=== PATIENT | male | born 1985 | race Caucasian/White ===

== ENCOUNTER 2016-03-24 13:31 | Emergency (ER) | payer OTHER ==
[2016-03-24] MEDS ORDERED: Albuterol/Ipratropium NEB.SOL* Albuterol 2.5 MG/Ipratropium 0.5 MG 3 ML ONE (13:36)
[2016-03-24] MEDS ORDERED: Albuterol/Ipratropium NEB.SOL* Albuterol 2.5 MG/Ipratropium 0.5 MG 3 ML INH ONE (13:44)
[2016-03-24] MEDS ORDERED: methylPREDNISolone 125 MG* 2 ML VIAL IV ONE (13:45)
[2016-03-24] MEDS ORDERED: NS 0.9% 1000 ML* 1,000 ML IV ONE (13:45)
[2016-03-24] MEDS ORDERED: LORazepam INJ* 2 MG/ML 1 ML VIAL IV PUSH ONE (13:46)
[2016-03-24 14:20] VITALS: BP 151/96
[2016-03-24 14:21] LABS: Hematocrit 45 % (42-52); Hemoglobin 15.2 g/dl (14.0-18.0); Mean Corpuscular HGB Conc 34 g/dl (31-36); Mean Corpuscular Hemoglobin 29 pg (27-31); Mean Corpuscular Volume 87 fL (80-94); Mean Platelet Volume 8 um3 (7.4-10.4); Red Cell Distribution Width 13 % (10.5-15)
[2016-03-24 14:47] LABS: Albumin 4.3 g/dL (3.2-5.2); BUN/Creatinine Ratio 14.6 (8-20); C Reactive Protein 8.03 mg/L (< 5.00); EGFR African American 141.9 (>60); EGFR Non-African American 110.3 (>60); Globulin 3.2 g/dL (2-4); Potassium 3.4 mmol/L (3.5-5.0); Total Bilirubin 0.4 mg/dL (0.2-1.0); Total Protein 7.5 g/dL (6.4-8.9)
--- NOTE | 2016-03-24 15:19 | RAD ---
Indication: Shortness of breath, chest pain. Asthma. Panic attack. Comparison: None. Technique: Upright AP 1355 hours Report: Clear lungs and pleural spaces. Negative for pneumothorax. The heart, pulmonary vasculature, and mediastinal contours are unremarkable. Unremarkable osseous structures and soft tissue contours. IMPRESSION: No evidence for acute intrathoracic disease.
[2016-03-24] MEDS ORDERED: Potassium Chlor TAB* 20 MEQ TAB.ER PO ONE (15:24)
--- NOTE | 2016-03-24 15:30 | ED ---
Elbert Cruz Billy, scribed for Baron Reyes MD on 03/24/16 at 1404 . Asthma - HPI Summary HPI Summary: Patient is a 31 year-old male coming to [facility] presenting with an "asthma attack " following medication administered for eye dilation. He also reports productive cough and wheezing, "feeling like I have pneumonia even though I know I don't." He has no other complaints at this time. - History of Current Complaint Chief Complaint: EDAsthma Stated Complaint: DIFF BREATHING Time Seen by Provider: 03/24/16 13:33 Hx Obtained From: Patient Onset/Duration: Sudden Onset Timing: Constant Initial Severity: Moderate Current Severity: Moderate Pain Intensity: 5 Pain Scale Used: 0-10 Numeric Location/Character: Wheezing Aggravating Symptoms: Nothing Alleviating Symptoms: Nothing Associated Signs and Symptoms: Positive: Shortness of Breath, Other - productive cough - Allergy/Home Medications Allergies/Adverse Reactions: Allergies Allergy/AdvReac Type Severity Reaction Status Date / Time Doxycycline Allergy Severe GI Upset Verified 03/24/16 14:03 Prednisone Allergy Severe Itching Verified 03/24/16 14:03 Aspirin Allergy Unknown Unknown Verified 03/24/16 14:03 Reaction Details Penicillin G Allergy Unknown Unknown Verified 03/24/16 14:03 Reaction Details PMH/Surg Hx/FS Hx/Imm Hx Endocrine/Hematology History: Denies: Hx Diabetes, Hx Sickle Cell Disease Cardiovascular History: Denies: Hx Hypertension, Hx Pacemaker/ICD, Other Cardiovascular Problems/ Disorders Respiratory History: Reports: Hx Asthma - HAS INHALER GI History: Reports: Hx Gastroesophageal Reflux Disease - PT TAKES TUMS WHEN NEEDED, Hx Irritable Bowel - MILD SINCE REMOVAL OF GALLBLADDER, Hx Ulcer - HAD REMOVED Denies: Other GI Disorders History: Reports: Hx Kidney Stones - ON AND OFF Denies: Hx Renal Disease, Other Problems/Disorders Musculoskeletal History: Denies: Other Musculoskeletal History Sensory History: Reports: Hx Contacts or Glasses - GLASSES Denies: Hx Hearing Aid Opthamlomology History: Reports: Hx Contacts or Glasses - GLASSES Neurological History: Reports: Hx Migraine Psychiatric History: Reports: Hx Anxiety, Hx Depression Denies: Hx Panic Disorder - Surgical History Surgery Procedure, Year, and Place: GALLBLADDER 2012, ORAL X 9, RIGHT KNEE - 19 YRS OLD Hx Anesthesia Reactions: No - SLEEPS ALONG TIME AFTER Infectious Disease History: No Infectious Disease History: Denies: Traveled Outside the [place] in Last 30 Days - Family History Known Family History: Positive: Diabetes, Other - cancer - Social History Alcohol Use: None Substance Use Type: Reports: None Smoking Status (MU): Never Smoked Tobacco Review of Systems Negative: Fever Positive: Shortness Of Breath, Cough, Other - wheezing All Other Systems Reviewed And Are Negative: Yes Physical Exam - Summary Physical Exam Summary: VITAL SIGNS: Reviewed. GENERAL: Patient is an obese male with some distress secondary to the shortness of breath. However, he is able to speak in full sentences. HEAD AND FACE: Normocephalic and atraumatic. EYES: PERRLA, EOMI x 2, No injected conjunctiva. EARS: Hearing grossly intact. Ear canals and tympanic membranes WNL MOUTH: Dry oral mucosa. NECK: Supple, trachea is midline, no adenopathy, no JVD, no carotid bruit. CHEST: Symmetric, No intercostal or abdominal retraction, LUNGS: Diffuse bilateral wheezing and decreased breath sounds.No crackles. CVS: RRR,, S1 and S2 present, no murmurs or gallops appreciated. ABDOMEN: Soft, non-tender. No signs of distention. Positive BS. No rebound, no guarding, and no masses palpated. EXTREMITIES: FROM in all major joints, no edema, no cyanosis or clubbing. NEURO: Alert and oriented x 3. No acute neurological deficits. Speech is normal and follows commands. SKIN: Dry and warm Triage Information Reviewed: Yes Vital Signs On Initial Exam: Initial Vitals Temp Pulse Resp BP Pulse Ox 99 F 109 22 151/96 100 03/24/16 13:36 03/24/16 13:36 03/24/16 13:36 03/24/16 13:36 03/24/16 13:36 Vital Signs Reviewed: Yes - [place] Coma Scale Coma Scale Total: 15 Diagnostics - Vital Signs Vital Signs Temp Pulse Resp BP Pulse Ox 03/24/16 13:57 19 03/24/16 13:48 101 16 99 03/24/16 13:36 99 F 109 22 151/96 100 - Laboratory Lab Results: Lab Results 03/24/16 03/24/16 03/24/16 Range/Units 14:00 14:00 14:00 WBC 11.0 H (3.5-10.8) 10^3/ul RBC 5.20 (4.0-5.4) 10^6/ul Hgb 15.2 (14.0-18.0) g/dl Hct 45 (42-52) % MCV 87 (80-94) fL MCH 29 (27-31) pg MCHC 34 (31-36) g/dl RDW 13 (10.5-15) % Plt Count 300 (150-450) 10^3/ul MPV 8 (7.4-10.4) um3 Neut % (Auto) 62.2 (38-83) % Lymph % (Auto) 25.5 (25-47) % [place] % (Auto) 7.3 (1-9) % Eos % (Auto) 4.1 (0-6) % Baso % (Auto) 0.9 (0-2) % Absolute Neuts (auto) 6.9 (1.5-7.7) 10^3/ul Absolute Lymphs (auto) 2.8 (1.0-4.8) 10^3/ul Absolute Monos (auto) 0.8 (0-0.8) 10^3/ul Absolute Eos (auto) 0.4 (0-0.6) 10^3/ul Absolute Basos (auto) 0.1 (0-0.2) 10^3/ul Absolute Nucleated RBC 0.01 10^3/ul Nucleated RBC % 0.1 Sodium 137 (133-145) mmol/L Potassium 3.4 L (3.5-5.0) mmol/L Chloride 107 (101-111) mmol/L Carbon Dioxide 19 L (22-32) mmol/L Anion Gap 11 (2-11) mmol/L BUN 12 (6-24) mg/dL Creatinine 0.82 (0.67-1.17) mg/dL Est GFR ( Amer) 141.9 (>60) Est GFR (Non-Af Amer) 110.3 (>60) BUN/Creatinine Ratio 14.6 (8-20) Glucose 107 H (70-100) mg/dL Lactic Acid 4.7 H* (0.5-2.0) mmol/L Calcium 10.0 (8.6-10.3) mg/dL Total Bilirubin 0.40 (0.2-1.0) mg/dL AST 19 (13-39) U/L ALT 47 (7-52) U/L Alkaline Phosphatase 93 (34-104) U/L C-Reactive Protein 8.03 H (< 5.00) mg/L B-Natriuretic Peptide ( - 100) pg/mL Total Protein 7.5 (6.4-8.9) g/dL Albumin 4.3 (3.2-5.2) g/dL Globulin 3.2 (2-4) g/dL Albumin/Globulin Ratio 1.3 (1-3) 03/24/16 Range/Units 14:00 WBC (3.5-10.8) 10^3/ul RBC (4.0-5.4) 10^6/ul Hgb (14.0-18.0) g/dl Hct (42-52) % MCV (80-94) fL MCH (27-31) pg MCHC (31-36) g/dl RDW (10.5-15) % Plt Count (150-450) 10^3/ul MPV (7.4-10.4) um3 Neut % (Auto) (38-83) % Lymph % (Auto) (25-47) % [place] % (Auto) (1-9) % Eos % (Auto) (0-6) % Baso % (Auto) (0-2) % Absolute Neuts (auto) (1.5-7.7) 10^3/ul Absolute Lymphs (auto) (1.0-4.8) 10^3/ul Absolute Monos (auto) (0-0.8) 10^3/ul Absolute Eos (auto) (0-0.6) 10^3/ul Absolute Basos (auto) (0-0.2) 10^3/ul Absolute Nucleated RBC 10^3/ul Nucleated RBC % Sodium (133-145) mmol/L Potassium (3.5-5.0) mmol/L Chloride (101-111) mmol/L Carbon Dioxide (22-32) mmol/L Anion Gap (2-11) mmol/L BUN (6-24) mg/dL Creatinine (0.67-1.17) mg/dL Est GFR ( Amer) (>60) Est GFR (Non-Af Amer) (>60) BUN/Creatinine Ratio (8-20) Glucose (70-100) mg/dL Lactic Acid (0.5-2.0) mmol/L Calcium (8.6-10.3) mg/dL Total Bilirubin (0.2-1.0) mg/dL AST (13-39) U/L ALT (7-52) U/L Alkaline Phosphatase (34-104) U/L C-Reactive Protein (< 5.00) mg/L B-Natriuretic Peptide 9 ( - 100) pg/mL Total Protein (6.4-8.9) g/dL Albumin (3.2-5.2) g/dL Globulin (2-4) g/dL Albumin/Globulin Ratio (1-3) Result Diagrams: 03/24/16 14:00 03/24/16 14:00 Lab Statement: Any lab studies that have been ordered have been reviewed, and results considered in the medical decision making process. - Radiology CXR Xray Interpretation: No Acute Changes Radiology Interpretation Completed By: Radiologist Re-Evaluation - Re-Evaluation First Eval Re-Evaluation Time: 15:26 Change: Improved Asthma Course/Dx - Course Assessment/Plan: Patient is a 31 year-old male coming to [facility] presenting with an "asthma attack" following medication administered for eye dilation. He also reports productive cough and wheezing, "feeling like I have pneumonia even though I know I don't." He has no other complaints at this time. Bloodwork WNL except for slightly increased WBC of 11, potassium of 3.4 for which he was given potassium chloride. CXR shows no acute pathology. The patient seems to be very anxious, so he was given Ativan for anxiety, solu-medrol and albuterol for mild wheezing. After these medications, his symptoms have improved. It seems he had a mild exacerbation of asthma and anxiety. Therefore he will be discharged home to follow up with PCP. I discussed all the findings and test results with the patient. Patient was instructed to return to the emergency room immediately if any of the symptoms return or worsens. Patient understand and agree. Plan of care was discussed with the patient and understands and agrees. All questions were answered at patient satisfaction. There were no further complaints or concerns. Lung exam before discharge: CTA B/L. Good air exchange. No wheezing or crackles heard. CVS: S1 and S2 present. No murmurs appreciated. Patient is alert and oriented x 3. Patient is hemodynamically stable. Patient will be discharged home with follow up import export coordinator in the next 2-3 days - Diagnoses Differential Diagnosis/HQI/PQRI: Positive: Acute Asthma, Bronchitis, COPD Excerbation, Pneumonia, Reactive Airway Disease Provider Diagnoses: Asthma exacerbation, Anxiety Discharge - Discharge Plan Condition: Stable Disposition: HOME Patient Education Materials: Asthma (ED) Referrals: Noe Meyer MD [Primary Care Provider] - The documentation as recorded by the Elbert ashley Billy accurately reflects the service I personally performed and the decisions made by Eric lin Walter, MD.
== END 2016-03-24 15:49 | disposition home or self-care (01) ==
LOC: ED 13:31
DX: J45.901 Unspecified asthma with (acute) exacerbation (principal); F41.9 Anxiety disorder, unspecified; Z88.0 Allergy status to penicillin; Z88.6 Allergy status to analgesic agent; Z87.442 Personal history of urinary calculi
CPT/HCPCS: 36415; 71010; 80053; 83605; 83880; 85025; 86140; 94640; 96360; 96365; 96374; 96375; 99283; A9270-GY; J2060; J2930

== ENCOUNTER 2017-01-25 19:56 | Emergency (ER) | payer OTHER ==
[2017-01-25] MEDS ORDERED: NS 0.9% 1000 ML* 1,000 ML IV ONE (20:26)
[2017-01-25] MEDS ORDERED: Metoclopramide IV* 5 MG/ML 2 ML VIAL IV ONE (20:27)
[2017-01-25] MEDS ORDERED: Morphine INJ* 4 MG/ML 1 ML CARPUJECT IV ONE (20:29)
[2017-01-25] MEDS ORDERED: diPHENhydraMINE IV* 50 MG/ML 1 ml VIAL (BENADRYL) IV ONE (20:30)
[2017-01-25 21:03] LABS: Hematocrit 43 % (42-52); Hemoglobin 14.5 g/dl (14.0-18.0); Mean Corpuscular HGB Conc 34 g/dl (31-36); Mean Corpuscular Hemoglobin 30 pg (27-31); Mean Corpuscular Volume 88 fL (80-94); Mean Platelet Volume 8 um3 (7.4-10.4); Red Cell Distribution Width 13 % (10.5-15); White Blood Count 17.1 10^3/ul (3.5-10.8)
[2017-01-25] MEDS ORDERED: Magnesium Sulfate 2 GM IV* 2 GM/50 ML BAG IVPB ONE (21:03)
[2017-01-25] MEDS ORDERED: HYDROmorphone INJ* 2 MG/ML CARPUJECT SYRINGE IV SLOW PU ONE (21:03)
[2017-01-25 21:18] LABS: Albumin 4.1 g/dL (3.2-5.2); BUN/Creatinine Ratio 16.4 (8-20); Calcium 9.4 mg/dL (8.6-10.3); EGFR African American 177.9 (>60); EGFR Non-African American 138.4 (>60); Globulin 3.2 g/dL (2-4); Potassium 3.4 mmol/L (3.5-5.0); Total Bilirubin 0.4 mg/dL (0.2-1.0); Total Protein 7.3 g/dL (6.4-8.9)
[2017-01-25] MEDS ORDERED: Ketorolac INJ* 30 MG/ML 1 ML VIAL IV PUSH ONE ×2 (21:32→21:33)
[2017-01-25] MEDS ORDERED: Al Hydrox/Mg Hydrox/Simet LIQ* 30 ML UDC PO ONE ×2 (21:32→21:33)
[2017-01-25] MEDS ORDERED: Lidocaine 2% VISCOUS* 15 ML UDC PO ONE ×2 (21:32→21:34)
[2017-01-25 23:13] VITALS: BP 120/72
--- NOTE | 2017-01-25 23:18 | ED ---
Coreen Cruz Thomas, scribed for Brooke Rowland MD on 01/25/17 at 2100 . Headache - HPI Summary HPI Summary: The pt is a 32 y/o M presenting to the ED c/o a migraine headache that began today at 16:30. The pain is constant and located throughout his head. The pain is rated 6/10. The headache is aggravated by strong smells. It is alleviated by nothing. The patient has treated the headache with Sumatriptan and ibuprofen. [employer]OR EMPLOYMENT [employer]OCIATE. The patient was given NTG x1 and Zofran prior to arrival. Pt additionally c /o chest pain that began today at 18:00 radiates to his right arm and jaw. The patient vomited once earlier. The patient is prescribed [place] for chronic knee and back pain. - History Of Current Complaint Chief Complaint: EDChestPainROMI Stated Complaint: MIGRAINE Time Seen by Provider: 01/25/17 20:17 Hx Obtained From: Patient Onset/Duration: Started hours ago - onest today at 16:30, Still Present Currently Pain Is: Current Pain Scale(0-10)= - 6 Timing: Constant Character: Migraine Location of Headache: Diffuse Aggravating Factor: Nothing Allevating Factors: Nothing Associated Signs And Symptoms: Vomiting, Other (Noted In Comments) - Chest pain - Allergies/Home Medications Allergies/Adverse Reactions: Allergies Allergy/AdvReac Type Severity Reaction Status Date / Time Doxycycline Allergy Severe GI Upset Verified 10/13/16 09:42 Prednisone Allergy Severe Itching Verified 10/13/16 09:42 Penicillin G Allergy Unknown Unknown Verified 10/13/16 09:42 Reaction Details PMH/Surg Hx/FS Hx/Imm Hx Previously Healthy: No Endocrine/Hematology History: Denies: Hx Diabetes, Hx Sickle Cell Disease Cardiovascular History: Denies: Hx Hypertension, Hx Pacemaker/ICD, Other Cardiovascular Problems/ Disorders Respiratory History: Reports: Hx Asthma - HAS INHALER GI History: Reports: Hx Gastroesophageal Reflux Disease - PT TAKES TUMS WHEN NEEDED, Hx Irritable Bowel - MILD SINCE REMOVAL OF GALLBLADDER, Hx Ulcer - HAD REMOVED Denies: Other GI Disorders History: Reports: Hx Kidney Stones - ON AND OFF Denies: Hx Renal Disease, Other Problems/Disorders Musculoskeletal History: Denies: Other Musculoskeletal History Sensory History: Reports: Hx Contacts or Glasses - GLASSES Denies: Hx Hearing Aid Opthamlomology History: Reports: Hx Contacts or Glasses - GLASSES Neurological History: Reports: Hx Migraine Psychiatric History: Reports: Hx Anxiety, Hx Depression Denies: Hx Panic Disorder - Surgical History Surgery Procedure, Year, and Place: GALLBLADDER 2012, ORAL X 9, RIGHT KNEE - 19 YRS OLD Hx Anesthesia Reactions: No - SLEEPS ALONG TIME AFTER Infectious Disease History: No Infectious Disease History: Denies: Traveled Outside the [place] in Last 30 Days - Family History Known Family History: Positive: Diabetes, Other - cancer - Social History Alcohol Use: None Substance Use Type: Reports: Marijuana Smoking Status (MU): Former Smoker Type: Cigarettes Length of Time of Smoking/Using Tobacco: 6 yrs Have You Smoked in the Last Year: No Review of Systems Positive: Chest Pain Positive: Vomiting Positive: Headache All Other Systems Reviewed And Are Negative: Yes Physical Exam - Summary Physical Exam Summary: VITAL SIGNS: Reviewed. GENERAL: Patient is a well-developed and nourished male who is lying comfortable in the stretcher. Patient is not in any acute respiratory distress. HEAD AND FACE: No signs of trauma. No ecchymosis, hematomas or skull depressions. No sinus tenderness. EYES: PERRLA, EOMI x 2, No injected conjunctiva, no nystagmus. EARS: Hearing grossly intact. Ear canals and tympanic membranes are within normal limits. MOUTH: Oropharynx within normal limits. NECK: Supple, trachea is midline, no adenopathy, no JVD, no carotid bruit, no c- spine tenderness, neck with full ROM. CHEST: Symmetric, no tenderness at palpation LUNGS: Clear to auscultation bilaterally. No wheezing or crackles. CVS: Regular rate and rhythm, S1 and S2 present, no murmurs or gallops appreciated. ABDOMEN: Soft, non-tender. No signs of distention. No rebound no guarding, and no masses palpated. Bowel sounds are normal. EXTREMITIES: FROM in all major joints, no edema, no cyanosis or clubbing. NEURO: Alert and oriented x 3. No acute neurological deficits. Speech is normal and follows commands. SKIN: Dry and warm Triage Information Reviewed: Yes Vital Signs On Initial Exam: Initial Vitals BP 156/98 01/25/17 20:04 Vital Signs Reviewed: Yes - [place] Coma Scale Coma Scale Total: 15 Diagnostics - Vital Signs Vital Signs Temp Pulse Resp BP Pulse Ox 01/25/17 20:52 18 01/25/17 20:30 84 21 126/60 98 01/25/17 20:07 98.4 F 70 15 156/98 99 01/25/17 20:05 72 10 100 01/25/17 20:04 156/98 - Laboratory Result Diagrams: 01/25/17 20:59 01/25/17 20:59 Lab Statement: Any lab studies that have been ordered have been reviewed, and results considered in the medical decision making process. - EKG 20:34 Cardiac Rate: NL EKG Rhythm: Sinus Rhythm EKG Interpretation: 74 BPM. Normal axis. Normal interval. No ischemic changes. Headache Course/Dx - Course Assessment/Plan: The pt is a 32 y/o M presenting to the ED c/o a migraine headache as well as chest pain. In the ED course the patient was given Maalox, Benadryl, Dilaudid, IV fluids, Toradol, Lidocaine viscous, magnesium sulfate, Reglan, and Morphine. Bloodwork shows WBC 17.1. EKG was obtained. The patient is diagnosed with migraine headache and atypical chest pain. The patient is instructed to follow up with primary care. - Diagnoses Provider Diagnoses: Migraine headache, Atypical chest pain Discharge - Discharge Plan Condition: Stable Disposition: HOME Patient Education Materials: Chest Pain (ED), Migraine Headache (ED) Referrals: Noe Meyer MD [Primary Care Provider] - 3 Days Additional Instructions: Follow up with your primary care provider in 3 days. Return to the emergency department for any new or worsening symptoms. The documentation as recorded by the Coreen ashley Thomas accurately reflects the service I personally performed and the decisions made by , Brooke Rowland MD.
== END 2017-01-25 23:43 | disposition home or self-care (01) ==
LOC: ED 19:56
DX: G43.909 Migraine, unspecified, not intractable, without status migrainosus (principal); R07.89 Other chest pain; K21.9 Gastro-esophageal reflux disease without esophagitis; Z88.0 Allergy status to penicillin
CPT/HCPCS: 36415; 80053; 84484; 85025; 93005; 96360; 96374; 96375; 96376; 99284; A9270-GY; J1200; J1885; J2270; J2765; J3475

== ENCOUNTER 2017-07-26 21:25 | Emergency (ER) | payer OTHER ==
--- OUTSIDE RECORDS SUMMARY | 2017-07-26 21:52 | XMS REPORT ---
:1985 External Reference #:[id number] Author Organization [facility] Address [address] [place] [address] Phone [phone] Care Team Providers Name Role Phone Noe Meyer MD Primary Care Physician Unavailable Payers Type Date Identification Numbers Payment Provider Subscriber Commercial Effective: Policy Number: [id number] [employer] Frank Tillman 2010 Medicaid PayID: [id number] [address] [address] [place] [address] Problems Date Description Provider Status Onset: 08/27/2014 Chondromalacia of patella Osorio Gill M.D. Active Onset: 09/27/2015 Lumbar radiculopathy Raffy Corona M.D. Active Onset: 07/16/2016 Migraine without aura, not refractory Demi Robb M.D. Active Family History Date Family Member(s) Problem(s) Comments General Cancer General Diabetes Social History Type Date Description Comments Lives With Girlfriend Occupation Currently Working Occupation [employer] ETOH Use Denies alcohol use Recreational Drug Use Denies Drug Use Smoking Patient is a former smoker Exercise Type/Frequency Does not exercise Allergies, Adverse Reactions, Alerts Date Description Reaction Status Severity Comments 04/04/2013 Penicillins active 09/20/2013 Aspirin Contact dermatitis active 08/27/2014 Amoxicillin active 08/27/2014 Clindamycin active 06/28/2017 Isopropamide active 06/28/2017 Alcohol rubbing active Medications Medication Date Status Form Strength Qnty SIG Indications Ordering Provider Sumatriptan 07/16/ Active Tablets 100mg 12tab 1/2-1 tab G43.009 Demi Anand Succinate 2017 s by mouth Stackman, as needed M.D. Hydrocodone-Dejan / Active Tablets 10-325mg 1 by mouth Unknown taminophen 0000 every 4-6 hours prn. Valium / Active Tablets 5mg 1-1 /2 as Unknown 0000 needed anxiety Proair HFA / Active Aerosol 108(90Base 2 puffs by Unknown 0000 ) mcg/Act mouth every 4 hours as needed Gaviscon Extra / Active Suspension 254-237.5m as needed Unknown Strength 0000 g/5ML with meals ( helps with nausea , heartburn ) Zyrtec Allergy / Active Capsules 20mg one tab by Unknown 0000 mouth everyday Multi Adult / Active Chewtabs 1 by mouth Unknown Gummies 0000 every day Aleve / Active Capsules 220mg 1-2 by Unknown 0000 mouth twice a day as needed Prozac / Active Capsules 20mg one by Unknown 0000 mouth twice a day Minipress / Active Capsules 1mg at night Unknown 0000 as needed Gabapentin / Active Capsules 600mg One tab Unknown 0000 twice daily Topiramate 07/30/ Hx Tablets 25mg 120ta 2-4 tabs G43.009 Demi Anand 2017 - bs by mouth Stackman, 02/03/ every day M.D. 2016 at bedtime as directed Divalproex 07/16/ Hx Tablets DR 500mg 60tab 1 tab by G43.009 Demi Anand Sodium 2016 - s mouth Stackodette, 07/07/ twice a M.D. 2016 day as directed [place] 11/08/ Hx Tablets 5-325mg 60tab take 1-2 Osorio 2012 - tab po Jairo, 10/06/ every 4-6 M.D. 2014 hours as needed for pain Hydrocodone/Dejan 09/27/ Hx Tablets 5-325mg 30tab 1 to two Osorio taminophen 2012 - s tabs po q Jairo, 09/05/ 4-6h prn M.D. 2014 Alprazolam / Hx Tablets 0.5mg 20tab 1 tab po Unknown 0000 - s bid prn 08/26/ anxiety 2015 Proair HFA / Hx Aerosol 108(90Base 1unit 2 puffs by Unknown 0000 - ) mcg/Act s mouth every 4 2015 hours as needed Multivitamins / Hx Capsules 30cap 1 capsule Unknown 0000 - s daily 2014 Tylenol Extra / Hx Tablets 500mg 100ta 2 by mouth Unknown Strength 0000 - bs as needed 2014 Naproxen / Hx Tablets 500mg 30tab 2 by mouth Unknown 0000 - s twice a day as 2015 needed Xanax / Hx Tablets 0.25mg one by Unknown 0000 - mouth up to three 2016 times daily as needed for anxiety Prozac / Hx Capsules 20mg 1 by mouth Unknown 0000 - every day 2016 Replax / Hx Tablet 40mg 1 tab prn Unknown 0000 - and my repeat 2017 dose in 2 hrs if needed, not to exceed 2 per week (makes patient hallucinat e) Vital Signs Date Vital Result Comment 06/28/2017 Height 74 inches 6'2" Weight 270.00 lb Heart Rate 76 /min BP Systolic Sitting 126 mmHg BP Diastolic Sitting 86 mmHg Respiratory Rate 16 /min BMI (Body Mass Index) 34.7 kg/m2 02/04/2017 Height 74 inches 6'2" Weight 272.00 lb Heart Rate 84 /min BP Systolic 118 mmHg BP Diastolic 76 mmHg Respiratory Rate 14 /min BMI (Body Mass Index) 34.9 kg/m2 07/30/2016 Height 74 inches 6'2" Weight 273.00 lb Heart Rate 78 /min BP Systolic Sitting 110 mmHg BP Diastolic Sitting 70 mmHg Respiratory Rate 14 /min BMI (Body Mass Index) 35.0 kg/m2 07/16/2016 Height 74 inches 6'2" Weight 270.00 lb Heart Rate 84 /min BP Systolic Sitting 112 mmHg BP Diastolic Sitting 86 mmHg Respiratory Rate 14 /min BMI (Body Mass Index) 34.7 kg/m2 09/27/2015 Height 74 inches 6'2" Weight 267.00 lb Heart Rate 78 /min BP Systolic Sitting 132 mmHg BP Diastolic Sitting 80 mmHg Pain Level 6 BMI (Body Mass Index) 34.3 kg/m2 08/27/2014 Height 74 inches 6'2" Weight 260.00 lb Pain Level 6 BMI (Body Mass Index) 33.4 kg/m2 11/02/2013 Height 74 inches 6'2" Weight 245.00 lb Heart Rate 80 /min BP Systolic Sitting 138 mmHg BP Diastolic Sitting 86 mmHg Respiratory Rate 20 /min BMI (Body Mass Index) 31.5 kg/m2 09/20/2013 Height 74 inches 6'2" Weight 233.00 lb Heart Rate 80 /min BP Systolic Sitting 120 mmHg BP Diastolic Sitting 88 mmHg Respiratory Rate 16 /min BMI (Body Mass Index) 29.9 kg/m2 Results Description No Information Procedures Date CPT Code Description Status 05/31/2017 33906 Allergy Test, Patch Or Application Completed 11/02/2013 23412 Nerve Conduction 03-04 Studies Completed 11/02/2013 04639 Needle Electromyography Complete, Five Or More Muscles Completed Studied 11/16/2012 80741 Arthroscopy,Knee,Meniscectomy Medial Or Lateral Completed 04/25/2012 38970 Xray Knee 3 Views Completed 04/25/2012 75997 Xray Knee 3 Views Completed 04/25/2012 10050 Rad Exam; Knee, Ap&L Completed 04/25/2012 39568 Rad Exam; Knee, Ap&L Completed 12/16/2010 15240 Xray Knee 3 Views Completed 12/16/2010 33490 Xray Knee 3 Views Completed Encounters Type Date Location Provider CPT E/M Dx Office Visit 06/04/2017 11:00a [facility] [place] [address] L23.9 Office Visit 06/02/2017 2:10p [facility] [place] [address] L23.9 Office Visit 05/24/2017 3:00p [facility] [place] [address] L23.9 L30.8 Office Visit 02/04/2017 9:15a [facility] Demi Robb, 15397 G43.001 Services [facility] [employer] Estimator M.DCharis Office Visit 07/30/2016 11:45a [facility] Demi Robb 44340 G43.009 Services Of Shop Estimator M.DCharis Office Visit 07/16/2016 9:00a [facility] Demi Robb 64286 G43.009 Services Of Shop Estimator M.D. Office Visit 09/27/2015 9:30a [facility] Raffy Corona 65306 M54.16 Of Waldo Polo.DCharis Office Visit 08/27/2014 10:30a [facility] Osorio Gill M.D. 55196 717.7 C.M.A. Office Visit 09/20/2013 10:00a [facility] Linette Davis, 20540 719.46 Services Of [place]do Ro 782.0 724.5 Office Visit 09/05/2013 9:15a [facility] O[facility] Gill M.D. 26545 719.46 C.M.A. Office Visit 04/06/2013 2:00p [facility] O[facility] Gill M.D. 38454 719.46 C.M.A. Office Visit 09/27/2012 11:45a [facility] O[facility] Gill M.D. 98771 836.2 C.M.A. Office Visit 06/28/2012 2:00p [facility] O[facility] Gill M.D. 63650 844.8 C.M.A. 719.46 Office Visit 06/10/2012 3:15p [facility] Gill M.D. 84367 719.46 C.M.A. 844.8 Office Visit 04/25/2012 8:30a [facility] Brandon Donn, 07429 719.46 C.M.A. MTonny. Office Visit 12/16/2010 11:00a [facility] Mohsen Roberts, 44892 719.46 C.M.A. M.DCharis Plan of Care Future Appointment(s):10/07/2017 2:30 pm - Cory Zuniga M.D. at [facility]06/28/2017 - Cory Zuniga M.D.G43.001 Migraine w/ o aura, not intractable, with status migrainosusRecommendations:1. Recommend Riboflavin 400mg / day 2. Call with any new symptoms 3. Follow up with mental healthfor your depression 4. Continue trigger reduction
--- OUTSIDE RECORDS SUMMARY | 2017-07-26 21:52 | XMS REPORT ---
:1985 External Reference #:[id number] Author Organization [facility] Address [address] [place] [address] Phone [phone] Care Team Providers Name Role Phone Noe Meyer MD Care Team Information Sap Specialist Unavailable Noe Meyer MD Primary Care Physician Unavailable Payers Type Date Identification Numbers Payment Provider Subscriber Medicaid Effective: Policy Number: [id number] [facility] Romain Jarvis 2016 PayID: [id number] [address] [address] [place] [address] Health Maintenance Effective: Policy Number: [facility] Romain Fortune [facility] (O) 03/08/2016 [id number] [place] [employer] Expires: 06/05/2016 PayID: [id number] [employer] Claims [employer] [address] [place] [id number] Problems Date Description Provider Status Onset: 07/22/2016 Knee pain Noe Meyer M.D. Active Onset: 02/10/2016 Low back pain Noe Meyer M.D. Active Onset: 09/24/2014 Malaise and fatigue Noe Meyer M.D. Active Onset: 08/07/2014 General symptom Noe Meyer M.D. Active Onset: 05/22/2013 Pain in limb Noe Meyer M.D. Active Onset: 05/22/2013 Backache Noe Meyer M.D. Active Onset: 11/30/2012 Acute maxillary sinusitis Noe Meyer M.D. Active Onset: 08/25/2011 Sprain pelvic ligament Johnnie Perry M.D. Active Onset: 05/08/2011 Anxiety state Chica Louis M.D. Active Onset: 05/08/2011 Posttraumatic stress disorder Chica Louis M.D. Active Onset: 05/08/2011 Contusion of toe Chica Louis M.D. Active Onset: 05/08/2011 Psychogenic vomiting Chica Louis M.D. Active Onset: 05/08/2011 Headache Chica Louis M.D. Active Onset: 04/15/2011 Disorder of teeth AND/OR Noe Meyer M.D. Active supporting structures Onset: 11/28/2010 Tobacco user Ivis Pacheco M.D. Active Onset: 11/28/2010 Acute upper respiratory infection Ivis Pacheco M.D. Active Social History Type Date Description Comments Smoking Patient is a former smoker Allergies, Adverse Reactions, Alerts Date Description Reaction Status Severity Comments 08/08/2001 Penicillin active 08/08/2001 Asa active 11/28/2010 Wellbutrin active suicidal thoughts 05/08/2011 NSAIDs active 12/20/2014 Doxycycline active projectile vomiting 07/14/2017 Isopropyl Alcohol active Medications Medication Date Status Form Strength Qnty SIG Indications Ordering Provider Azithromycin 07/14/ Active Tablets 250mg 6tabs 2 tabs J45.21 Noe T. 2018 today, then Gill 1 tab daily MD ricki for next 4 days Qvar Redihaler 07/14/ Active Aerosol 80mcg/Act 10.600 one puff J45.21 Noe T. 2018 gm bid. 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 needed pain Nebulizer 12/20/ Active Kit 1units dx: asthma J20.9 Clementina Ruiz Kit/Tubing/Yarelis 2014 vivian Camacho DIRECTOR [employer] Albuterol 12/20/ Active Nebulizer (2.5mg/3ML 75ml 1 vial via J20.9 Latonia Sulfate 2014 ) 0.083% nebulizer Darnell, every 4 [employer] ENGINEERING TECHNOLOGIST hours as needed J06.9 Valium Active Tablets 5mg 1 bid Unknown Gabapentin Active Capsules 300mg take 1 cap Unknown tid Prednisone 05/19/2017 - Hx Tablets 5mg 14ta 4 tabs R21 Dahiana Kemp 07/14/2017 bs today, 4 Meyers, DIRECTOR [employer] tabs tomorrow, 3 tabs day 3, 2 tabs day 4, 1 tab day 5. Nystatin-Triamcin 05/19/2017 - Hx Cream [id number] 60gm aply to R21 Daihana Viridiana olone 07/14/2017 0.1Unit affected Meyers, DIRECTOR [employer]WRITER [employer] /GM-% area 2-3 times a day until clear Prednisone 03/25/2017 - Hx Tablets 20mg 8tab take 2 by R06. Clementina Ruiz 04/14/2017 s mouth as one 2 Doug, dose daily DIRECTOR [employer] until gone Zithromax 03/25/2017 - Hx Tablets 250mg 6tab take two by J06Charis Ruiz 04/14/2017 s mouth as 9 Doug, first dose, [employer] then take one by mouth daily until gone Medrol 09/30/2016 - Hx TBPK 4mg 1uni use as Noe Love 03/24/2017 ts sunil Meyer M.D. Azithromycin 08/10/2016 - Hx Tablets 250mg 6tab take 2 H61. 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 unable to do any work for at least 3more months Azithromycin 05/01/2016 - Hx Tablets 250mg 12tabs take 2 J06. Latonia 05/13/2016 tablets by 9 Darnell, mouth x 3d [employer]INEERING TECHNOLOGIST then take 1 tablet daily for next 6 days Mask For Use With 05/01/2016 - Hx 2units use up to J06. Latonia Nebulizer 08/09/2016 three times a 9 Darnell, day for [employer]CH[employer]OLOGIST cough/wheeze, dx: asthma lifelong Nystatin-Triamcin 04/03/2016 - Hx Cream 250138 60gm aply to R21 Latonia olone 09/30/2016 -0.1Un affected area Darnell, it/GM- 2-3 times a [employer]INEERING TECHNOLOGIST % day until clear Relpax 04/03/2016 - Hx Tablets 40mg samples 1 at the R51 Latonia 04/24/2016 onset of Darnell, migraine [employer]IST Work Excuse 02/24/2016 - Hx for medical Noe Love 04/03/2016 reasons romain Meyer is M.DCharis unable to do any work for at least one mth Sumatriptan 02/23/2016 - Hx Tablets 50mg 9tabs take 1 tablet Anahi L. Succinate 04/13/2016 by mouth at Fidelia White headache - repeat in 2 hours Lotrisone 02/10/2016 - Hx Cream 1-0.05 30gm use on skin Noe Love 04/03/2016 % twice a day Jia Meyer Work Excuse 02/10/2016 - Hx unable to do Noe Love 04/03/2016 snap job [employer] due to M.D. his physical and mental limitations Proair HFA 01/07/2016 - Hx Aerosol 108(90 8.5units Inhale 2 Noe Love 05/02/2016 Base) Puffs By kiana Meyer/Ac Mouth Every 4 M.D. t Hours as Needed For Asthma/Shortn ess Of Breath Physical Therapy 12/30/2015 - Hx treatment and Noe Love 04/13/2016 evaluation Mitch low back pain M.DCharis Zithromax Z-Darell 12/06/2015 - Hx Tablets 250mg 1Pack as directed Noe Love 12/30/2015 Jia Meyer Proair HFA 04/04/2015 - Hx Aerosol 108(90 8.500gm 2 puffs every R05 Noe Love 12/30/2015 Base) 4 hours as Breiman, mcg/Ac needed for M.D. t asthma/sob Cheratussin ac 04/04/2015 - Hx Solution 100-10 100ml 5 milliliters R05 Cheri 08/30/2015 mg/5ML by mouth Darline, every 12 [employer]INEERING [employer]CH[employer]OLOGIST hours as needed cough Clobetasol 03/18/2015 - Hx Ointment 0.05% 30gm apply to Noe Mcintyre. Propionate 08/30/2015 affected Gilmern, area(s) two M.D. times daily as needed Saline 12/21/2014 - Hx Solution 180units use in [facility]. 08/30/2015 nebulizer as sunil Meyer. M.D. Azithromycin 12/20/2014 - Hx Tablets 250mg 6tabs 2 tabs today; J20. Janet 12/25/2014 then one tab 9 Demetria, every day x 4 Afnp-C more days Physical Therapy 08/07/2014 [facility] Mitch low back pain M.D. with water therapy Doxycycline 06/21/2014 - Hx Capsules 100mg 2caps 2 by mouth x E906 Janet Hyclate 06/22/2014 one dose .4 Demetria, Afnp-C Hydrocodone-Aceta 12/04/2013 - Hx Tablets 5-325m 60tabs 1 pill twice Latonia minophen 04/03/2016 g a day dt call Darnell, [employer] ENGINEERING TECHNOLOGIST Proventil HFA 04/26/2013 - Hx Aerosol 108(90 8.5units Inhale Two [facility]. 08/30/2015 Base) Puffs By Mitch mcg/Ac Mouth Every 4 M.D. t To 6 Hours as Needed For Shortness Of Breath Ventolin HFA 11/30/2012 - Hx Aerosol 108(90 1units 2 puffs Noe Love 04/26/2013 Base) qd-qid Breiman, mcg/Ac M.D. t Azithromycin 11/30/2012 - Hx Tablets 250mg 6tabs 2 po today 465. Noe Love 05/22/2013 and 1 po x 4 9 Breiman, days M.D. Xanax 10/02/2012 - Hx Tablets 0.5mg 60tabs use bid prn Noe Love 04/18/2014 anxiety dt Jia Meyer Nystatin/Triamcin 08/15/2012 - Hx Cream [id number] 60mg apply thin 112. Latonia olone 11/30/2012 -0.1Un layer tid 89 Darnell, it/GM- [employer] ENGINEERING TECHNOLOGIST % Proventil HFA 05/17/2012 - Hx Aerosol 108(90 1units two puffs 493. Johnnie TCharis 11/30/2012 Base) once every 90 Midura, mcg/Ac 4-6 hours prn Jia t SOB Zofran Odt 09/21/2011 - Hx Tablets 4mg 10tabs 1 po q 4-6 Noe Love 03/21/2012 Dispers hours prn Mitch nausea Christ.DCharis Vicodin 09/21/2011 - Hx Tablets 10/325 30tabs 1 po q4hrs Noe Love 03/21/2012 prja Meyer M.D. Physical Therapy 07/06/2011 - Hx treatment and Johnnie T. 08/25/2011 evaluation Midura, bilateral M.D. knee pain Zofran 05/08/2011 - Hx Tablets 8mg 12tabs 1 tablet po Chica Howe 08/25/2011 q8h as needed Missy, nausea/vomiti M.DCharis ng Diazepam 05/08/2011 - Hx Tablets 5mg 4tabs 1 tab po x 1 Chica Howe 08/25/2011 before dental Missyalice jaquez M.D. may repeat in 1/2 hour as needed anxiety Lexapro 12/04/2009 - Hx Tablets 10mg 28tabs 1 po qd 311 Janet 03/04/2010 Mariel Augustin Neurontin 12/04/2009 - Hx Capsules 100mg 1 po bid x 2 311 Family 03/04/2010 days, then Medicine tid [facility] Lomotil 11/21/2008 - Hx Tablets 2.5mg 25tabs 1 po after Cheri 12/04/2009 loose bm, rip Nair, repeat if M.D. needed after 2 hours Azithromycin 09/21/2007 - Hx Tablets 250mg 6tabs 2 po today 465. Noe Love 04/15/2011 and 1 po x 4 9 marlon Meyer MCharisDCharis Albuterol HFA 09/21/2007 - Hx Aerosol 90mcg/ One two puffs 493. Kahn A. 09/21/2007 Act every 4-6 90 Jia Savage hours as needed Proventil 09/21/2007 - Hx Aerosol 90mcg/ 1units two puffs 493. Noe Love 05/17/2012 Act once every 90 Breiman, 4-6 hours prn Christ.DCharis SOB Adderall XR 05/20/2005 - Hx Capsules 20mg 30caps 1 PO qd Johnnie TCharis 05/10/2007 Jia Perry Ketek 11/29/2004 - Hx Tablets 2Dose 20tabs 10 days Myron Kate 12/09/2004 Paks Jia Johnson Prednisone 11/29/2004 - Hx Solution 20mg 5units 20MG PO qd Myron JCharis 12/04/2004 X'S 5 Days Jia Johnson Cefzil 04/10/2004 - Hx 500mg 20units 1 PO bid Johnnie TCharis 11/29/2004 Jia Perry Zyprexa 04/10/2004 - Hx 5 20units 1 q hs prn Johnnie Gutierrez 05/20/2005 for sleep Jia Perry Naproxen 03/10/2004 - Hx 500mg 60units 1 bid with Johnnie TCharis 05/20/2005 food prn pain Jia Perry Levaquin 02/29/2004 - Hx 500mg 10units 1 qd Noe Love 03/10/2004 Jia Meyer Lexapro 02/29/2004 - Hx 10mg 30units 1 po qd Johnnie TCharis 05/20/2005 Jia Perry School Excuse 01/07/2004 - Hx unable to Johnnie T. 03/10/2004 attend school [place] 12/23-12/31 Jia due to illness. Levaquin 12/24/2003 - Hx 500mg 10units 1 qd Johnnie TCharis 03/10/2004 Jia Perry Nebulizer 12/24/2003 - Hx 1units Compressor, Johnnie Gutierrez 05/10/2007 Hand Held Jennifer Perry M.D. With Tubing For Aerosol Treatments Albuterol 12/24/2003 - Hx 0.083% [id number] one unit dose Johnnie T. Solution 05/10/2007 q4h prn Edu Perry. Advair Discus 12/17/2003 - Hx 100/50 I one Johnnie T. 05/10/2007 inhalation Midura, twice daily M.D. Zithromax 12/17/2003 - Hx 250mg 6units 2 tabs day 1 Johnnie T. 12/24/2003 Midura, 1 M.D. tab qd days 2 thru 5 Nettie-D 12/17/2003 - Hx 60mg 60units 1 po bid prn Johnnie T. 05/10/2007 for allergy Midura, symptoms M.D. Wellbutrin SR 07/24/2003 - Hx 150mg 0units 1 po qam Family 12/17/2003 [facility] 07/24/2003 - Hx 10mg 12units qd Latonia 12/24/2003 LONG Patrick Zithromax 06/19/2003 - Hx 250mg 6units 2 tabs day 1 Janet 06/24/2003 Marian Augustin Afnp-C tab qd days 2 thru 5 Scopolamine 05/23/2003 - Hx 4units 0NE q3RD day Sergei SCharis 07/24/2003 Jia Adame Biaxin XL 05/21/2003 - Hx 500mg 20units 2 po qd Rick A. 05/31/2003 Jia Stewrat Entex-LA (Without 03/06/2003 - Hx 30units 1 po bid prn Sergei Kilpatrick Ppa) 05/21/2003 Jia Adame Congestion Physical Therapy 09/05/2002 - Hx Treatment And Sergei Kilpatrick 11/30/2002 Evaluation Jia Adame For Knee Pain Entex-LA (Without 08/03/2002 - Hx 60units 1 PO bid prn Sergei S. Ppa) 11/30/2002 Jia Adame Zithromax 07/04/2002 - Hx 250mg 6units 2 Tabs Day 1 Janet 07/09/2002 Demetria 1 Afnp-C Tab qd Days 2 Thru 5 Flovent 07/04/2002 - Hx 44mcg 1units 2 Puffs bid Janet 11/30/2002 Navin Augustin-C Ultracet 06/01/2002 - Hx 37.5/3 50units 1 PO qid prn Sergei SCharis 05/21/2003 25 Pain Jia Adame Wellbutrin-SR 04/19/2002 - Hx 100mg 30units 1 po q hs Sergei S. 07/25/2003 Jia Adame Clarinex 04/19/2002 - Hx 5mg 30units 1 po qd Sergei SCharis 12/17/2003 Jia Adame Adderall-XR 04/19/2002 - Hx 20mg 30units 1 po qd Sergei SCharis 11/30/2002 Jia Adame Wellbutrin 03/15/2002 - Hx 150mg 30units 1 PO qam Sergei SCharis 05/21/2003 Jia Adame Zithromax 02/17/2002 - Hx 250mg 6units 2 Tabs Day 1 Sergei Shonna 02/23/2002 Jia Adame 1 Tab qd Days 2 Thru 5 Claritin 02/06/2002 - Hx 10mg 100units 1 qd Rick A. 04/19/2002 Jia Stewart School Excuse 12/29/2001 - Hx Take Rick A. 12/30/2001 Wellbutrin On Field Vinicius Stewart M.D. In The Morning Wellbutrin-SR 12/15/2001 - Hx 100mg 60units 1QDx3D,Then Rick A. 03/21/2002 bid Jia Stewart Proventil HFA 12/02/2001 - Hx 2units 2 puffs q6h Myron J. 05/10/2007 Jia Johnson Clarinex 11/10/2001 - Hx 5mg 30units 1 qd Rick A. 12/15/2001 Jia Stewart Adderall 08/08/2001 - Hx 20mg 30units 1 po qd Rick Oliveros 04/19/2002 Jia Stewart Albuterol Inhaler 08/08/2001 - Hx 2units Q 4HR prn Rick A. 07/04/2002 Jia Stewart Vicodin - Hx Tablets Unknown 08/25/2011 Diazepam - Hx Tablets 5mg 5tabs /2 - 1 po Unknown 08/15/2012 bid or tid prn Vicodin - Hx Tablets 5-300m 60tabs 1 po q4hrs Unknown 12/04/2013 g prn Xanax - Hx Tablets 1mg 1 by mouth Unknown 03/18/2015 twice a day as needed Fluoxetine HCL - Hx Capsules 20mg 20caps 1 by mouth Unknown 05/22/2016 every day Ambien - Hx Tablets 5mg 1 by mouth Unknown 06/21/2014 every night at bedtime as needed sleep Ambien - Hx Tablets 5mg 1 tab by Unknown 12/30/2015 mouth at bedtime as needed Temazepam - Hx Capsules 7.5mg 1 by mouth Unknown 03/18/2015 every night prn Cyclobenzaprine - Hx Unknown HCL 03/24/2017 Immunizations CPT Code Status Date Vaccine Reaction Lot # 51669 Given 04/13/2016 Influenza Vac, Quadrivalent, [id number] [place] [address] Given 11/23/2011 Tdap Tetanus, W Pertussis no reaction noted [id number] 59019 Given 01/07/2005 DO Not Use Split Influenza Virus Vaccine 18458 Given 01/07/2005 DO Not Use Split Influenza Virus Vaccine 00793 Given 02/11/2004 Influenza Virus Vaccine, Live For Intranasla Use 68272 Given 11/30/2002 DO Not Use Split Influenza Virus Vaccine 08488 Given 12/15/2001 Influenza Immunization 79362 Given 12/15/2001 DO Not Use Split Influenza Virus Vaccine 62238 Given 11/15/2001 DTaP Immunization Vital Signs Date Vital Result Comment 07/14/2017 BP Systolic 118 mmHg BP Diastolic 66 mmHg Heart Rate 90 /min Body Temperature 99.1 F Respiratory Rate 16 /min Height 74 inches 6'2" Weight 267.25 lb BMI (Body Mass Index) 34.3 kg/m2 05/19/2017 Body Temperature 98.4 F Height 74 inches 6'2" Weight 271.00 lb BMI (Body Mass Index) 34.8 kg/m2 04/15/2017 BP Systolic 120 mmHg BP Diastolic 84 mmHg Heart Rate 72 /min Body Temperature 97.0 F Height 74 inches 6'2" Weight 267.25 lb BMI (Body Mass Index) 34.3 kg/m2 03/25/2017 BP Systolic 114 mmHg BP Diastolic 70 mmHg Heart Rate 84 /min Body Temperature 98.8 F Respiratory Rate 16 /min Height 74 inches 6'2" Weight 270.00 lb BMI (Body Mass Index) 34.7 kg/m2 02/03/2017 BP Systolic 122 mmHg BP Diastolic 88 mmHg Heart Rate 92 /min Body Temperature 99.5 F Height 74 inches 6'2" Weight 272.00 lb BMI (Body Mass Index) 34.9 kg/m2 09/30/2016 BP Systolic 124 mmHg BP Diastolic 88 mmHg Heart Rate 84 /min Body Temperature 97.0 F Height 74 inches 6'2" Weight 269.25 lb BMI (Body Mass Index) 34.6 kg/m2 08/12/2016 BP Systolic 112 mmHg BP Diastolic 68 mmHg Heart Rate 80 /min Respiratory Rate 16 /min Height 74 inches 6'2" 08/10/2016 BP Systolic 120 mmHg BP Diastolic 80 mmHg Heart Rate 84 /min Body Temperature 98.1 F Respiratory Rate 18 /min Height 74 inches 6'2" Weight 271.00 lb BMI (Body Mass Index) 34.8 kg/m2 07/22/2016 BP Systolic 116 mmHg BP Diastolic 76 mmHg Heart Rate 78 /min Body Temperature 9.9 F Respiratory Rate 16 /min Height 74 inches 6'2" Weight 268.00 lb BMI (Body Mass Index) 34.4 kg/m2 05/01/2016 BP Systolic 120 mmHg BP Diastolic 70 mmHg Heart Rate 60 /min Body Temperature 98.2 F Respiratory Rate 18 /min Height 74 inches 6'2" Weight 265.00 lb BMI (Body Mass Index) 34.0 kg/m2 04/13/2016 BP Systolic 130 mmHg BP Diastolic 90 mmHg Heart Rate 88 /min Body Temperature 98.2 F Respiratory Rate 18 /min Height 74 inches 6'2" Weight 268.00 lb BMI (Body Mass Index) 34.4 kg/m2 04/03/2016 BP Systolic 128 mmHg BP Diastolic 84 mmHg Heart Rate 80 /min Body Temperature 99.2 F Respiratory Rate 18 /min Height 74 inches 6'2" Weight 282.00 lb BMI (Body Mass Index) 36.2 kg/m2 03/18/2016 BP Systolic 128 mmHg BP Diastolic 80 mmHg Heart Rate 84 /min Body Temperature 98.6 F Respiratory Rate 18 /min Height 74 inches 6'2" Weight 282.00 lb BMI (Body Mass Index) 36.2 kg/m2 02/24/2016 BP Systolic 124 mmHg BP Diastolic 80 mmHg Heart Rate 72 /min Body Temperature 99.2 F Respiratory Rate 16 /min Height 74 inches 6'2" Weight 276.00 lb BMI (Body Mass Index) 35.4 kg/m2 02/18/2016 BP Systolic 128 mmHg BP Diastolic 80 mmHg Heart Rate 68 /min Body Temperature 98.0 F Respiratory Rate 18 /min Height 74 inches 6'2" Weight 282.00 lb BMI (Body Mass Index) 36.2 kg/m2 02/10/2016 BP Systolic 118 mmHg BP Diastolic 80 mmHg Heart Rate 68 /min Body Temperature 97.6 F Respiratory Rate 18 /min Height 74 inches 6'2" Weight 281.38 lb BMI (Body Mass Index) 36.1 kg/m2 12/30/2015 BP Systolic 130 mmHg BP Diastolic 84 mmHg Heart Rate 74 /min Body Temperature 97.6 F Respiratory Rate 18 /min Height 74 inches 6'2" Weight 270.38 lb BMI (Body Mass Index) 34.7 kg/m2 08/30/2015 BP Systolic 124 mmHg BP Diastolic 70 mmHg Heart Rate 68 /min Body Temperature 97.2 F Respiratory Rate 16 /min Height 74 inches 6'2" Weight 260.00 lb BMI (Body Mass Index) 33.4 kg/m2 04/04/2015 BP Systolic 128 mmHg BP Diastolic 80 mmHg Heart Rate 80 /min Body Temperature 98.1 F Respiratory Rate 18 /min Height 74 inches 6'2" Weight 262.00 lb BMI (Body Mass Index) 33.6 kg/m2 03/18/2015 BP Systolic 126 mmHg BP Diastolic 80 mmHg Heart Rate 76 /min Body Temperature 97.9 F Respiratory Rate 18 /min Height 74 inches 6'2" Weight 261.00 lb BMI (Body Mass Index) 33.5 kg/m2 12/20/2014 BP Systolic 118 mmHg BP Diastolic 72 mmHg Heart Rate 76 /min Body Temperature 97.8 F Respiratory Rate 16 /min Height 74 inches 6'2" Weight 258.00 lb BMI (Body Mass Index) 33.1 kg/m2 09/24/2014 BP Systolic 128 mmHg BP Diastolic 90 mmHg Heart Rate 110 /min Body Temperature 98.8 F Height 74 inches 6'2" Weight 257.00 lb BMI (Body Mass Index) 33.0 kg/m2 08/07/2014 BP Systolic 124 mmHg BP Diastolic 80 mmHg Heart Rate 62 /min Body Temperature 97.3 F Respiratory Rate 20 /min Height 74 inches 6'2" Weight 257.00 lb BMI (Body Mass Index) 33.0 kg/m2 06/21/2014 BP Systolic 130 mmHg BP Diastolic 90 mmHg Heart Rate 80 /min Body Temperature 98.1 F Respiratory Rate 16 /min Height 74 inches 6'2" Weight 262.00 lb BMI (Body Mass Index) 33.6 kg/m2 04/18/2014 BP Systolic 124 mmHg BP Diastolic 80 mmHg Heart Rate 68 /min Body Temperature 97.8 F Respiratory Rate 18 /min Height 74 inches 6'2" Weight 260.00 lb BMI (Body Mass Index) 33.4 kg/m2 12/04/2013 BP Systolic 122 mmHg BP Diastolic 80 mmHg Heart Rate 70 /min Body Temperature 97.0 F Respiratory Rate 18 /min Height 74 inches 6'2" Weight 253.00 lb BMI (Body Mass Index) 32.5 kg/m2 05/22/2013 BP Systolic 126 mmHg BP Diastolic 80 mmHg Heart Rate 72 /min Body Temperature 97.1 F Respiratory Rate 20 /min Height 74 inches 6'2" Weight 252.00 lb BMI (Body Mass Index) 32.4 kg/m2 11/30/2012 BP Systolic 124 mmHg BP Diastolic 80 mmHg Heart Rate 72 /min Body Temperature 99.5 F Respiratory Rate 18 /min Height 74 inches 6'2" Weight 264.00 lb BMI (Body Mass Index) 33.9 kg/m2 09/23/2012 BP Systolic 118 mmHg BP Diastolic 78 mmHg Heart Rate 72 /min Body Temperature 97.6 F Height 74 inches 6'2" Weight 259.00 lb BMI (Body Mass Index) 33.2 kg/m2 08/15/2012 BP Systolic 122 mmHg BP Diastolic 84 mmHg Heart Rate 88 /min Body Temperature 98.6 F Height 74 inches 6'2" Weight 259.00 lb BMI (Body Mass Index) 33.2 kg/m2 03/21/2012 BP Systolic 122 mmHg BP Diastolic 88 mmHg Heart Rate 78 /min Body Temperature 98.0 F Height 74 inches 6'2" Weight 234.00 lb BMI (Body Mass Index) 30.0 kg/m2 09/21/2011 BP Systolic 120 mmHg BP Diastolic 72 mmHg Heart Rate 80 /min Body Temperature 97.0 F Height 74 inches 6'2" Weight 215.00 lb BMI (Body Mass Index) 27.6 kg/m2 08/25/2011 BP Systolic 120 mmHg BP Diastolic 80 mmHg Heart Rate 86 /min Body Temperature 100.0 F Respiratory Rate 20 /min Height 74 inches 6'2" Weight 206.00 lb BMI (Body Mass Index) 26.4 kg/m2 05/08/2011 BP Systolic 110 mmHg BP Diastolic 80 mmHg Heart Rate 72 /min Body Temperature 95.5 F Height 74 inches 6'2" 04/15/2011 BP Systolic 118 mmHg BP Diastolic 88 mmHg Heart Rate 72 /min Body Temperature 97.6 F Height 74 inches 6'2" Weight 196.00 lb BMI (Body Mass Index) 25.2 kg/m2 12/03/2010 BP Systolic 110 mmHg BP Diastolic 78 mmHg Heart Rate 72 /min Body Temperature 96.8 F Height 74 inches 6'2" Weight 199.00 lb BMI (Body Mass Index) 25.5 kg/m2 11/28/2010 BP Systolic 118 mmHg BP Diastolic 70 mmHg Heart Rate 84 /min Body Temperature 98.9 F Height 74 inches 6'2" Weight 196.00 lb BMI (Body Mass Index) 25.2 kg/m2 03/04/2010 BP Systolic 110 mmHg BP Diastolic 70 mmHg Heart Rate 72 /min Body Temperature 97.0 F Respiratory Rate 15 /min Height 74 inches 6'2" Weight 185.00 lb BMI (Body Mass Index) 23.8 kg/m2 12/04/2009 BP Systolic 110 mmHg BP Diastolic 64 mmHg Heart Rate 72 /min Height 74 inches 6'2" Weight 182.00 lb BMI (Body Mass Index) 23.4 kg/m2 07/03/2009 BP Systolic 108 mmHg BP Diastolic 64 mmHg Heart Rate 82 /min Body Temperature 97.8 F O2 % BldC Oximetry 99 % Weight 192.00 lb 11/21/2008 BP Systolic 110 mmHg BP Diastolic 70 mmHg Heart Rate 80 /min Body Temperature 98.2 F Height 74 inches 6'2" Weight 199.00 lb BMI (Body Mass Index) 25.5 kg/m2 09/21/2007 BP Systolic 110 mmHg BP Diastolic 72 mmHg Heart Rate 72 /min Body Temperature 98.3 F Weight 202.00 lb 05/18/2007 BP Systolic 110 mmHg BP Diastolic 70 mmHg Heart Rate 60 /min Body Temperature 97.9 F Weight 201.00 lb 05/10/2007 BP Systolic 142 mmHg BP Diastolic 90 mmHg Body Temperature 98.0 F Weight 198.00 lb 05/20/2005 BP Systolic 140 mmHg BP Diastolic 90 mmHg Heart Rate 78 /min 11/29/2004 Body Temperature 98.8 F 04/10/2004 BP Systolic 112 mmHg BP Diastolic 76 mmHg Heart Rate 72 /min Body Temperature 96.3 F Weight 229.00 lb Weight Percentile >95th 03/26/2004 BP Systolic 128 mmHg BP Diastolic 70 mmHg Heart Rate 72 /min Weight 235.00 lb Weight Percentile >95th 03/10/2004 BP Systolic 116 mmHg BP Diastolic 64 mmHg Heart Rate 108 /min Weight 233.00 lb Weight Percentile >95th 02/29/2004 BP Systolic 112 mmHg BP Diastolic 70 mmHg Heart Rate 60 /min Body Temperature 98.4 F 01/07/2004 BP Systolic 114 mmHg BP Diastolic 68 mmHg Heart Rate 66 /min Body Temperature 98.3 F Weight 234.00 lb Weight Percentile >95th 12/24/2003 BP Systolic 126 mmHg BP Diastolic 70 mmHg Heart Rate 102 /min Body Temperature 98.8 F Weight 228.00 lb Weight Percentile >95th 12/17/2003 BP Systolic 130 mmHg BP Diastolic 76 mmHg Heart Rate 96 /min Body Temperature 98.3 F Weight 225.00 lb Weight Percentile >95th 07/24/2003 BP Systolic 136 mmHg LG Cuff BP Diastolic 78 mmHg LG Cuff Body Temperature 98.8 F With Tylenol Weight 231.00 lb Weight Percentile >95th 06/19/2003 BP Systolic 132 mmHg BP Diastolic 84 mmHg Heart Rate 80 /min Body Temperature 98.2 F Weight 225.00 lb Weight Percentile >95th 05/21/2003 BP Systolic 110 mmHg BP Diastolic 80 mmHg Heart Rate 92 /min Body Temperature 96.3 F Respiratory Rate 18 /min Weight 230.00 lb Weight Percentile >95th 03/06/2003 BP Systolic 140 mmHg BP Diastolic 90 mmHg Heart Rate 76 /min Body Temperature 98.3 F Weight 222.00 lb Weight Percentile >95th 12/07/2002 BP Systolic 142 mmHg BP Diastolic 60 mmHg Heart Rate 80 /min Body Temperature 97.7 F 11/30/2002 BP Systolic 150 mmHg BP Diastolic 88 mmHg Heart Rate 88 /min Height 71 inches 5'11" Measured Weight 227.00 lb BMI (Body Mass Index) 31.7 kg/m2 Weight Percentile >95th Height Percentile 76 % 08/03/2002 BP Systolic 130 mmHg BP Diastolic 80 mmHg Heart Rate 72 /min 07/04/2002 BP Systolic 130 mmHg BP Diastolic 72 mmHg Heart Rate 72 /min Body Temperature 97.0 F Weight 219.00 lb Weight Percentile >95th 06/01/2002 BP Systolic 128 mmHg BP Diastolic 80 mmHg Heart Rate 88 /min Weight 220.50 lb Weight Percentile >95th 04/19/2002 BP Systolic 126 mmHg BP Diastolic 68 mmHg Heart Rate 88 /min Weight 224.00 lb Weight Percentile >95th 03/15/2002 Heart Rate 80 /min Weight 226.00 lb Weight Percentile >95th 02/17/2002 BP Systolic 122 mmHg BP Diastolic 54 mmHg Heart Rate 72 /min Body Temperature 97.2 F Weight 226.00 lb Weight Percentile >95th 02/13/2002 BP Systolic 102 mmHg BP Diastolic 60 mmHg Heart Rate 96 /min Weight 226.00 lb Weight Percentile >95th 12/15/2001 BP Systolic 134 mmHg BP Diastolic 74 mmHg Height 70 inches 5'10" Weight 218.00 lb BMI (Body Mass Index) 31.3 kg/m2 Weight Percentile >95th Height Percentile 84 % 11/10/2001 BP Systolic 130 mmHg BP Diastolic 70 mmHg Heart Rate 80 /min Body Temperature 98.2 F Height 70 inches 5'10" Weight 218.00 lb BMI (Body Mass Index) 31.3 kg/m2 Weight Percentile >95th Height Percentile 84 % Right Visual Acuity Distance 20/20 08/08/2001 BP Systolic 120 mmHg BP Diastolic 80 mmHg Heart Rate 70 /min Respiratory Rate 18 /min Height 70 inches 5'10" Weight 207.00 lb BMI (Body Mass Index) 29.7 kg/m2 Weight Percentile >95th Height Percentile 84 % Results Test Date Test Result H/L Range Note Influenza A&B-fma 03/25/2017 Influenza A neg Influenza B neg CBC Auto Diff 01/25/2017 White Blood Count 17.1 10^3/uL High 3.5-10.8 Red Blood Count 4.90 10^6/uL 4.0-5.4 Hemoglobin 14.5 g/dL 14.0-18.0 Hematocrit 43 % 42-52 Mean Corpuscular Volume 88 fL 80-94 Mean Corpuscular Hemoglobin 30 pg 27-31 Mean Corpuscular HGB Conc 34 g/dL 31-36 Red Cell Distribution Width 13 % 10.5-15 Platelet Count 307 10^3/uL 150-450 Mean Platelet Volume 8 um3 7.4-10.4 Abs Neutrophils 13.6 10^3/uL High 1.5-7.7 Abs Lymphocytes 2.3 10^3/uL 1.0-4.8 Abs Monocytes 0.9 10^3/uL High 0-0.8 Abs Eosinophils 0.2 10^3/uL 0-0.6 Abs Basophils 0.1 10^3/uL 0-0.2 Abs Nucleated RBC 0 10^3/uL Granulocyte % 79.5 % 38-83 Lymphocyte % 13.7 % Low 25-47 Monocyte % 5.2 % 1-9 Eosinophil % 1.2 % 0-6 Basophil % 0.4 % 0-2 Nucleated Red Blood Cells % 0 Comp Metabolic Panel 01/25/2017 Sodium 136 mmol/L 133-145 Potassium 3.4 mmol/L Low 3.5-5.0 Chloride 104 mmol/L 101-111 Co2 Carbon Dioxide 26 mmol/L 22-32 Anion Gap 6 mmol/L 2-11 Glucose 90 mg/dL 70-100 Blood Urea Nitrogen 11 mg/dL 6-24 Creatinine 0.67 mg/dL 0.67-1.17 BUN/Creatinine Ratio 16.4 8-20 Calcium 9.4 mg/dL 8.6-10.3 Total Protein 7.3 g/dL 6.4-8.9 Albumin 4.1 g/dL 3.2-5.2 Globulin 3.2 g/dL 2-4 Albumin/Globulin Ratio 1.3 1-3 Total Bilirubin 0.40 mg/dL 0.2-1.0 Alkaline Phosphatase 96 U/L 34-104 Alt 31 U/L 7-52 Ast 16 U/L 13-39 Egfr Non- 138.4 >60 Egfr 177.9 >60 1 Laboratory test finding 01/25/2017 Troponin I 0.00 ng/mL <0.04 Influenza A&B-fma 04/04/2015 Influenza A neg Influenza B neg Comprehensive Metabolic Prof 09/24/2014 Sodium 142 mEq/L 134-149 Potassium 4.7 mEq/L 3.6-5.5 Chloride 103 mEq/L 94-112 Carbon Dioxide 23 mEq/L 21-32 Glucose 91 mg/dL 70-105 BUN 13 mg/dL 6-26 Creatinine 0.8 mg/dL 0.6-1.4 BUN/Creat Ratio 16.3 CALC 8.0-36.0 Calcium 9.9 mg/dL 8.6-10.2 Total Protein 7.7 g/dL 6.4-8.3 Albumin 4.5 g/dL 3.8-5.5 Globulin 3.2 g/dL 2.0-4.8 A/G Ratio 1.4 CALC 0.6-2.3 Alk. Phosphatase 112 U/L High 22-95 Alt (SGPT) 45 U/L High 7-35 Ast (Sgot) 20 U/L 5-34 Total Bilirubin 0.3 mg/dL 0.2-1.3 Laboratory test finding 09/24/2014 TSH 2.16 mIU/L 0.50-6.00 CBC Electronic (a) 09/24/2014 WBC 13.1 High 3.6-9.6 RBC 4.89 3.90-5.70 Hemoglobin (Fma/CMC/CTX) 14.9 g/dL 12.1 - 17.2 Hematocrit (Fma/CMC/CTX) 44.8 % 36.1 - 50.3 Platelets 437 10^3/ul High 150-400 Lymph% 24.3 % 17.0-48.0 Mixed% 3.0 Neutrophils % 72.7 Mean Corpuscular Vol 92 82.2-97.4 Mean Corpuscular Hemoglobin 30.6 27.6-33.3 Mean Corpuscular Hemo Concen 33.4 32.0-36.0 RDW 13.8 High 11.6-13.7 Mean Platelet Volume 7.0 5.5-11.0 Lyme Igg/M W/Reflx West 08/07/2014 Lyme IgG/IgM Ab <0.91 ISR 0.00- 0.90 2 Lyme Disease Ab, Quant, IgM <0.80 index 0.00-0.79 3 Surgical Pathology 05/01/2013 S RUN DATE: 05/02/ <SEE 4 NOTE> Clotest 05/01/2013 Clotest (SEE NOTE) 5 Laboratory test finding 11/28/2010 Quickstrep negative Negative Throat - Beta Strep Fma NEG@48HRS Comp Metabolic Panel 11/26/2010 Sodium 139 mmol/L 135-145 6 Potassium 4.4 mmol/L 3.5-5.0 6 Chloride 104 mmol/L 101-111 6 Co2 (Carbon Dioxide) 27.0 mmol/L 22-32 6 Anion Gap 8.0 mmol/L 2-11 6, 7 Glucose 88 mg/dL 70-100 6 BUN 11 mg/dL 6-24 6 Creatinine 0.6 mg/dL 0.50-1.40 6 One Over Creatinine 1.66 6 BUN/Creatinine Ratio 18.3 8-20 6 Calcium 9.7 mg/dL 8.1-9.9 6 Total Protein 7.0 GM/DL 6.2-8.1 6 Albumin 4.5 GM/DL 3.6-5.4 6 Globulin 2.5 GM/DL 2-4 6 Albumin/Globulin Ratio 1.8 1-3 6 Bilirubin Total 1.0 mg/dL 0.4-1.5 6, 8 Alkaline Phosphatase 77 U/L 39-117 6 Alt (SGPT) 22 U/L 17-63 6 Ast (Sgot) 18 U/L 12-42 6 eGFR Non- 165.5 > 60 6 eGFR 212.9 > 60 6, 9 Liver Function Panel 11/26/2010 Bilirubin Direct 0.2 mg/dL 0.1-0.5 6 Indirect Bilirubin 0.8 mg/dL 0.3-1.0 6, 10 CBC Auto Diff 07/22/2010 White Blood Count 12.1 CUMM High 4.8-10.8 Red Cell Count 5.03 CUMM 4.6-6.2 Hemoglobin 15.8 g/dL 14.0-18.0 Hematocrit 47 % 42-52 Mean Corpuscular Volume 94 um3 80-94 Mean Corpuscular Hemoglob 32 pg High 27-31 Mean Corpuscular HGB Cone 34 g/dL 32-36 Redcell Distribution WDTH 13 % 10.5-15 Platelet Count 300 CUMM 150-450 Mean Platelet Volume 8.4 um3 7.4-10.4 Gran % 57.2 % 38-83 Lymph % 34.0 % 25-47 Mononuclear % 6.0 % 1-9 Eosinophil % 2.3 % 0-6 Basophil % 0.5 % 0-2 Abs Lymphs 4.1 1.0-4.8 Abs Mononuclear 0.7 0-0.8 Absolute Neutrophil Count 6.9 1.5-7.7 Abs Eosinophils 0.3 0-0.6 Abs Basophils 0.1 0-0.2 Urinalysis W/Microscopic 07/22/2010 Ua Color YELLOW Yellow Appearance-Urine CLEAR Clear Specific [place]-Ur 1.005 Low 1.010-1.030 Esterase-Urine TRACE Negative Nitrite NEGATIVE Negative [id number] NEGATIVE Negative Protein-Urine NEGATIVE Negative PH-Urine 6.5 5-9 Blood-Urine NEGATIVE Negative Ketones-Urine NEGATIVE Negative Bilirubin-Ur NEGATIVE Negative Glucose-Urine NEGATIVE Negative WBC-Urine 0-2 0-5 RBC-Urine 0-2 0-2 Epith Cells-Ur RARE None Comp Metabolic Panel 07/22/2010 Sodium 140 mmol/L 135-145 Potassium 3.6 mmol/L 3.5-5.0 Chloride 104 mmol/L 101-111 Co2 (Carbon Dioxide) 28.0 mmol/L 22-32 Anion Gap 8.0 mmol/L 2-11 11 Glucose 86 mg/dL 70-100 BUN 9 mg/dL 6-24 Creatinine 0.50 mg/dL 0.50-1.40 One Over Creatinine 2.00 BUN/Creatinine Ratio 18.0 8-20 Calcium 9.5 mg/dL 8.1-9.9 Total Protein 6.9 GM/DL 6.2-8.1 Albumin 4.1 GM/DL 3.6-5.4 Globulin 2.8 GM/DL 2-4 Albumin/Globulin Ratio 1.5 1-3 Bilirubin Total 0.7 mg/dL 0.4-1.5 12 Alkaline Phosphatase 69 U/L 39-117 Alt (SGPT) 17 U/L 17-63 Ast (Sgot) 15 U/L 12-42 eGFR Non- 204.3 > 60 eGFR 262.7 > 60 13 Laboratory test finding 07/22/2010 Amylase 44 U/L 20-120 14 Lipase 30 U/L 22-51 Drug Screen, Urine, CTX 05/11/2003 Amphetamines NEGATIVE Negative Barbiturates NEGATIVE Negative Benzodiazepines * Negative 15 Cocaine NEGATIVE Negative Opiates NEGATIVE Negative Phencyclidine (PCP) NEGATIVE Negative Cannabis (THC) POSITIVE Negative 16 [facility] *[facility] Ethanol (Urine) <0.013 g/dL <.013 18 Drug Screen, Urine, CTX 02/15/2003 Amphetamines NEGATIVE Barbiturates NEGATIVE Benzodiazepines NEGATIVE Cocaine NEGATIVE Opiates NEGATIVE Phencyclidine (PCP) NEGATIVE Cannabis (THC) NEGATIVE Drugs Of Abuse *@[facility] 19 Ethanol (Urine) <0.013 g/dL <.013; 20 CBC Electronic ([facility]) 12/11/2002 WBC 8.7 3.6-9.6 Lymphocytes 33.4 % 20.5 - 51.1 Monocytes 2.8 % 1.7-9.3 Granulocytes 63.8 % 42.2 - 75.2 Lymphocytes 2.9 10^3/uL 0.7 - 4.9 Monocytes 0.2 10^3/uL 0.1 - 0.9 Granulocytes 5.6 10^3/uL 1.5 - 7.2 RBC 5.27 3.90-5.70 Hemoglobin (Fma/CMC/CTX) 15.6 g/dL 12.1 - 17.2 Hematocrit (a/CMC/CTX) 45.5 % 36.1 - 50.3 Mean Corpuscular Vol 86.3 82.2-97.4 Mean Corpuscular Hemaglobin 29.7 27.6-33.3 Mean Corpuscular Hemo Concen 34.4 33.0-34.8 RDW 12.9 11.6-13.7 Platelets 344. 10^3/ul 150-400 Mean Platelet Volume 7.8 7.4-10.4 Free T4/TSH ([facility]/CMC/[facility]) 12/11/2002 TSH 2.36 uIU/ml 0.5-6.0 Free T4 0.95 ng/dL 0.75-1.54 Laboratory test finding 12/11/2002 Hemoglobin A1c (F/C/CTX) 5.2% % 4.1- 5.7 Comp Metabolic ([facility]) 12/11/2002 Glucose, Serum (a/CMC/CTX) 110 mg/dL 70 -118 BUN (a/CMC/Centrex) 11 mg/dL 6-26 Creatinine (a/CMC/CTX) 0.8 mg/dL 0.6-1.4 BUN/Creatinin Ratio 14.4 8.0-36 Sodium 141 134-149 Potassium 4.8 3.6-5.5 Chloride 101 mEq/L 94-112 Co2 28 21-32 Calcium (a/CMC/Centrex) 9.6 mg/dL 8.6-10.0 Total Protein 7.4 g/dL 6.3-8.1 Albumin (Fma/CMCC/Centrex) 4.4 3.8-5.5 Globulin 3.0 2.0-4.8 A/G Ratio (Fma/CMC/Centrex) 1.5 0.6-2.2 Alkaline Phosphatase (F/C/CTX) 194 U/L High 30-110 Alt (SGPT) 29 10-40 Ast (Sgot) (Fma/CMC/Centrex) 15 U/mL 5-34 Bilirubin, Total 0.5 mg/dL 0.2-1.3 Drug Screen, Urine, CTX 11/30/2002 Amphetamines NEGATIVE Negative Barbiturates NEGATIVE Negative Benzodiazepines NEGATIVE Negative Cocaine NEGATIVE Negative Opiates NEGATIVE Negative Phencyclidine (PCP) NEGATIVE Negative Cannabis (THC) NEGATIVE Negative Ethanol (Urine) <0.013 g/dL <.013 21 Drug Screen, Urine, CTX 11/21/2002 Amphetamines NEGATIVE Barbiturates NEGATIVE Benzodiazepines NEGATIVE Cocaine NEGATIVE Opiates NEGATIVE Phencyclidine (PCP) NEGATIVE Cannabis (THC) NEGATIVE Drugs Of Abuse *@[facility] 22 Ethanol (Urine) <0.013 g/dL <.013; 23 Drug Screen, Urine, CTX 10/02/2002 Amphetamines NEGATIVE Negative Barbiturates NEGATIVE Negative Benzodiazepines NEGATIVE Negative Cocaine NEGATIVE Negative Opiates NEGATIVE Negative Phencyclidine (PCP) NEGATIVE Negative Cannabis (THC) POSITIVE Negative 24 Ethanol (Urine) <0.013 g/dL <.013 25 Laboratory test finding 10/02/2002 Comments see detail 26 Drug Screen, Urine, CTX 08/03/2002 Amphetamines POSITIVE 27 Barbiturates NEGATIVE Benzodiazepines NEGATIVE Cocaine NEGATIVE Opiates NEGATIVE Phencyclidine (PCP) NEGATIVE Cannabis (THC) POSITIVE 28 Ethanol (Urine) <0.013 g/dL <.013; 29 Laboratory test finding 04/20/2002 Throat Culture NEGATIVE Comp Metabolic (Fma) 02/13/2002 Albumin (Fma/CMCC/Centrex) 5.0 3.8-5.5 Alkaline Phosphatase 280 U/L High 36-117 Bilirubin, Total 0.6 mg/dL 0.2-1.3 BUN 12 7-26 Calcium 9.9 mg/dL 8.6-10.0 Creatinine 0.6 mg/dL 0.6-1.4 Glucose 93 mg/dL 70 - 118 Ast Sgot 27 U/L 5-40 Alt (SGPT) 37 10-40 Total Protein 8.3 g/dL 6.4-8.3 Sodium 141 134-149 Potassium 4.7 3.6-5.5 Chloride 101 mEq/L 94-112 Co2 30 21-32 Globulin 3.3 2.0-4.8 A/G Ratio (Fma/CMC/Centrex) 1.5 0.6-2.2 BUN/Creatinin Ratio 20.0 8.0-36 Drug Screen, Urine, CTX 12/12/2001 Amphetamine Screen SEE BELOW See Also Image Barbituate Screen " For Others Benzodiazepine " Recently Cannabinoid " Rreceived 12/29 Cocaine Screen " Opiate Screen " PCP Urine Screen " Amphetamines POSITIVE 30 Barbiturates NEGATIVE Benzodiazepines NEGATIVE Cocaine NEGATIVE Opiates NEGATIVE Phencyclidine (PCP) NEGATIVE Cannabis (THC) POSITIVE Ethanol (Urine) <0.013 g/dL <.013 31 Laboratory test finding 12/12/2001 Comments SEE IMAGE FOR Others Rec'd 1 Because ethnic data is not always readily available, this report includes an eGFR for both -Americans and non- Americans. The National Kidney Disease Education Program (NKDEP) does not endorse the use of the MDRD equation for patients that are not between the ages of 18 and 70, are , have extremes of body size, muscle mass, or nutritional status, or are non- or non-. According to the National Kidney Foundation, irrespective of diagnosis, the stage of the disease is based on the level of kidney function: Stage Description GFR(mL/min/1.73 m(2)) 1 Kidney damage with normal or decreased GFR 90 2 Kidney damage with mild decrease in GFR 60-89 3 Moderate decrease in GFR 30-59 4 Severe decrease in GFR 15-29 5 Kidney failure <15 (or dialysis) 2 Negative <0.91 Equivocal 0.91 - 1.09 Positive >1.09 3 Negative <0.80 Equivocal 0.80 - 1.19 Positive >1.19 IgM levels may peak at 3-6 weeks post infection, then gradually decline. 4 RUN DATE: 05/02/13 [facility] LAB LIVE PAGE 1 RUN TIME: [address] [place] [id number] Specimen Inquiry Name: ROMAIN JARVIS : [address]: Boyd Quan MD Acct: [id number] Unit: [id number] AGE: 28 Location: ENDO Re05/01/13 SEX: M Status: REG REF SPEC: [id number] [place]: 05/01/13- SUBM DR: Boyd Quan MD REQ: [id number] RECD: 05/01/13 STATUS: SHIVA APPLE DR: Noe Meyer MD _ ORDERED: LEVEL IV FINAL DIAGNOSIS Small bowel, duodenal biopsies: A. Small bowel mucosa with normal villous architecture and no significant pathologic abnormalities. B. No active inflammation, evidence of infectious agents, or viropathic changes are identified. CLINICAL HISTORY Emesis for EGD, vomiting. POST-OPERATIVE DIAGNOSIS EGD normal, biopsied stomach and duodenum GROSS DESCRIPTION The specimen is received in formalin labeled Romain Jarvis Duodenal Biopsies and consists of two, fry-pink, irregular, soft tissue fragments ranging from 0.3 x 0.2 x 0.1 cm. to 0.7 x 0.2 x 0.1 cm. Submitted entirely, one cassette. Signed (signature on file) Nikhil Mccoy MD [id number] END OF REPORT * ML=Testing performed at Main Lab DEPARTMENT OF PATHOLOGY, [facility] [address] [place], [place] [address] Nikhil Mccoy M.D. Director [facility] Permit #[id number] RUN DATE: 05/02/13 [facility] LAB LIVE PAGE 1 RUN TIME: 719 [facility] [employer] [place], [place] [address] Specimen Inquiry Name: ROMAIN JARVIS : [address]: Boyd Quan MD Acct: [id number] Unit: [id number] AGE: 28 Location: ENDO Re05/01/13 SEX: M Status: REG REF SPEC: [id number] [place]: 05/01/13-[address]: Boyd Quan MD REQ: [id number] RECD: 05/01/13 STATUS: COMP OTHR DR: Noe Meyer MD _ SOURCE: GAS ANTRUM SPDESC: ORDERED: Clotest Procedure Result Verified Site Clotest Final 05/02/13- 0720 ML Clotest Negative END OF REPORT * ML=Testing performed at Main Lab DEPARTMENT OF PATHOLOGY, [address] [place] [address] Nikhil Mccoy M.D. Director [facility] Permit #[id number] [facility] 12/03/10 7 Anion gap measurement may be of limited value in the presence of any alkalosis, especially in a combined acid base disorder. . 8 A metabolite of Naproxen, O-desmethylnaproxen, has been shown to interfere with the [place] method for measuring total bilirubin. Samples from patients who have taken Naproxen have shown spurious elevation in total bilirubin levels. 9 Because ethnic data is not always readily available, this report includes an eGFR for both -Americans and non- Americans. The National Kidney Disease Education Program (NKDEP) does not endorse the use of the MDRD equation for patients that are not between the ages of 18 and 70, are , have extremes of body size, muscle mass, or nutritional status, or are non- or non-. According to the National Kidney Foundation, irrespective of diagnosis, the stage of the disease is based on the level of kidney function: Stage Description GFR(mL/min/1.73 m(2)) 1 Kidney damage with normal or decreased GFR 90 2 Kidney damage with mild decrease in GFR 60-89 3 Moderate decrease in GFR 30-59 4 Severe decrease in GFR 15-29 5 Kidney failure <15 (or dialysis) 10 Please note updated reference range, effective 09/26/09 11 Anion gap measurement may be of limited value in the presence of any alkalosis, especially in a combined acid base disorder. . 12 A metabolite of Naproxen, O-desmethylnaproxen, has been shown to interfere with the [place]-Jayne method for measuring total bilirubin. Samples from patients who have taken Naproxen have shown spurious elevation in total bilirubin levels. 13 Because ethnic data is not always readily available, this report includes an eGFR for both -Americans and non- Americans. The National Kidney Disease Education Program (NKDEP) does not endorse the use of the MDRD equation for patients that are not between the ages of 18 and 70, are , have extremes of body size, muscle mass, or nutritional status, or are non- or non-. According to the National Kidney Foundation, irrespective of diagnosis, the stage of the disease is based on the level of kidney function: Stage Description GFR(mL/min/1.73 m(2)) 1 Kidney damage with normal or decreased GFR 90 2 Kidney damage with mild decrease in GFR 60-89 3 Moderate decrease in GFR 30-59 4 Severe decrease in GFR 15-29 5 Kidney failure <15 (or dialysis) 14 PLEASE NOTE NEW REFERENCE RANGE. 15 SENT TO REFERENCE LAB BENZODIAZEPINE CONFIRMATION, 05/15/03. SCREEN CUTOFF BENZODIAZEPINE NEGATIVE. 300 NG/ML 16 sent for confirmation Cannabinoid Confirmation 05/15/03. SCREEN CUTOFF CANNABINOID POSITIVE CARBOXY THC GC/MS CONF. 132 NG/ML 15 17 METHODOLOGY FOR THE ABOVE TEST(S) IS FOR SCREENING PURPOSES ONLY. POSITIVE RESULTS SHOULD BE CONSIDERED PRESUMPTIVE AND SHOULD BE FOLLOWED UP WITH CONFIRMATORY TESTING BY AN ALTERNATE METHOD. . THE SUBMITTED URINE SPECIMEN WAS TESTED AT THE LISTED CUTOFF: ASSAY SCREENING TEST CUTOFF (ng/mL) AMPHETAMINES (CLASS) 300 BARBITURATES (CLASS) 200 BENZODIAZEPINES (CLASS) 100 CANNABINOIDS 25 COCAINE METABOLITE 300 METHADONE 250 METHAQUALONE 300 OPIATES 200 PHENCYCLIDINE 25 PROPOXYPHENE 300 URINE ALCOHOL 13 mg/dL TRICYCLIC ANTIDEPRESSANTS SERUM 50 18 Minimum Detectable Level:13 mg/dl or 0.013% . FOR MEDICAL PURPOSES ONLY. . 19 METHODOLOGY FOR THE ABOVE TEST(S) IS FOR SCREENING PURPOSES ONLY. POSITIVE RESULTS SHOULD BE CONSIDERED PRESUMPTIVE AND SHOULD BE FOLLOWED UP WITH CONFIRMATORY TESTING BY AN ALTERNATE METHOD. . THE SUBMITTED URINE SPECIMEN WAS TESTED AT THE LISTED CUTOFF: ASSAY SCREENING TEST CUTOFF (ng/mL) AMPHETAMINES (CLASS) 300 BARBITURATES (CLASS) 200 BENZODIAZEPINES (CLASS) 100 CANNABINOIDS 25 COCAINE METABOLITE 300 METHADONE 250 METHAQUALONE 300 OPIATES 200 PHENCYCLIDINE 25 PROPOXYPHENE 300 URINE ALCOHOL 13 mg/dL TRICYCLIC ANTIDEPRESSANTS SERUM 50 20 Minimum Detectable Level:13 mg/dl or 0.013% . FOR MEDICAL PURPOSES ONLY. . 21 Minimum Detectable Level:13 mg/dl or 0.013% . FOR MEDICAL PURPOSES ONLY. . 22 METHODOLOGY FOR THE ABOVE TEST(S) IS FOR SCREENING PURPOSES ONLY. POSITIVE RESULTS SHOULD BE CONSIDERED PRESUMPTIVE AND SHOULD BE FOLLOWED UP WITH CONFIRMATORY TESTING BY AN ALTERNATE METHOD. . THE SUBMITTED URINE SPECIMEN WAS TESTED AT THE LISTED CUTOFF: ASSAY SCREENING TEST CUTOFF (ng/mL) AMPHETAMINES (CLASS) 300 BARBITURATES (CLASS) 200 BENZODIAZEPINES (CLASS) 100 CANNABINOIDS 25 COCAINE METABOLITE 300 METHADONE 250 METHAQUALONE 300 OPIATES 200 PHENCYCLIDINE 25 PROPOXYPHENE 300 URINE ALCOHOL 13 mg/dL TRICYCLIC ANTIDEPRESSANTS SERUM 50 23 Minimum Detectable Level:13 mg/dl or 0.013% . FOR MEDICAL PURPOSES ONLY. . 24 *sent out for confirmation 25 Minimum Detectable Level:13 mg/dl or 0.013% . FOR MEDICAL PURPOSES ONLY. . 26 Cannabinoid confirmation, Ur. ng/ml Result Screen Cutoff Confirm Cutoff Cannabinoid Positive Carboxy THC GC/MS conf. 26 15 27 sent for confirmation 28 sent for confirmation 29 Minimum Detectable Level:13 mg/dl or 0.013% . FOR MEDICAL PURPOSES ONLY. . 30 POSITIVE TESTS SENT FOR CONFIRMATION 31 Minimum Detectable Level:13 mg/dl or 0.013% . FOR MEDICAL PURPOSES ONLY. . Procedures Date CPT Code Description Status 08/10/2016 22168 Nebulizer Treatment Completed 04/03/2016 98820 Electrocardiogram Complete Completed Encounters Type Date Location Provider CPT E/M Dx Office Visit 05/19/2017 10:00a [place] [address] R21 Office Visit 04/15/2017 8:00a [facility] Office Noe Meyer M.D. 82390 M54.5 M25.561 R51 Office Visit 03/25/2017 1:30p [place] [address] R06.2 J06.9 Office Visit 02/03/2017 2:20p Main Office Noe Meyer M.D. 24764 R51 Office Visit 10/16/2016 9:10a Main Office Noe Meyer M.D. 88866 M54.5 M25.561 Office Visit 09/30/2016 2:10p Main Office Noe Meyer M.D. 18518 M54.5 Office Visit 08/12/2016 2:40p Main Office Noe Meyer M.D. 73673 M54.5 M25.561 M25.562 Office Visit 08/10/2016 1:45p [place] [address] J06.9 R06.2 Office Visit 07/22/2016 2:10p Main Office Noe Meyer M.D. 65089 M54.5 M25.561 F43.10 Office Visit 05/01/2016 11:00a Main Office Latonia PatrickPOLOP 39296 J06.9 Office Visit 04/13/2016 7:00p Main Office Latonia PatrickPOLOP 12520 S30.810A Z23 Office Visit 04/03/2016 1:30p Main Office Latonia PatrickPOLOP 55365 R21 R51 R07.89 Office Visit 03/18/2016 2:20p Main Office Noe Meyer M.D. 29665 R51 M54.5 F43.10 Office Visit 02/24/2016 1:40p Main Office Noe Meyer M.D. 30752 R51 Office Visit 02/18/2016 1:00p [facility] Noe Meyer M.D. 25142 M54.5 F43.10 Office Visit 02/10/2016 11:00a Main Office Noe Meyer M.D. 77210 M54.5 F43.10 Office Visit 12/30/2015 1:40p Main Office Noe Meyer M.D. 02748 M54.5 F43.10 R29.898 Z02.9 Office Visit 08/30/2015 1:40p Main Office Noe Meyer M.D. 92618 M54.5 F43.10 R29.898 Office Visit 04/04/2015 9:00a Main Office Cheri Gregorio [facility] 36731 R05 H65.03 Office Visit 03/18/2015 3:40p Main Office Noe Meyer M.D. 59430 H65.03 R21 Office Visit 12/20/2014 10:30a Main Office Janet Augustin myke 40056 J20.9 J45.21 Office Visit 09/24/2014 3:20p Main Office Noe Meyer M.D. 41767 780.79 Office Visit 08/07/2014 4:10p [facility] Noe Meyer M.D. 84840 309.81 719.69 Office Visit 06/21/2014 3:15p Main Office Janet Augustin mykeC 07001 E906.4 911.4 Office Visit 04/18/2014 5:40p Main Office Noe Meyer M.D. 51577 309.81 Office Visit 12/04/2013 3:20p Main Office Noe Meyer M.D. 54224 724.5 592.0 Office Visit 05/22/2013 11:20a Main Office Noe Meyer M.D. 57265 724.5 729.5 Office Visit 11/30/2012 7:40p Main Office Noe Meyer M.D. 05889 461.0 382.00 Office Visit 09/23/2012 11:10a Main Office Johnnie Perry M.D. 35963 300.00 784.0 Office Visit 08/15/2012 7:30p Main Office Latonia Patrick [facility] 79131 112.89 Office Visit 03/21/2012 11:20a Main Office Noe Meyer M.D. 15468 300.00 Office Visit 09/21/2011 2:00p Main Office Noe Meyer M.D. 93016 784.0 Office Visit 08/25/2011 5:00p Main Office Johnnie Perry M.D. 84407 848.5 Office Visit 05/08/2011 8:20a [facility] Office Chica Louis, 44704 784.0 M.DCharis 307.54 924.3 309.81 300.00 Office Visit 04/15/2011 5:10p Main Office Noe Meyer M.D. 93391 525.9 Office Visit 12/03/2010 9:10a Main Office Noe Meyer M.D. 58336 466.0 Office Visit 11/28/2010 11:40a Main Office Ivis Pacheco M.D. 95423 465.9 305.1 Office Visit 03/04/2010 12:20p Main Office Johnnie Perry M.D. 39737 922.1 535.00 719.46 Office Visit 12/04/2009 3:00p Main Office Janet Augustin Navin-C 54773 311 Office Visit 07/03/2009 1:40p Main Office Noe Meyer M.D. 20526 493.92 Office Visit 11/21/2008 10:20a Main Office Cheri Nair M.D. 00546 558.9 Office Visit 09/21/2007 8:10a Main Office Femi Savage M.D. 20786 465.9 493.90 Office Visit 05/18/2007 2:20p Main Office Johnnie Perry M.D. 05301 520.6 525.8 Office Visit 05/10/2007 2:40p [facility] Noe Meyer M.D. 45940 520.6 Office Visit 05/20/2005 3:50p Main Office Johnnie Perry M.D. 82314 920 Office Visit 11/29/2004 10:20a Main Office Myron Johnson M.D. 64775 493.92 Office Visit 04/10/2004 1:50p [facility] Johnnie Perry M.D. 95693 461.9 300.00 Office Visit 03/26/2004 10:00a Main Office Johnnie Perry M.D. 53588 719.46 Office Visit 03/10/2004 5:20p [facility] Office Johnnie Perry M.D. 84415 719.46 477.8 493.90 Office Visit 02/29/2004 12:00p [facility] Office Noe Meyer M.D. 21264 473.9 311 Office Visit 01/07/2004 6:20p [facility] Office Johnnie Perry M.D. 67664 493.90 477.9 461.9 Office Visit 12/24/2003 6:10p [facility] Office Johnnie Perry M.D. 25299 461.1 493.90 Office Visit 12/17/2003 1:10p [facility] Office Johnnie Perry M.D. 11725 787.02 461.9 477.9 493.90 Office Visit 07/24/2003 1:00p [facility] [place] 51124 477.9 Office Visit 06/19/2003 7:45p [facility] Office Mariel Lechuga 92307 461.9 Office Visit 05/21/2003 7:10p Main Office Rick Stewart M.D. 89040 473.8 Office Visit 03/06/2003 4:00p [facility] Office Sergei Adame M.D. 89222 465.9 314.01 Office Visit 12/07/2002 7:00p [facility] Office SARA [employer] 28573 784.0 780.79 Office Visit 11/30/2002 4:00p [facility] Office Sergei Adame M.D. [id number] 314.01 493.90 V04.8 305.90 Office Visit 08/03/2002 2:00p Main Office Sergei Adame M.D. 79611 314.01 Office Visit 07/04/2002 6:15p Main Office Mariel Lechuga 34985 493.90 461.0 Office Visit 06/01/2002 6:20p Main Office Sergei Adame M.D. 60115 719.46 314.00 Office Visit 04/19/2002 6:15p Main Office Mariel Agustin [id number] 314.00 465.9 784.1 Office Visit 03/15/2002 8:00a Main Office Rick Stewart M.D. 25580 719.46 Office Visit 02/17/2002 11:00a Main Office Sergei Adame M.D. 62569 461.1 Office Visit 02/13/2002 3:00p Main Office Rick Stewart M.D. 25105 304.90 312.9 Office Visit 12/15/2001 3:10p [facility] Rick Stewart M.D. 35352 Office Visit 11/10/2001 2:40p Main Office Rick Stewart M.D. 82877 Office Visit 08/08/2001 6:40p Main Office Rick Stewart M.D. 26909 Plan of Care 07/14/2017 - Noe Oliva MDJ02.9 Acute pharyngitis, unspecifiedNew Labs:[id number] Mild intermittent asthma with (acute) exacerbationNew Medication:Azithromycin 250 mgQvar Redihaler 80 mcg/ActComments:given the vaporized hashish (medical marijuana), the poorly controlled asthma and the sore throat, Iwill be treating as a COPD exacerbation with ABX. He also needs an inhaled corticosteroid.AllComments:~B_~U_Medication Management~b_~u_ Patient Understands medications he's taking? Yes No Are there Barriers to Adherence? Yes No Has the patient been asked about herbal supplements and therapies, and OTC meds? Yes No
[2017-07-26 22:54] LABS: ABS Basophils 0.1 10^3/ul (0-0.2); ABS Eosinophils 0.3 10^3/ul (0-0.6); ABS Lymphocytes 3.5 10^3/ul (1.0-4.8); ABS Monocytes 0.8 10^3/ul (0-0.8); ABS Neutrophils 9.1 10^3/ul (1.5-7.7); ABS Nucleated RBC 0 10^3/ul; Hematocrit 43 % (42-52); Hemoglobin 14.6 g/dl (14.0-18.0); Lymphocyte % 25.3 % (25-47); Mean Corpuscular HGB Conc 34 g/dl (31-36); Mean Corpuscular Hemoglobin 30 pg (27-31); Mean Corpuscular Volume 89 fL (80-94); Mean Platelet Volume 7.7 um3 (7.4-10.4); Nucleated Red Blood Cells % 0.1; Platelet Count 300 10^3/ul (150-450); Red Blood Count 4.86 10^6/ul (4.0-5.4); Red Cell Distribution Width 14 % (10.5-15); White Blood Count 13.7 10^3/ul (3.5-10.8)
[2017-07-26 23:14] LABS: EGFR Non-African American 131.5 (>60)
[2017-07-26] MEDS ORDERED: Ondansetron ODT TAB* 4 MG PO ONE (23:54)
--- NOTE | 2017-07-27 01:29 | ED ---
Nausea/Vomiting/Diarrhea HPI - HPI Summary HPI Summary: Intense sudden onset nausea vomiting 1 hour, with associated dizziness, lightheadedness. Denies fever, cough, sore throat, CP, SOB, diarrhea, abdominal pain, change in urinary BM. Medical history is PTSD, anxiety, chronic low back pain, chronic right knee pain. Denies EtOH, admits to medical marijuana. - History of Current Complaint Chief Complaint: EDNauseaVomitDiarrh Stated Complaint: VOMITING Time Seen by Provider: 07/26/17 23:49 Hx Obtained From: Patient Severity Initially: Mild Severity Currently: Moderate Pain Intensity: 5 Pain Scale Used: 0-10 Numeric - Allergies/Home Medications Allergies/Adverse Reactions: Allergies Allergy/AdvReac Type Severity Reaction Status Date / Time prednisone Allergy Severe Itching Verified 07/26/17 21:35 penicillin G Allergy Unknown Unknown Verified 07/26/17 21:35 Reaction Details balsam vanessa Allergy Unknown Verified 07/26/17 21:35 Reaction Details formaldehyde Allergy Unknown Verified 07/26/17 21:35 Reaction Details propylene glycol Allergy Unknown Verified 07/26/17 21:35 Reaction Details doxycycline AdvReac Severe GI Upset Verified 07/26/17 21:35 cinnamic aldehyde Allergy Unknown Uncoded 07/26/17 21:35 Reaction Details Methyldibromo Glutaronitrite Allergy Unknown Uncoded 07/26/17 21:35 Reaction Details PMH/Surg Hx/FS Hx/Imm Hx Endocrine/Hematology History: Denies: Hx Diabetes, Hx Sickle Cell Disease Cardiovascular History: Denies: Hx Hypertension, Hx Pacemaker/ICD, Other Cardiovascular Problems/ Disorders Respiratory History: Reports: Hx Asthma - HAS INHALER GI History: Reports: Hx Gastroesophageal Reflux Disease - PT TAKES TUMS WHEN NEEDED, Hx Irritable Bowel - MILD SINCE REMOVAL OF GALLBLADDER, Hx Ulcer - HAD REMOVED Denies: Other GI Disorders History: Reports: Hx Kidney Stones - ON AND OFF Denies: Hx Renal Disease, Other Problems/Disorders Musculoskeletal History: Denies: Other Musculoskeletal History Sensory History: Reports: Hx Contacts or Glasses - GLASSES Denies: Hx Hearing Aid Opthamlomology History: Reports: Hx Contacts or Glasses - GLASSES Neurological History: Reports: Hx Migraine Psychiatric History: Reports: Hx Anxiety, Hx Depression Denies: Hx Panic Disorder - Surgical History Surgery Procedure, Year, and Place: GALLBLADDER 2012, ORAL X 9, RIGHT KNEE - 19 YRS OLD Hx Anesthesia Reactions: No - SLEEPS ALONG TIME AFTER Infectious Disease History: No Infectious Disease History: Denies: Traveled Outside the [place] in Last 30 Days - Family History Known Family History: Positive: Diabetes, Other - cancer - Social History Alcohol Use: None Substance Use Type: Reports: Marijuana, Prescribed Substance Use Comment - Amount & Last Used: hydrocodone, valium, gabapentin Smoking Status (MU): Former Smoker Type: Cigarettes Length of Time of Smoking/Using Tobacco: 6 yrs Have You Smoked in the Last Year: No Review of Systems Constitutional: Negative Eyes: Negative ENT: Negative Cardiovascular: Negative Respiratory: Negative Positive: Vomiting, Nausea Genitourinary: Negative Musculoskeletal: Negative Skin: Negative Neurological: Negative Psychological: Normal All Other Systems Reviewed And Are Negative: Yes Physical Exam - Summary Physical Exam Summary: Physical exam unremarkable. Abdomen soft nontender. Triage Information Reviewed: Yes Vital Signs On Initial Exam: Initial Vitals Temp Pulse Resp BP Pulse Ox 97.6 F 81 15 122/73 97 07/26/17 21:27 07/26/17 21:27 07/26/17 21:27 07/26/17 21:27 07/26/17 21:27 Vital Signs Reviewed: Yes Appearance: Positive: Well-Appearing Skin: Positive: Warm Head/Face: Positive: Normal Head/Face Inspection Eyes: Positive: Normal Neck: Positive: Supple Respiratory/Lung Sounds: Positive: Clear to Auscultation Cardiovascular: Positive: Normal Abdomen Description: Positive: Nontender Musculoskeletal: Positive: Normal Neurological: Positive: Normal Psychiatric: Positive: Normal AVPU Assessment: Alert - [place] Coma Scale Best Eye Response: 4 - Spontaneous Best Motor Response: 6 - Obeys Commands Best Verbal Response: 5 - Oriented Coma Scale Total: 15 Diagnostics - Vital Signs Vital Signs Temp Pulse Resp BP Pulse Ox 07/26/17 21:27 97.6 F 81 15 122/73 97 - Laboratory Lab Results: Lab Results 07/26/17 07/26/17 Range/Units 22:46 22:46 WBC 13.7 H (3.5-10.8) 10^3/ul RBC 4.86 (4.0-5.4) 10^6/ul Hgb 14.6 (14.0-18.0) g/dl Hct 43 (42-52) % MCV 89 (80-94) fL MCH 30 (27-31) pg MCHC 34 (31-36) g/dl RDW 14 (10.5-15) % Plt Count 300 (150-450) 10^3/ul MPV 7.7 (7.4-10.4) um3 Neut % (Auto) 66.5 (38-83) % Lymph % (Auto) 25.3 (25-47) % [place] % (Auto) 5.8 (0-7) % Eos % (Auto) 2.0 (0-6) % Baso % (Auto) 0.4 (0-2) % Absolute Neuts (auto) 9.1 H (1.5-7.7) 10^3/ul Absolute Lymphs (auto) 3.5 (1.0-4.8) 10^3/ul Absolute Monos (auto) 0.8 (0-0.8) 10^3/ul Absolute Eos (auto) 0.3 (0-0.6) 10^3/ul Absolute Basos (auto) 0.1 (0-0.2) 10^3/ul Absolute Nucleated RBC 0 10^3/ul Nucleated RBC % 0.1 Sodium 139 (139-145) mmol/L Potassium 3.7 (3.5-5.0) mmol/L Chloride 103 (101-111) mmol/L Carbon Dioxide 29 (22-32) mmol/L Anion Gap 7 (2-11) mmol/L BUN 12 (6-24) mg/dL Creatinine 0.70 (0.67-1.17) mg/dL Est GFR ( Amer) 169.2 (>60) Est GFR (Non-Af Amer) 131.5 (>60) BUN/Creatinine Ratio 17.1 (8-20) Glucose 99 (70-100) mg/dL Calcium 9.3 (8.6-10.3) mg/dL Total Bilirubin 0.30 (0.2-1.0) mg/dL AST 16 (13-39) U/L ALT 34 (7-52) U/L Alkaline Phosphatase 93 (34-104) U/L Total Protein 7.0 (6.4-8.9) g/dL Albumin 4.1 (3.2-5.2) g/dL Globulin 2.9 (2-4) g/dL Albumin/Globulin Ratio 1.4 (1-3) Lipase 13 (11.0-82.0) U/L Result Diagrams: 07/26/17 22:46 07/26/17 22:46 Lab Statement: Any lab studies that have been ordered have been reviewed, and results considered in the medical decision making process. Naus/Vom/Diarrhea Course/Dx - Course Course Of Treatment: Intense nausea vomiting 1 hour, with associated dizziness lightheadedness. Denies fever, cough, sore throat, CP, SOB, diarrhea, abdominal pain, change in urinary BM. Medical history is PTSD, anxiety, chronic low back pain, chronic right knee pain. Denies EtOH, admits to medical marijuana. Vital signs within normal limits. Labs unremarkable. Nausea controlled with Zofran. Patient passed by mouth challenge, had a jenelle wilner without regurgitation. States feeling better. We'll give prescription for Zofran, follow up with primary care - Differential Dx/Diagnosis Provider Diagnoses: Nausea vomiting Discharge - Sign-Out/Discharge Documenting (check all that apply): Discharge/Admit/Transfer - Discharge Plan Condition: Stable Disposition: HOME Patient Education Materials: Acute Nausea and Vomiting (ED) Referrals: Noe Meyer MD [Primary Care Provider] - Additional Instructions: Follow-up with primary care. Return to the ED for any new or worsening symptoms - Billing Disposition and Condition Condition: STABLE Disposition: HOME
[2017-07-27] MEDS ORDERED: Ondansetron ODT TAB* 4 MG PO ONE (01:32)
[2017-07-27 01:39] VITALS: BP 120/81
== END 2017-07-27 01:39 | disposition home or self-care (01) ==
LOC: ED 21:25
DX: R42 Dizziness and giddiness (principal); Z87.891 Personal history of nicotine dependence; R11.2 Nausea with vomiting, unspecified
CPT/HCPCS: 36415; 80053; 83690; 85025; 99283; A9270-GY

== ENCOUNTER 2017-09-28 14:30 | Emergency (ER) | payer OTHER ==
--- OUTSIDE RECORDS SUMMARY | 2017-09-28 14:37 | XMS REPORT ---
:1985 External Reference #:[id number] Author Organization [facility] Address [address] [place] [address] Phone [phone] Care Team Providers Name Role Phone Noe Meyer MD Care Team Information Incinerator Attendant Unavailable Noe Meyer MD Primary Care Physician Unavailable Payers Type Date Identification Numbers Payment Provider Subscriber Medicaid Effective: Policy Number: [id number] [facility] Romain Jarvis 2016 PayID: [id number] [place] [id number] Health Maintenance Effective: Policy Number: [facility] Romain Fortune [facility] [place] (O) 03/08/2016 [id number] [place] Primo Expires: 06/05/2016 PayID: [id number] Corporate Claims Dept [address] [place] [id number] Problems Date Description Provider Status Onset: 07/22/2016 [...] Form Strength Qnty SIG Indications Ordering Provider Zithromax 09/07/ Active Tablets 250mg 1tabs 2 by mouth J02.9 [place] 2018 every day Darline, today , [employer] TE[employer]ER then 1 by mouth every day times 4 Prednisone 09/07/ Active Tablets 5mg 78tabs 12 by mouth R06.2 Cheri 2017 today, Darline, decrease by TMH TEACHER 1 every day until gone Sumatriptan 07/17/ Active Tablets 100mg take 03/09 Unknown Succinate 2017 tablet by mouth at onset of migraine, may repeat in 2 hours Ventolin HFA 05/02/ Active Aerosol 108(90Base 18unit inhale 2 J06.9 Noe Love 2017 ) mcg/Act s puffs by Breiman, mouth every M.D. 4 to 6 hours as needed for shortness of breath Hydrocodone-A 04/03/ Active Tablets 10-325mg 90tabs 1 pill R51 Noe Love cetaminophen 2017 three times Breiman, a day as M.D. needed pain Nebulizer 12/20/ Active Kit 1units dx: asthma J20.9 Clementina Ruiz Kit/Tubing/Mo 2014 nash Camacho PACK MASTER Albuterol 12/20/ Active Nebulizer (2.5mg/3ML 75ml 1 vial via J20.9 Cheri Sulfate 2014 ) 0.083% nebulizer Darline, every 4 TMH TEACHER hours as needed J06.9 Valium Active Tablets 5mg 1 bid Unknown Gabapentin Active Capsules 300mg take 1 cap Unknown tid Azithromycin 07/14/2017 - Hx Tablets 250mg 6tab 2 tabs J45. Noe Gutierrez 09/01/2017 s today, then 21 Pj, 1 tab daily for next 4 days Qvar Redihaler 07/14/2017 - Hx Aerosol 80mcg/A 10.6 one puff J45. Noe Gutierrez 09/01/2017 [address] 00gm bid. 21 MD Pj Prednisone 05/19/2017 - Hx Tablets 5mg 14ta 4 tabs R21 Dahiana Kemp 07/14/2017 bs today, 4 Meyers, PACK MASTER tabs tomorrow, 3 tabs day 3, 2 tabs day 4, 1 tab day 5. Nystatin-Triamcin 05/19/2017 - Hx Cream [id number]- 60gm aply to R21 Dahiana Kemp olone 07/14/2017 0.1Unit affected Meyers, PACK MASTER /GM-% area 2-3 times a day until clear Prednisone 03/25/2017 - Hx Tablets 20mg 8tab take 2 by R06. Clementina Ruiz 04/14/2017 s mouth as one 2 Doug, dose daily PACK MASTER until gone Zithromax 03/25/2017 - Hx Tablets 250mg 6tab take two by J06. Clementina Ruiz 04/14/2017 s mouth as 9 Doug, first dose, PACK MASTER then take one by mouth daily until gone Medrol 09/30/2016 - Hx TBPK 4mg 1uni use as Noe Love 03/24/2017 jennifer Meyer M.D. Azithromycin 08/10/2016 - Hx Tablets 250mg 6tab take 2 H61. Latonia 09/30/2016 s tablets by 23 Darnell, mouth today [employer] TE[employer] then take 1 tablet daily for next 4 days J06.9 Note For Work 08/10/2016 - Hx romain Love 04/14/2017 cannot work Mitch, for at least M.D. three weeks Work Excuse 05/21/2016 - Hx for medical MiguelinaRhettCharis Love 08/10/2016 reasons romain Huffman is M.D. unable to do any work for at least 3more months Azithromycin 05/01/2016 - Hx Tablets 250mg 12tabs take 2 J06. Latonia 05/13/2016 tablets by 9 Darnell, mouth x 3d TMH TEACHER then take 1 tablet daily for next 6 days Mask For Use With 05/01/2016 - Hx 2units use up to J06. Latonia Nebulizer 08/09/2016 three times a 9 Darnell, day for TMH TEACHER cough/wheeze, dx: asthma lifelong Nystatin-Triamcin 04/03/2016 - Hx Cream [id number] 60gm aply to R21 Latonia olone 09/30/2016 -0.1Un affected area Darnell, it/GM- 2-3 times a TMH TEACHER % day until clear Relpax 04/03/2016 - Hx Tablets 40mg samples 1 at the R51 Latonia 04/24/2016 onset of Darnell, migraine [employer] TEACHER Work Excuse 02/24/2016 - Hx for medical Noe Love 04/03/2016 reasons romain Meyer is M.D. unable to do any work for at least one mth Sumatriptan 02/23/2016 - Hx Tablets 50mg 9tabs take 1 tablet Anahi L. Succinate 04/13/2016 by mouth at Cindy, onset of M.DCharis headache - repeat in 2 hours Lotrisone 02/10/2016 - Hx Cream 1-0.05 30gm use on skin Noe Love 04/03/2016 % twice a day Jia Meyer Work Excuse 02/10/2016 - Hx unable to do Noe Love 04/03/2016 snap job [employer] due to M.D. his physical and mental limitations Proair HFA 01/07/2016 - Hx Aerosol 108(90 8.5units Inhale 2 Noe Kate 05/02/2016 Base) Puffs By kiana Meyer/Ac Mouth Every 4 M.D. t Hours as Needed For Asthma/Shortn ess Of Breath Physical Therapy 12/30/2015 - Hx treatment and Noe Love 04/13/2016 evaluation Breiman, low back pain M.D. Zithromax Z-Darell 12/06/2015 - Hx Tablets 250mg 1Pack as directed Noe Love 12/30/2015 Jia Meyer Proair HFA 04/04/2015 - Hx Aerosol 108(90 8.500gm 2 puffs every R05 Noe Love 12/30/2015 Base) 4 hours as Breiman, mcg/Ac needed for M.D. t asthma/sob Cheratussin ac 04/04/2015 - Hx Solution 100-10 100ml 5 milliliters R05 Cheri 08/30/2015 mg/5ML by mouth Darline, every 12 TMH TEACHER hours as needed cough Clobetasol 03/18/2015 - Hx Ointment 0.05% [facility] 08/30/2015 affected Breiman, area(s) two M.D. times daily as needed Saline 12/21/2014 - Hx [facility]2015 nebulizer as sunil Meyer. M.D. Azithromycin 12/20/2014 - Hx Tablets 250mg 6tabs 2 tabs today; J20. Janet 12/25/2014 then one tab 9 Demetria, every day x 4 Afnp-C more days Physical Therapy 08/07/2014 - Hx treatment and Noe Love 09/24/2014 evaluation Breiman, low back pain M.D. with water therapy Doxycycline 06/21/2014 - Hx Capsules 100mg 2caps 2 by mouth x E906 Janet Hyclate 06/22/2014 one dose .4 Demetria, Afnp-C Hydrocodone-Aceta 12/04/2013 - Hx Tablets 5-325m 60tabs 1 pill twice Latonia minophen 04/03/2016 g a day dt call Darnell, LONG Proventil HFA 04/26/2013 - Hx Aerosol 108(90 8.5units Inhale Two Noe Love 08/30/2015 Base) Puffs By Breiman, mcg/Ac Mouth Every 4 M.D. t To 6 Hours as Needed For Shortness Of Breath Ventolin HFA 11/30/2012 - Hx Aerosol 108(90 1units 2 puffs Noe Love 04/26/2013 Base) qd-qid Breimaja, mcg/Ac Jia t Azithromycin 11/30/2012 - Hx Tablets 250mg 6tabs 2 po today 465. Noe Love 05/22/2013 and 1 po x 4 9 Breimaja, days Christ.D. Xanax 10/02/2012 - Hx Tablets 0.5mg 60tabs use bid prn Noe Love 04/18/2014 anxiety dt Jia Meyer Nystatin/Triamcin 08/15/2012 - Hx Cream 152996 60mg apply thin 112. Latonia olone 11/30/2012 -0.1Un layer tid 89 Darnell, it/GM- TMH TEACHER % Proventil HFA 05/17/2012 - Hx Aerosol 108(90 1units two puffs 493. Johnnie Gutierrez 11/30/2012 Base) once every 90 Midura, mcg/Ac 4-6 hours prn Jia t SOB Zofran Odt 09/21/2011 - Hx Tablets 4mg 10tabs 1 po q 4-6 Noe Love 03/21/2012 Dispers hours prn Mitch nausea Christ.Carley Vicodin 09/21/2011 - Hx Tablets 10/325 30tabs 1 po q4hrs Noe Love 03/21/2012 prja Meyer M.D. Physical Therapy 07/06/2011 - Hx treatment and Johnnie T. 08/25/2011 evaluation Midura, bilateral M.D. knee pain Zofran 05/08/2011 - Hx Tablets 8mg 12tabs 1 tablet po Chica Howe 08/25/2011 q8h as needed Msisy, nausea/vomiti Jia ng Diazepam 05/08/2011 - Hx Tablets 5mg 4tabs 1 tab po x 1 Chica DCharis 08/25/2011 before dental alice Louis M.D. may repeat in 1/2 hour as needed anxiety Lexapro 12/04/2009 - Hx Tablets 10mg 28tabs 1 po qd 311 Janet 03/04/2010 Mariel Augustin Neurontin 12/04/2009 - Hx Capsules 100mg 1 po bid x 2 311 Family 03/04/2010 days, then Medicine tid [facility] Lomotil 11/21/2008 - Hx Tablets 2.5mg 25tabs 1 po after Cheri 12/04/2009 loose bm, rip Nair, repeat if M.D. needed after 2 hours Azithromycin 09/21/2007 - Hx Tablets 250mg 6tabs 2 po today 465. Noe Love 04/15/2011 and 1 po x 4 9 Breiman, days M.D. Albuterol HFA 09/21/2007 - Hx Aerosol 90mcg/ One two puffs 493. Kahn A. 09/21/2007 Act every 4-6 90 Jia Savage hours as needed Proventil 09/21/2007 - Hx Aerosol 90mcg/ 1units two puffs 493. Noe Love 05/17/2012 Act once every 90 Breiman, 4-6 hours prn M.D. SOB Adderall XR 05/20/2005 - Hx Capsules 20mg 30caps 1 PO qd Johnnie T. 05/10/2007 Jia Perry Ketek 11/29/2004 - Hx Tablets 2Dose 20tabs 10 days Myron Love 12/09/2004 Gumaro Johnson M.D. Prednisone 11/29/2004 - Hx Solution 20mg 5units 20MG PO qd Myron J. 12/04/2004 X'S 5 Days Jia Johnson Cefzil 04/10/2004 - Hx 500mg 20units 1 PO bid Johnnie Gutierrez 11/29/2004 Jia Perry Zyprexa 04/10/2004 - Hx 5 20units 1 q hs prn Johnnie Gutierrez 05/20/2005 for sleep Jia Perry Naproxen 03/10/2004 - Hx 500mg 60units 1 bid with Johnnie Brenda 05/20/2005 food prn pain Jia Perry Levaquin 02/29/2004 - Hx 500mg 10units 1 qd Noe Love 03/10/2004 Jia Meyer Lexapro 02/29/2004 - Hx 10mg 30units 1 po qd Johnnie Gutierrez 05/20/2005 Jia Perry School Excuse 01/07/2004 - Hx unable to Johnnie TCharis 03/10/2004 attend school [place], 12/23-12/31 M.D. due to illness. Levaquin 12/24/2003 - Hx 500mg 10units 1 qd Johnnie TCharis 03/10/2004 Jia Perry Nebulizer 12/24/2003 - Hx 1units Compressor, Johnnie T. 05/10/2007 Hand Held [place], Nebulizer MYesi With Tubing For Aerosol Treatments Albuterol 12/24/2003 - Hx 0.083% [id number] one unit dose Johnnie T. Solution 05/10/2007 q4h prn Jia Perry Advair Discus 12/17/2003 - Hx 100/50 I one Johnnie T. 05/10/2007 inhalation [place], twice daily M.D. Zithromax 12/17/2003 - Hx 250mg 6units 2 tabs day 1 Johnnie T. 12/24/2003 [place] 1 M.DCharis tab qd days 2 thru 5 Nettie-D 12/17/2003 - Hx 60mg 60units 1 po bid prn Johnnie TCharis 05/10/2007 for allergy [place], symptoms M.D. Wellbutrin SR 07/24/2003 - Hx 150mg 0units 1 po qam Family 12/17/2003 [facility] 07/24/2003 - Hx 10mg 12units qd Latonia 12/24/2003 LONG Patrick Zithromax 06/19/2003 - Hx 250mg 6units 2 tabs day 1 Janet 06/24/2003 Demetria, 1 Afnp-C tab qd days 2 thru 5 Scopolamine 05/23/2003 - Hx 4units 0NE q3RD day Sergei Kilpatrick 07/24/2003 Jia Adame Biaxin XL 05/21/2003 - Hx 500mg 20units 2 po qd Rick A. 05/31/2003 Jia Stewart Entex-LA (Without 03/06/2003 - Hx 30units 1 po bid prn Sergei Melton) 05/21/2003 Jia Adame Congestion Physical Therapy 09/05/2002 - Hx Treatment And Sergei Kilpatrick 11/30/2002 Evaluation Jia Adame For Knee Pain Entex-LA (Without 08/03/2002 - Hx 60units 1 PO bid prn Sergei S. Ppa) 11/30/2002 Jia Adame Zithromax 07/04/2002 - Hx 250mg 6units 2 Tabs Day 1 Janet 07/09/2002 Demetria, 1 Afnp-C Tab qd Days 2 Thru 5 Flovent 07/04/2002 - Hx 44mcg 1units 2 Puffs bid Janet 11/30/2002 Demetria, Alynp-C Ultracet 06/01/2002 - Hx 37.5/3 50units 1 PO qid prn Sergei S. 05/21/2003 25 Pain Jia Adame Wellbutrin-SR 04/19/2002 [...] 250mg 6units 2 Tabs Day 1 Sergei SCharis 02/23/2002 Jia Adame 1 Tab qd Days 2 Thru 5 Claritin 02/06/2002 - Hx 10mg 100units 1 qd Rick A. 04/19/2002 Jia Stewart School Excuse 12/29/2001 - Hx Take Rick ACharis 12/30/2001 Wellbutrin On Field Vinicius Stewart M.D. In The Morning Wellbutrin-SR 12/15/2001 - Hx 100mg 60units 1QDx3D,Then Rick A. 03/21/2002 bid Jia Stewart Proventil HFA 12/02/2001 - Hx 2units 2 puffs q6h Myron J. 05/10/2007 Jia Johnson Clarinex 11/10/2001 - Hx 5mg 30units 1 qd Rick A. 12/15/2001 Jia Stewart Adderall 08/08/2001 - Hx 20mg 30units 1 po qd Rick Sanchez. 04/19/2002 Jia Stewart Albuterol Inhaler 08/08/2001 - Hx 2units Q 4HR prn Rick A. 07/04/2002 Jia Stewart Vicodin - Hx Tablets Unknown 08/25/2011 Diazepam - Hx Tablets 5mg 5tabs 1/2 - 1 po Unknown 08/15/2012 bid or [...] Code Status Date Vaccine Reaction Lot # [id number] Given 04/13/2016 Influenza Vac, Quadrivalent, [id number] [place] [id number] Given 11/23/2011 Tdap Tetanus, W Pertussis no reaction noted [id number] Given 01/07/2005 DO Not Use Split Influenza Virus Vaccine 64584 Given 01/07/2005 DO Not Use Split Influenza Virus Vaccine 77226 Given 02/11/2004 Influenza Virus Vaccine, Live For Intranasla Use 51684 Given 11/30/2002 DO Not Use Split Influenza Virus Vaccine 07777 Given 12/15/2001 Influenza Immunization 07660 Given 12/15/2001 DO Not Use Split Influenza Virus Vaccine 54253 Given 11/15/2001 DTaP Immunization Vital Signs Date Vital Result Comment 09/07/2017 BP Systolic 138 mmHg BP Diastolic 110 mmHg Heart Rate 80 /min Body Temperature 98.1 F Height 74 inches 6'2" Weight 256.00 lb BMI (Body Mass Index) 32.9 kg/m2 09/01/2017 BP Systolic 116 mmHg BP Diastolic 72 mmHg Heart Rate 84 /min Body Temperature 97.9 F Respiratory Rate 16 /min Height 74 inches 6'2" Weight 256.25 lb BMI (Body Mass Index) 32.9 kg/m2 07/14/2017 BP Systolic 118 mmHg BP Diastolic [...] Test Date Test Result H/L Range Note CBC Auto Diff 07/26/2017 White Blood Count 13.7 10^3/uL High 3.5-10.8 Red Blood Count 4.86 10^6/uL 4.0-5.4 Hemoglobin 14.6 g/dL 14.0-18.0 Hematocrit 43 % 42-52 Mean Corpuscular Volume 89 fL 80-94 Mean Corpuscular Hemoglobin 30 pg 27-31 Mean Corpuscular HGB Conc 34 g/dL 31-36 Red Cell Distribution Width 14 % 10.5-15 Platelet Count 300 10^3/uL 150-450 Mean Platelet Volume 7.7 um3 7.4-10.4 Abs Neutrophils 9.1 10^3/uL High 1.5-7.7 Abs Lymphocytes 3.5 10^3/uL 1.0-4.8 Abs Monocytes 0.8 10^3/uL 0-0.8 Abs Eosinophils 0.3 10^3/uL 0-0.6 Abs Basophils 0.1 10^3/uL 0-0.2 Abs Nucleated RBC 0 10^3/uL Granulocyte % 66.5 % 38-83 Lymphocyte % 25.3 % 25-47 Monocyte % 5.8 % 0-7 Eosinophil % 2.0 % 0-6 Basophil % 0.4 % 0-2 Nucleated Red Blood Cells % 0.1 Comp Metabolic Panel 07/26/2017 Sodium 139 mmol/L 139-145 Potassium 3.7 mmol/L 3.5-5.0 Chloride 103 mmol/L 101-111 Co2 Carbon Dioxide 29 mmol/L 22-32 Anion Gap 7 mmol/L 2-11 Glucose 99 mg/dL 70-100 Blood Urea Nitrogen 12 mg/dL 6-24 Creatinine 0.70 mg/dL 0.67-1.17 BUN/Creatinine Ratio 17.1 8-20 Calcium 9.3 mg/dL 8.6-10.3 Total Protein 7.0 g/dL 6.4-8.9 Albumin 4.1 g/dL 3.2-5.2 Globulin 2.9 g/dL 2-4 Albumin/Globulin Ratio 1.4 1-3 Total Bilirubin 0.30 mg/dL 0.2-1.0 Alkaline Phosphatase 93 U/L 34-104 Alt 34 U/L 7-52 Ast 16 U/L 13-39 Egfr Non- 131.5 >60 Egfr 169.2 >60 1 Laboratory test finding 07/26/2017 Lipase 13 U/L 11.0-82.0 Laboratory test finding 07/14/2017 Quickstrep NEG Negative Influenza A&B-fma 03/25/2017 Influenza A neg Influenza [...] Egfr Non- 138.4 >60 Egfr 177.9 >60 2 Laboratory test finding 01/25/2017 Troponin I 0.00 [...] West 08/07/2014 Lyme IgG/IgM Ab <0.91 ISR 0.00-0.90 3 Lyme Disease Ab, Quant, IgM <0.80 index 0.00-0.79 4 Surgical Pathology 05/01/2013 S RUN DATE: 05/02/ <SEE 5 NOTE> Clotest 05/01/2013 Clotest (SEE NOTE) 6 Laboratory test finding 11/28/2010 Quickstrep negative Negative Throat - Beta Strep Fma NEG@48HRS Comp Metabolic Panel 11/26/2010 Sodium 139 mmol/L 135-145 7 Potassium 4.4 mmol/L 3.5-5.0 7 Chloride 104 mmol/L 101-111 7 Co2 (Carbon Dioxide) 27.0 mmol/L 22-32 7 Anion Gap 8.0 mmol/L 2-11 7, 8 Glucose 88 mg/dL 70-100 7 BUN 11 mg/dL 6-24 7 Creatinine 0.6 mg/dL 0.50-1.40 7 One Over Creatinine 1.66 7 BUN/Creatinine Ratio 18.3 8-20 7 Calcium 9.7 mg/dL 8.1-9.9 7 Total Protein 7.0 GM/DL 6.2-8.1 7 Albumin 4.5 GM/DL 3.6-5.4 7 Globulin 2.5 GM/DL 2-4 7 Albumin/Globulin Ratio 1.8 1-3 7 Bilirubin Total 1.0 mg/dL 0.4-1.5 7, 9 Alkaline Phosphatase 77 U/L 39-117 7 Alt (SGPT) 22 U/L 17-63 7 Ast (Sgot) 18 U/L 12-42 7 eGFR Non- 165.5 > 60 7 eGFR 212.9 > 60 7, 10 Liver Function Panel 11/26/2010 Bilirubin Direct 0.2 mg/dL 0.1-0.5 7 Indirect Bilirubin 0.8 mg/dL 0.3-1.0 7, 11 CBC Auto Diff 07/22/2010 White Blood Count [...] Color YELLOW Yellow Appearance-Urine CLEAR Clear Specific [place]-Ur 1.005 Low 1.010-1.030 Esterase-Urine TRACE Negative Nitrite NEGATIVE Negative Dxqqfbdqcvpc-Xx-NIE NEGATIVE Negative Protein-Urine NEGATIVE Negative PH-Urine 6.5 5-9 Blood-Urine NEGATIVE Negative Ketones-Urine NEGATIVE Negative Bilirubin-Ur NEGATIVE Negative Glucose-Urine NEGATIVE Negative WBC-Urine 0-2 0-5 RBC-Urine 0-2 0-2 Epith Cells-Ur RARE None Comp Metabolic Panel 07/22/2010 Sodium 140 mmol/L 135-145 Potassium 3.6 mmol/L 3.5-5.0 Chloride 104 mmol/L 101-111 Co2 (Carbon Dioxide) 28.0 mmol/L 22-32 Anion Gap 8.0 mmol/L 2-11 12 Glucose 86 mg/dL 70-100 BUN 9 mg/dL 6-24 Creatinine 0.50 mg/dL 0.50-1.40 One Over Creatinine 2.00 BUN/Creatinine Ratio 18.0 8-20 Calcium 9.5 mg/dL 8.1-9.9 Total Protein 6.9 GM/DL 6.2-8.1 Albumin 4.1 GM/DL 3.6-5.4 Globulin 2.8 GM/DL 2-4 Albumin/Globulin Ratio 1.5 1-3 Bilirubin Total 0.7 mg/dL 0.4-1.5 13 Alkaline Phosphatase 69 U/L 39-117 Alt (SGPT) 17 U/L 17-63 Ast (Sgot) 15 U/L 12-42 eGFR Non- 204.3 > 60 eGFR 262.7 > 60 14 Laboratory test finding 07/22/2010 Amylase 44 U/L 20-120 15 Lipase 30 U/L 22-51 Drug Screen, Urine, CTX 05/11/2003 Amphetamines NEGATIVE Negative Barbiturates NEGATIVE Negative Benzodiazepines * Negative 16 Cocaine NEGATIVE Negative Opiates NEGATIVE Negative Phencyclidine (PCP) NEGATIVE Negative Cannabis (THC) POSITIVE Negative 17 Drugs Of Abuse *@DSCN 18 Ethanol (Urine) <0.013 g/dL <.013 19 Drug Screen, Urine, CTX 02/15/2003 Amphetamines NEGATIVE Barbiturates NEGATIVE Benzodiazepines NEGATIVE Cocaine NEGATIVE Opiates NEGATIVE Phencyclidine (PCP) NEGATIVE Cannabis (THC) NEGATIVE Drugs Of Abuse *@DSCN 20 Ethanol (Urine) <0.013 g/dL <.013; 21 CBC Electronic (a) 12/11/2002 WBC 8.7 3.6-9.6 Lymphocytes 33.4 % 20.5 - 51.1 Monocytes 2.8 % 1.7-9.3 Granulocytes 63.8 % 42.2 - 75.2 Lymphocytes 2.9 10^3/uL 0.7 - 4.9 Monocytes 0.2 10^3/uL 0.1 - 0.9 Granulocytes 5.6 10^3/uL 1.5 - 7.2 RBC 5.27 3.90-5.70 Hemoglobin (Fma/CMC/CTX) 15.6 g/dL 12.1 - 17.2 Hematocrit (Fma/CMC/CTX) 45.5 % 36.1 - 50.3 Mean Corpuscular Vol 86.3 82.2-97.4 Mean Corpuscular Hemaglobin 29.7 27.6-33.3 Mean Corpuscular Hemo Concen 34.4 33.0-34.8 RDW 12.9 11.6-13.7 Platelets 344. 10^3/ul 150-400 Mean Platelet Volume 7.8 7.4-10.4 Free T4/TSH (Fma/CMC/Centrex) 12/11/2002 TSH 2.36 uIU/ml 0.5-6.0 Free T4 0.95 ng/dL 0.75-1.54 Laboratory test finding 12/11/2002 Hemoglobin A1c (F/C/CTX) 5.2% % 4.1- 5.7 Comp Metabolic (Fma) 12/11/2002 Glucose, Serum (Fma/CMC/CTX) 110 mg/dL 70 -118 BUN (Fma/CMC/Centrex) 11 mg/dL 6-26 Creatinine (Fma/CMC/CTX) 0.8 mg/dL 0.6-1.4 BUN/Creatinin Ratio 14.4 8.0-36 Sodium 141 134-149 Potassium 4.8 3.6-5.5 Chloride 101 mEq/L 94-112 Co2 28 21-32 Calcium (Fma/CMC/Centrex) 9.6 mg/dL 8.6-10.0 Total Protein 7.4 g/dL [...] NEGATIVE Negative Ethanol (Urine) <0.013 g/dL <.013 22 Drug Screen, Urine, CTX 11/21/2002 Amphetamines NEGATIVE Barbiturates NEGATIVE Benzodiazepines NEGATIVE Cocaine NEGATIVE Opiates NEGATIVE Phencyclidine (PCP) NEGATIVE Cannabis (THC) NEGATIVE Drugs Of Abuse *@[facility] Ethanol (Urine) <0.013 g/dL <.013; 24 Drug Screen, Urine, CTX 10/02/2002 Amphetamines NEGATIVE Negative Barbiturates NEGATIVE Negative Benzodiazepines NEGATIVE Negative Cocaine NEGATIVE Negative Opiates NEGATIVE Negative Phencyclidine (PCP) NEGATIVE Negative Cannabis (THC) POSITIVE Negative 25 Ethanol (Urine) <0.013 g/dL <.013 26 Laboratory test finding 10/02/2002 Comments see detail 27 Drug Screen, Urine, CTX 08/03/2002 Amphetamines POSITIVE 28 Barbiturates NEGATIVE Benzodiazepines NEGATIVE Cocaine NEGATIVE Opiates NEGATIVE Phencyclidine (PCP) NEGATIVE Cannabis (THC) POSITIVE 29 Ethanol (Urine) <0.013 g/dL <.013; 30 Laboratory test finding 04/20/2002 Throat Culture NEGATIVE [...] " PCP Urine Screen " Amphetamines POSITIVE 31 Barbiturates NEGATIVE Benzodiazepines NEGATIVE Cocaine NEGATIVE Opiates NEGATIVE Phencyclidine (PCP) NEGATIVE Cannabis (THC) POSITIVE Ethanol (Urine) <0.013 g/dL <.013 32 Laboratory test finding 12/12/2001 Comments SEE IMAGE [...] 5 Kidney failure <15 (or dialysis) 2 Because ethnic data is not always readily [...] 15-29 5 Kidney failure <15 (or dialysis) 3 Negative <0.91 Equivocal 0.91 - 1.09 Positive >1.09 4 Negative <0.80 Equivocal 0.80 - 1.19 Positive >1.19 IgM levels may peak at 3-6 weeks post infection, then gradually decline. 5 RUN DATE: 05/02/13 [facility] LAB LIVE PAGE 1 RUN TIME: [address] [place] [id number] Specimen Inquiry Name: JARVISROMAIN : [address]: Boyd Quan MD Acct: [id number] Unit: [id number] AGE: 28 Location: ENDO Re05/01/13 SEX: M Status: REG REF SPEC: [id number] [place]: 05/01/13- SUBM DR: Boyd Quan MD REQ: [id number] RECD: 05/01/13 STATUS: SHIVA APPLE DR: Noe [...] Signed (signature on file) Nikhil Mccoy MD 141 END OF REPORT * ML=Testing performed at Main Lab DEPARTMENT OF PATHOLOGY, [address] [place] [address] Nikhil Mccoy M.D. Director [facility] Permit #[id number] RUN DATE: 05/02/13 [facility] LAB LIVE PAGE 1 RUN TIME: [address] [place] [id number] Specimen Inquiry Name: ROMAIN JARVIS : [address]: Boyd Quan MD Acct: [id number] Unit: [id number] AGE: 28 Location: ENDO Re05/01/13 SEX: M Status: REG REF SPEC: [id number] [place]: 05/01/13-[address] [facility] [address]: Boyd Quan MD REQ: [id number] RECD: 05/01/13-1412 STATUS: YOMI APPLE DR: Noe Meyer MD _ SOURCE: GAS ANTRUM SPDESC: ORDERED: Clotest Procedure Result Verified Site Clotest Final 05/02/13- 0720 ML Clotest Negative END OF REPORT * ML=Testing performed at Main Lab DEPARTMENT OF PATHOLOGY, [address] [place] [place] [address] Nikhil Mccoy M.D. Director [facility] Permit #[id number] [facility] 12/03/10 8 Anion gap measurement may be of limited value in the presence of any alkalosis, especially in a combined acid base disorder. . 9 A metabolite of Naproxen, O-desmethylnaproxen, has been shown to interfere with the Jendrassik-Jayne method for measuring total bilirubin. Samples from patients who have taken Naproxen have shown spurious elevation in total bilirubin levels. 10 Because ethnic data is not always readily [...] 15-29 5 Kidney failure <15 (or dialysis) 11 Please note updated reference range, effective 09/26/09 12 Anion gap measurement may be of limited value in the presence of any alkalosis, especially in a combined acid base disorder. . 13 A metabolite of Naproxen, O-desmethylnaproxen, has been shown to interfere with the Jendrassik-Jayne method for measuring total bilirubin. Samples from patients who have taken Naproxen have shown spurious elevation in total bilirubin levels. 14 Because ethnic data is not always readily [...] 15-29 5 Kidney failure <15 (or dialysis) 15 PLEASE NOTE NEW REFERENCE RANGE. 16 SENT TO REFERENCE LAB BENZODIAZEPINE CONFIRMATION, 05/15/03. SCREEN CUTOFF BENZODIAZEPINE NEGATIVE. 300 NG/ML 17 sent for confirmation Cannabinoid Confirmation 05/15/03. SCREEN CUTOFF CANNABINOID POSITIVE CARBOXY THC GC/MS CONF. 132 NG/ML 15 18 METHODOLOGY FOR THE ABOVE TEST(S) IS FOR [...] ALCOHOL 13 mg/dL TRICYCLIC ANTIDEPRESSANTS SERUM 50 19 Minimum Detectable Level:13 mg/dl or 0.013% . FOR MEDICAL PURPOSES ONLY. . 20 METHODOLOGY FOR THE ABOVE TEST(S) IS FOR [...] ALCOHOL 13 mg/dL TRICYCLIC ANTIDEPRESSANTS SERUM 50 21 Minimum Detectable Level:13 mg/dl or 0.013% . FOR MEDICAL PURPOSES ONLY. . 22 Minimum Detectable Level:13 mg/dl or 0.013% . FOR MEDICAL PURPOSES ONLY. . 23 METHODOLOGY FOR THE ABOVE TEST(S) IS FOR [...] ALCOHOL 13 mg/dL TRICYCLIC ANTIDEPRESSANTS SERUM 50 24 Minimum Detectable Level:13 mg/dl or 0.013% . FOR MEDICAL PURPOSES ONLY. . 25 *sent out for confirmation 26 Minimum Detectable Level:13 mg/dl or 0.013% . FOR MEDICAL PURPOSES ONLY. . 27 Cannabinoid confirmation, Ur. ng/ml Result Screen Cutoff Confirm Cutoff Cannabinoid Positive Carboxy THC GC/MS conf. 26 15 28 sent for confirmation 29 sent for confirmation 30 Minimum Detectable Level:13 mg/dl or 0.013% . FOR MEDICAL PURPOSES ONLY. . 31 POSITIVE TESTS SENT FOR CONFIRMATION 32 Minimum Detectable Level:13 mg/dl or 0.013% . FOR MEDICAL PURPOSES ONLY. . Procedures Date CPT Code Description Status 08/10/2016 12246 Nebulizer Treatment Completed 04/03/2016 22689 Electrocardiogram Complete Completed Encounters Type Date Location Provider CPT E/M Dx Office Visit 09/01/2017 1:40p Main Office Noe Meyer M.D. [id number] J45.21 Office Visit 07/14/2017 2:10p Main Office Noe [place] [address] J02.9 J45.21 Office Visit 05/19/2017 10:00a [place] [address] R21 Office Visit 04/15/2017 8:00a Northeast Office Noe Meyer M.D. 45327 M54.5 M25.561 R51 Office Visit 03/25/2017 1:30p [place] [address] R06.2 J06.9 Office Visit 02/03/2017 2:20p Main Office Noe Meyer M.D. 64141 R51 Office Visit 10/16/2016 9:10a Main Office Noe Meyer M.D. 83882 M54.5 M25.561 Office Visit 09/30/2016 2:10p Main Office Noe Meyer M.D. 28922 M54.5 Office Visit 08/12/2016 2:40p Main Office Noe Meyer M.D. 25688 M54.5 M25.561 M25.562 Office Visit 08/10/2016 1:45p Main Office Latonia Patrick, [facility] 12382 J06.9 R06.2 Office Visit 07/22/2016 2:10p Main Office Noe Meyer M.D. 88368 M54.5 M25.561 F43.10 Office Visit 05/01/2016 11:00a Main Office Latonia Patrick, [facility] 44959 J06.9 Office Visit 04/13/2016 7:00p Main Office Latonia Patrick, [facility] 49554 S30.810A Z23 Office Visit 04/03/2016 1:30p Main Office Latonia Patrick, [facility] 13302 R21 R51 R07.89 Office Visit 03/18/2016 2:20p Main Office Noe Meyer M.D. 07316 R51 M54.5 F43.10 Office Visit 02/24/2016 1:40p Main Office Noe Meyer M.D. 49127 R51 Office Visit 02/18/2016 1:00p Northeast Office Noe Meyer M.D. 48816 M54.5 F43.10 Office Visit 02/10/2016 11:00a Main Office Noe Meyer M.D. 44169 M54.5 F43.10 Office Visit 12/30/2015 1:40p Main Office Noe Meyer M.D. 97585 M54.5 F43.10 R29.898 Z02.9 Office Visit 08/30/2015 1:40p Main Office Noe Meyer M.D. 32836 M54.5 F43.10 R29.898 Office Visit 04/04/2015 9:00a Main Office Cheri Darline, [facility] 88850 R05 H65.03 Office Visit 03/18/2015 3:40p Main Office Noe Meyer M.D. 06281 H65.03 R21 Office Visit 12/20/2014 10:30a Main Office Janet Augustin [facility] 95544 J20.9 J45.21 Office Visit 09/24/2014 3:20p Main Office Noe Meyer M.D. 99479 780.79 Office Visit 08/07/2014 4:10p Northeast Office Noe Meyer M.D. 21518 309.81 719.69 Office Visit 06/21/2014 3:15p Main Office Navin Lechuga- 41473 E906.4 911.4 Office Visit 04/18/2014 5:40p Main Office Noe Meyer M.D. 20879 309.81 Office Visit 12/04/2013 3:20p Main Office Noe Meyer M.D. 76746 724.5 592.0 Office Visit 05/22/2013 11:20a Main Office Noe Meyer M.D. 03229 724.5 729.5 Office Visit 11/30/2012 7:40p Main Office Noe Meyer M.D. 56748 461.0 382.00 Office Visit 09/23/2012 11:10a Main Office Johnnie Perry M.D. 62996 300.00 784.0 Office Visit 08/15/2012 7:30p Main Office Latonia Patrick [facility] 84901 112.89 Office Visit 03/21/2012 11:20a Main Office Noe Meyer M.D. 87881 300.00 Office Visit 09/21/2011 2:00p Main Office Noe Meyer M.D. 84943 784.0 Office Visit 08/25/2011 5:00p Main Office Johnnie Perry M.D. 17430 848.5 Office Visit 05/08/2011 8:20a Northeast Office Chica Louis 26220 784.0 Jia 307.54 924.3 309.81 300.00 Office Visit 04/15/2011 5:10p Main Office Noe Meyer M.D. 90321 525.9 Office Visit 12/03/2010 9:10a Main Office Noe Meyer M.D. 91469 466.0 Office Visit 11/28/2010 11:40a Main Office Ivis Pacheco M.D. 46636 465.9 305.1 Office Visit 03/04/2010 12:20p Main Office Johnnie Perry M.D. 90691 922.1 535.00 719.46 Office Visit 12/04/2009 3:00p Main Office Navin Lechuga-C 27879 311 Office Visit 07/03/2009 1:40p Main Office Noe Meyer M.D. 78662 493.92 Office Visit 11/21/2008 10:20a Main Office Cheri Nair M.D. 38828 558.9 Office Visit 09/21/2007 8:10a Main Office Femi Savage M.D. 86681 465.9 493.90 Office Visit 05/18/2007 2:20p Main Office Johnnie Perry M.D. 55863 520.6 525.8 Office Visit 05/10/2007 2:40p Northeast Office Noe Meyer M.D. 59674 520.6 Office Visit 05/20/2005 3:50p Main Office Johnnie Perry M.D. 65569 920 Office Visit 11/29/2004 10:20a Main Office Myron Johnson M.D. 55549 493.92 Office Visit 04/10/2004 1:50p Northeast Office Johnnie Perry M.D. 41108 461.9 300.00 Office Visit 03/26/2004 10:00a Main Office Johnnie Perry M.D. 33145 719.46 Office Visit 03/10/2004 5:20p Main Office Johnnie Perry M.D. 38521 719.46 477.8 493.90 Office Visit 02/29/2004 12:00p Main Office Noe Meyer M.D. 19517 473.9 311 Office Visit 01/07/2004 6:20p Main Office Johnnie Perry M.D. 90052 493.90 477.9 461.9 Office Visit 12/24/2003 6:10p Main Office Johnnie Perry M.D. 86960 461.1 493.90 Office Visit 12/17/2003 1:10p Main Office Johnnie Perry M.D. 49665 787.02 461.9 477.9 493.90 Office Visit 07/24/2003 1:00p Northeast Office Latonia PatrickPOLOP 03609 477.9 Office Visit 06/19/2003 7:45p Main Office Mariel Lechuga 65038 461.9 Office Visit 05/21/2003 7:10p Main Office Rick Stewart M.D. 69882 473.8 Office Visit 03/06/2003 4:00p Main Office Sergei Adame M.D. 45492 465.9 314.01 Office Visit 12/07/2002 7:00p Main Office Janeth Murguia LONG Pop-C 73771 784.0 780.79 Office Visit 11/30/2002 4:00p Main Office Sergei Adame M.D. 06495 314.01 493.90 V04.8 305.90 Office Visit 08/03/2002 2:00p Main Office Sergei Adame M.D. 73280 314.01 Office Visit 07/04/2002 6:15p Main Office Kellee LechugaC 76567 493.90 461.0 Office Visit 06/01/2002 6:20p Main Office Sergei Adame M.D. 22825 719.46 314.00 Office Visit 04/19/2002 6:15p Main Office Karen Shigerardo Rafaela 79304 314.00 465.9 784.1 Office Visit 03/15/2002 8:00a Main Office Rick Stewart M.D. 23039 719.46 Office Visit 02/17/2002 11:00a Main Office Sergei Adame M.D. 81833 461.1 Office Visit 02/13/2002 3:00p Main Office Rick Stewart M.D. 00981 304.90 312.9 Office Visit 12/15/2001 3:10p Northeast Office Rick Stewart M.D. 11292 Office Visit 11/10/2001 2:40p Main Office Rick Stewart M.D. 15206 Office Visit 08/08/2001 6:40p Main Office Rick Stewart M.D. 96617 Plan of Care 09/07/2017 - Cheri Darline, FNPJ02.9 Acute pharyngitis, unspecifiedNew Medication:Zithromax 250 mgR06.2 WheezingNew Medication:Prednisone 5 mgComments: Our best evidence indicates that most bronchitis infections are caused by viruses, NOT bacteriaThe reason antibiotics help is because they anti- inflammatoryPICK UP both meds, I would suggest you start with Prednisone and nebulizer and hold off on antibiotics if at all possibleYou've been sick one day ,give your immune system a chance to get over thisR05 CoughAllComments:~B_~U_ Medication Management~b_~u_ Patient Understands medications he 's taking? Yes No Are there Barriers to Adherence? Yes No Has the patient been asked about herbal supplements and therapies, and OTC meds? Yes No
--- OUTSIDE RECORDS SUMMARY | 2017-09-28 14:37 | XMS REPORT ---
:1985 External Reference #:[id number] Author Organization [facility] Address [address] [place] [address] Phone [phone] Care Team Providers Name Role Phone Noe Meyer MD Primary Care Physician Unavailable Payers Type Date Identification Numbers Payment Provider Subscriber Commercial Effective: Policy Number: [id number] [employer] Frank Tillman 2010 Medicaid PayID: [id number] [address] [address] [place] [address] Problems Date Description Provider Status Onset: 08/27/2014 Chondromalacia of patella Osorio Gill M.D. Active Onset: 09/27/2015 Lumbar radiculopathy Raffy Corona M.D. Active Onset: 07/16/2016 Migraine without aura, not refractory Demi Robb M.D. Active Family History Date Family Member(s) Problem(s) Comments General Cancer General Diabetes Social History Type Date Description Comments Lives With Girlfriend Occupation Currently Working Occupation [employer] ETOH Use Denies alcohol use Recreational Drug [...] Form Strength Qnty SIG Indications Ordering Provider Medrol 08/26 Active Tablets 4mg 21tab take as melchor /2017 louie Zuniga M.D. per dosepak instructio ns Sumatriptan 07/16 Active Tablets 100mg 12tab 1/2-1 tab G43.009 Christopher s by mouth Jia Zuniga as needed Hydrocodone-Ac Active Tablets 10-325mg 1 by mouth Unknown etaminophen /0000 every 4-6 hours prn. Valium Active Tablets 5mg 1-1 /2 as Unknown /0000 needed anxiety Proair HFA Active Aerosol 108(90Bas 2 puffs by Unknown /0000 e) mouth mcg/Act every 4 hours as needed Gaviscon Extra Active Suspension 254-237.5 as needed Unknown Strength /0000 mg/5ML with meals ( helps with nausea , heartburn ) Zyrtec Allergy Active Capsules 20mg one tab by Unknown /0000 mouth everyday Multi Adult Active Chewtabs 1 by mouth Unknown Gummies /0000 every day Aleve Active Capsules 220mg 1-2 by Unknown /0000 mouth twice a day as needed Prozac Active Capsules 20mg one by Unknown /0000 mouth twice a day on 08/26/17, states he is currently taking 60 MG daily Minipress Active Capsules 1mg at night Unknown /0000 as needed Gabapentin Active Capsules 600mg One tab Unknown /0000 twice daily Riboflavin Active Tablets 400mg 1 by mouth Christopher /0000 every day Jia Zuniga Hydromorphone Active Tablets 4mg Take One Unknown HCL /0000 Tablet By Mouth Every 6 Hours as Needed For Pain -- Maximum D Methocarbamol Active Tablets 500mg Take 1 Unknown /0000 Tablet By Mouth Four Times Daily as Needed For Pain For 5 Days Topiramate 07/30 Hx Tablets 25mg 120ta 2-4 tabs G43.009 Demi Anand bs by mouth Cezar, - every day M.D. 02/03 at bedtime as directed Divalproex 07/[address] 500mg 60tab 1 tab by G43.009 Demi Anand s mouth Cezar, - twice a M.D. 07/07 day directed [employer] 11/08 Hx Tablets 5-325mg 60tab take 1-2 Osorio Gill, s tab po M.D. - every 4-6 10/06 hours needed for pain Hydrocodone/Ac 09/27 Hx Tablets 5-325mg 30tab 1 to two Osorio Gill, etaminophen s tabs po q M.D. - 4-6h prn 09/05 Alprazolam Hx Tablets 0.5mg 20tab 1 tab po Unknown /0000 s bid prn - anxiety 08/26 Proair HFA Hx Aerosol 108(90Bas 1unit 2 puffs by Unknown /0000 e) s mouth - mcg/Act every 4 08/26 hours needed Multivitamins Hx Capsules 30cap 1 capsule Unknown /0000 s daily - 08/26 Tylenol Extra Hx Tablets 500mg 100ta 2 by mouth Unknown Strength /0000 bs as needed - 08/26 Naproxen Hx Tablets 500mg 30tab 2 by mouth Unknown /0000 s twice a - day as 08/26 Xanax Hx Tablets 0.25mg one by Unknown /0000 mouth up - to three 09/26 times daily as needed for anxiety Prozac Hx Capsules 20mg 1 by mouth Unknown /0000 every day - 07/15 Replax Hx Tablet 40mg 1 tab prn Unknown /0000 and my - repeat 02/03 dose in hrs if needed, not to exceed 2 per week (makes patient hallucinat e) Vital Signs Date Vital Result Comment 09/22/2017 Height 74 inches 6'2" Weight 270.00 lb BP Systolic Sitting 128 mmHg BP Diastolic Sitting 80 mmHg Pain Level 9 BMI (Body Mass Index) 34.7 kg/m2 06/28/2017 Height 74 inches 6'2" Weight 270.00 [...] Procedures Date CPT Code Description Status 05/31/2017 60260 Allergy Test, Patch Or Application Completed 11/02/2013 51674 Nerve Conduction 03-04 Studies Completed 11/02/2013 73452 Needle Electromyography Complete, Five Or More Muscles Completed Studied 11/16/2012 29326 Arthroscopy,Knee,Meniscectomy Medial Or Lateral Completed 04/25/2012 04616 Xray Knee 3 Views Completed 04/25/2012 35409 Xray Knee 3 Views Completed 04/25/2012 13128 Rad Exam; Knee, Ap&L Completed 04/25/2012 52689 Rad Exam; Knee, Ap&L Completed 12/16/2010 40847 Xray Knee 3 Views Completed 12/16/2010 52556 Xray Knee 3 Views Completed Encounters Type Date Location Provider CPT E/M Dx Office Visit 06/28/2017 [facility] Cory Zuniga, 19902 G43.001 11:15a [facility] Office Visit 06/04/2017 [facility] [place] [place] [address] L23.9 11:00a Office Visit 06/02/2017 [facility] [place] [address] L23.9 2:10p Office Visit 05/24/2017 [facility] [place] [address] L23.9 3:00p L30.8 Office Visit 02/04/2017 9:15a [facility] Demi PoloCharis Fedeodette, 65684 G43.001 [facility] M.D. Office Visit 07/30/2016 11:45a [facility] Demi ChristCharis Robb, 28345 G43.009 [facility] M.D. Office Visit 07/16/2016 9:00a [facility] Demi PoloCharis Robb, 78356 G43.009 [facility] M.D. Office Visit 09/27/2015 9:30a [facility] Raffy Corona, 91811 M54.16 [facility] M.D. Office Visit 08/27/2014 10:30a [facility] Osorio Gill M.D. 42191 717.7 C.M.A. Office Visit 09/20/2013 10:00a [facility] Linette Ryan, 98493 719.46 [facility] M.D. 782.0 724.5 Office Visit 09/05/2013 9:15a [facility] O[facility] Gill M.D. 22569 719.46 C.M.A. Office Visit 04/06/2013 2:00p [facility] M.D. 78187 719.46 C.M.A. Office Visit 09/27/2012 11:45a [facility] M.D. 90491 836.2 C.M.A. Office Visit 06/28/2012 2:00p [facility] O[facility] M.D. 18433 844.8 C.M.A. 719.46 Office Visit 06/10/2012 3:15p [facility] O[facility] M.D. 89182 719.46 C.M.A. 844.8 Office Visit 04/25/2012 8:30a [facility] [place] Pop 06944 719.46 C.M.ACharis Ro Office Visit 12/16/2010 11:00a [facility] Mohsen Roberts, 43883 719.46 C.M.A. M.D. Plan of Care Future Appointment(s):10/04/2017 1:30 pm - Hallie Burkett PA-C at [facility]10/21/2017 11:00 am - Kaur Gregorio MD at [facility]10/07/2017 2:30 pm - Cory Zuniga M.D. at [facility]09/22/2017 - NICHOLAS Xie-CM54.16 Radiculopathy, lumbar regionFollow up:follow up after MRI
[2017-09-28 14:47] VITALS: BP 138/105
[2017-09-28] MEDS ORDERED: NS 0.9% 1000 ML* 1,000 ML IV ONE (15:02)
--- NOTE | 2017-09-28 15:30 | ED ---
GI/ HPI - HPI Summary HPI Summary: This is dion Duffy documenting for attending Grant Lees MD. This patient is a 32 year old M [place] [facility] [place] a chief complaint of rectal bleeding that started today immediately following [place] [facility] [place] The patient rates the pain 9/10 in severity. Patient reports lower pelvic pain, lower back pain and nausea. Patient denies abd pain, hematuria, or hematemesis. Pt reports that his lower back pain began 20 days ago. Pt uses a cane and a back brace to ambulate. PMHX several knee surgeries, 11 teeth extracted, cholecystectomy, and GERD. No Rx blood thinners. Pt still has his appendix. Pt did not drive to get [place] [facility] [place] - History of Current Complaint Chief Complaint: UCGI Stated Complaint: BLOODY VICTOR HUGO Hx Obtained From: Patient Onset/Duration: Started Minutes Ago - just before triage Timing: Constant Severity: Severe Current Severity: Severe Pain Intensity: 9 Pain Radiates to: Back Associated Signs and Symptoms: Positive: Back Pain, Nausea, Blood-Streaked Stool , Bright Red Blood w/Stool, Blood w/Stool. Negative: Hematemesis - Allergy/Home Medications Allergies/Adverse Reactions: Allergies Allergy/AdvReac Type Severity Reaction Status Date / Time prednisone Allergy Severe Itching Verified 09/28/17 14:47 penicillin G Allergy Unknown Unknown Verified 09/28/17 14:47 Reaction Details balsam vanessa Allergy Unknown Verified 09/28/17 14:47 Reaction Details formaldehyde Allergy Unknown Verified 09/28/17 14:47 Reaction Details propylene glycol Allergy Unknown Verified 09/28/17 14:47 Reaction Details doxycycline AdvReac Severe GI Upset Verified 09/28/17 14:47 cinnamic aldehyde Allergy Unknown Uncoded 08/26/17 10:40 Reaction Details Methyldibromo Glutaronitrite Allergy Unknown Uncoded 08/26/17 10:40 Reaction Details Home Medications: Home Medications HYDROmorphone TAB* [Dilaudid TAB*] 4 mg PO Q6HR 09/28/17 [History Confirmed ] PMH/Surg Hx/FS Hx/Imm Hx Endocrine/Hematology History: Denies: Hx Diabetes, Hx Sickle Cell Disease Cardiovascular History: Denies: Hx Hypertension, Hx Pacemaker/ICD, Other Cardiovascular Problems/ Disorders Respiratory History: Reports: Hx Asthma - HAS INHALER GI History: Reports: Hx Gastroesophageal Reflux Disease - PT TAKES TUMS WHEN NEEDED, Hx Irritable Bowel - MILD SINCE REMOVAL OF GALLBLADDER, Hx Ulcer - HAD REMOVED Denies: Other GI Disorders History: Reports: Hx Kidney Stones - ON AND OFF Denies: Hx Renal Disease, Other Problems/Disorders Musculoskeletal History: Denies: Other Musculoskeletal History Sensory History: Reports: Hx Contacts or Glasses - GLASSES Denies: Hx Hearing Aid Opthamlomology History: Reports: Hx Contacts or Glasses - GLASSES Neurological History: Reports: Hx Migraine, Other Neuro Impairments/Disorders - PAIN CLINIC PATIENT Psychiatric History: Reports: Hx Anxiety, Hx Depression, Hx Panic Disorder - Surgical History Surgery Procedure, Year, and Place: GALLBLADDER 2012, ORAL X 9, RIGHT KNEE X2, Hx Anesthesia Reactions: No - SLEEPS ALONG TIME AFTER Infectious Disease History: No Infectious Disease History: Denies: Traveled Outside the [place] in Last 30 Days - Family History Known Family History: Positive: Diabetes, Other - cancer - Social History Alcohol Use: None Substance Use Type: Reports: None Substance Use Comment - Amount & Last Used: hydrocodone, valium, gabapentin Smoking Status (MU): Former Smoker Type: Cigarettes Length of Time of Smoking/Using Tobacco: 6 yrs Have You Smoked in the Last Year: No Review of Systems Negative: Fever Negative: Cough Positive: Nausea. Negative: Abdominal Pain, Vomiting Negative: dysuria, hematuria Positive: Other - lower back pain All Other Systems Reviewed And Are Negative: Yes Physical Exam - Summary Physical Exam Summary: General: well-appearing, no pain distress Skin: warm, color reflects adequate perfusion, dry Head: normal Eyes: EOMI, ALISTAIR ENT: normal Neck: supple, nontender Respiratory: CTA, breath sounds present Cardiovascular: RRR Abdomen: Bilateral lower abd pain. Nontender epigastric. Bowel: Positive bowel sounds Musculoskeletal: Strength/ROM intact. Tenderness in the lower back. Neurological: sensory/motor intact, A&O x3 Psychological: affect/mood appropriate Triage Information Reviewed: Yes Vital Signs On Initial Exam: Initial Vitals Temp Pulse Resp BP Pulse Ox 97.8 F 87 18 138/105 97 09/28/17 14:41 09/28/17 14:41 09/28/17 14:41 09/28/17 14:41 09/28/17 14:41 Vital Signs Reviewed: Yes Diagnostics - Vital Signs Vital Signs Temp Pulse Resp BP Pulse Ox 09/28/17 14:41 97.8 F 87 18 138/105 97 - Laboratory Lab Statement: Any lab studies that have been ordered have been reviewed, and results considered in the medical decision making process. GIGU Course/Dx - Course Course Of Treatment: PATIENT SENT TO ED BY AMBULANCE. - Diagnoses Provider Diagnoses: GI bleed Discharge - Sign-Out/Discharge Documenting (check all that apply): Patient Departure - Discharge Plan Condition: Stable Disposition: TRANS HIGHER LVL OF CARE FAC Referrals: Noe Meyer MD [Primary Care Provider] - - Billing Disposition and Condition Condition: STABLE Disposition: Trans Higher Lvl of Care Fac
== END 2017-09-28 15:20 | disposition short-term general hospital (02) ==
LOC: UCEAST 14:30
DX: K62.5 Hemorrhage of anus and rectum (principal); M54.5 Low back pain; R11.0 Nausea; R10.2 Pelvic and perineal pain; Z88.0 Allergy status to penicillin; Z88.8 Allergy status to other drugs, medicaments and biological substances; Z91.09 Other allergy status, other than to drugs and biological substances; Z88.1 Allergy status to other antibiotic agents; Z91.048 Other nonmedicinal substance allergy status; Z87.891 Personal history of nicotine dependence
CPT/HCPCS: 99213; G0463

== ENCOUNTER 2017-09-28 15:44 | Emergency (ER) | payer OTHER ==
--- NOTE | 2017-09-28 16:05 | ED ---
GI/ HPI - HPI Summary HPI Summary: 32 y/o male BIBA c/o 1 episode bright red blood w/ BM around 1 hr ago. Pt currently c/o lower back pain, diffuse lower ABD pain and testicular pain. Pt states he "feels like his intestines are rubbing up against his spine". Pt tried to have a bowel movement 1 hr ago - nothing but blood came out. Pt has had back pain since 09/07/17. Pt had an MRI of his back earlier today. PMHx back problems. Pt states he takes Dilaudid. This is scribe Ed Kayla documenting for attending Baron Reyes MD - History of Current Complaint Chief Complaint: EDGIBleed Time Seen by Provider: 09/28/17 15:59 Stated Complaint: RECTAL BLEED Hx Obtained From: Patient Onset/Duration: Started Hours Ago Pain Intensity: 6 Location of Pain: Diffuse - lower back, lower ABD Additional Locations for Males: Testicles Associated Signs and Symptoms: Positive: Bright Red Blood w/Stool, Abdominal Pain, Other: - lower back pain, testicular pain - Allergy/Home Medications Allergies/Adverse Reactions: Allergies Allergy/AdvReac Type Severity Reaction Status Date / Time prednisone Allergy Severe Itching Verified 09/28/17 17:36 penicillin G Allergy Unknown Unknown Verified 09/28/17 17:36 Reaction Details balsam vanessa Allergy Unknown Verified 09/28/17 17:36 Reaction Details formaldehyde Allergy Unknown Verified 09/28/17 17:36 Reaction Details propylene glycol Allergy Unknown Verified 09/28/17 17:36 Reaction Details doxycycline AdvReac Severe GI Upset Verified 09/28/17 17:36 cinnamic aldehyde Allergy Unknown Uncoded 08/26/17 10:40 Reaction Details Methyldibromo Glutaronitrite Allergy Unknown Uncoded 08/26/17 10:40 Reaction Details Home Medications: Home Medications Riboflavin (Vitamin B2) [Riboflavin] 50 mg PO DAILY 09/28/17 [History Confirmed 09/28/17] PMH/Surg Hx/FS Hx/Imm Hx Previously Healthy: No Endocrine/Hematology History: Denies: Hx Diabetes, Hx Sickle Cell Disease Cardiovascular History: Denies: Hx Hypertension, Hx Pacemaker/ICD, Other Cardiovascular Problems/ Disorders Respiratory History: Reports: Hx Asthma - HAS INHALER GI History: Reports: Hx Gastroesophageal Reflux Disease - PT TAKES TUMS WHEN NEEDED, Hx Irritable Bowel - MILD SINCE REMOVAL OF GALLBLADDER, Hx Ulcer - HAD REMOVED Denies: Other GI Disorders History: Reports: Hx Kidney Stones - ON AND OFF Denies: Hx Renal Disease, Other Problems/Disorders Musculoskeletal History: Denies: Other Musculoskeletal History Sensory History: Reports: Hx Contacts or Glasses - GLASSES Opthamlomology History: Reports: Hx Contacts or Glasses - GLASSES Neurological History: Reports: Hx Migraine, Other Neuro Impairments/Disorders - PAIN CLINIC PATIENT Psychiatric History: Reports: Hx Anxiety, Hx Depression, Hx Panic Disorder - Surgical History Surgery Procedure, Year, and Place: GALLBLADDER 2012, ORAL X 9, RIGHT KNEE X2, Hx Anesthesia Reactions: No - SLEEPS ALONG TIME AFTER Infectious Disease History: No Infectious Disease History: Denies: Traveled Outside the [place] in Last 30 Days - Family History Known Family History: Positive: Diabetes, Other - cancer - Social History Alcohol Use: None Substance Use Type: Reports: None Substance Use Comment - Amount & Last Used: hydrocodone, valium, gabapentin Smoking Status (MU): Former Smoker Type: Cigarettes Length of Time of Smoking/Using Tobacco: 6 yrs Have You Smoked in the Last Year: No Review of Systems Constitutional: Negative Eyes: Negative ENT: Negative Cardiovascular: Negative Respiratory: Negative Positive: Abdominal Pain, Other - blood w/ BM Positive: other - testicular pain Musculoskeletal: Other - lower back pain Skin: Negative Neurological: Negative Psychological: Normal All Other Systems Reviewed And Are Negative: Yes Physical Exam - Summary Physical Exam Summary: VITAL SIGNS: Reviewed. GENERAL: Patient is a well-developed and obese male who is lying comfortable in the stretcher. Patient is not in any acute respiratory distress. HEAD AND FACE: No signs of trauma. No ecchymosis, hematomas or skull depressions. No sinus tenderness. EYES: PERRLA, EOMI x 2, No injected conjunctiva, no nystagmus. EARS: Hearing grossly intact. Ear canals and tympanic membranes are within normal limits. MOUTH: Oropharynx within normal limits. NECK: Supple, trachea is midline, no adenopathy, no JVD, no carotid bruit, no c- spine tenderness, neck with full ROM. CHEST: Symmetric, no tenderness at palpation LUNGS: Clear to auscultation bilaterally. No wheezing or crackles. CVS: Regular rate and rhythm, S1 and S2 present, no murmurs or gallops appreciated. ABDOMEN: Soft, tender @ lower ABD. No signs of distention. No rebound no guarding, and no masses palpated. Bowel sounds are normal. EXTREMITIES: FROM in all major joints, no edema, no cyanosis or clubbing. NEURO: Alert and oriented x 3. No acute neurological deficits. Speech is normal and follows commands. SKIN: Dry and warm RECTAL: Positive external hemorrhoids. Normal sphincter tone, no gross blood or melena. Triage Information Reviewed: Yes Vital Signs On Initial Exam: Initial Vitals Temp Pulse Resp BP Pulse Ox 98.9 F 75 18 143/102 98 09/28/17 15:51 09/28/17 15:51 09/28/17 15:51 09/28/17 15:51 09/28/17 15:51 Vital Signs Reviewed: Yes Diagnostics - Vital Signs Vital Signs Temp Pulse Resp BP Pulse Ox 09/28/17 15:51 98.9 F 75 18 143/102 98 - Laboratory Result Diagrams: 09/28/17 16:55 09/28/17 16:55 Lab Statement: Any lab studies that have been ordered have been reviewed, and results considered in the medical decision making process. - Radiology ABD XR Xray Interpretation: No Acute Changes - No evidence for obstruction Radiology Interpretation Completed By: Radiologist Re-Evaluation - Re-Evaluation 1 Re-Evaluation Time: 17:47 Change: Improved Comment: Discussed initial test results and findings, plan to d/c. pt states he feels better GIGU Course/Dx - Course Assessment/Plan: Patient is a 32-year-old male who presents to the emergency department with a chief complaint of having rectal bleeding. The patient reports that today he was restraining to have a bowel movement and suddenly he so blood in the toilet. He was bright red per rectum. He also developed some rectal pain. He has no other complaints. Blood test results shows a there is of 13.1 and no other abnormalities. The hemoglobin and hematocrit are stable. X-ray of the abdomen shows no evidence for obstruction. He symptoms of the patient has increased amount of stool. Therefore I discussed all the findings and test results with the patient and I think that the patient is having an ectopic from her hemorrhoids. The patient was given Anusol and MiraLAX. He was also instructed if he develops any more with Matt the [facility] and management. At this point the patient is hemodynamically stable and he is alert and oriented 3. All his questions were addressed and he has no further concerns. - Diagnoses Provider Diagnoses: Hemorrhoid, Rectal bleed, Constipation Discharge - Sign-Out/Discharge Documenting (check all that apply): Patient Departure - Discharge Plan Condition: Stable Disposition: HOME Prescriptions: Hydrocortisone SUPP* [Anusol HC Supp*] 25 mg AR TID #12 supp Polyethylene Glycol 3350* [Miralax*] 17 gm PO DAILY #12 packet Patient Education Materials: Constipation (ED), Hemorrhoids (ED), Rectal Bleeding (ED) Referrals: Noe Meyer MD [Primary Care Provider] - 4 Days (PLEASE F/U IN 3-5 DAYS) Additional Instructions: RETURN TO THE ED FOR CHANGING/WORSENING SYMPTOMS - Billing Disposition and Condition Condition: STABLE Disposition: Home
[2017-09-28] MEDS ORDERED: NS 0.9% 1000 ML* 1,000 ML IV ONE (16:07)
--- NOTE | 2017-09-28 17:03 | RAD ---
INDICATION: Abdominal pain. COMPARISON: There are no prior studies available for comparison. TECHNIQUE: Supine and decubitus views of the abdomen were obtained. FINDINGS: The small bowel and colon appear nondistended. No free intraperitoneal air is seen. Surgical clips are noted in the right upper quadrant consistent with a prior cholecystectomy. IMPRESSION: NO EVIDENCE FOR OBSTRUCTION.
[2017-09-28 17:06] LABS: ABS Basophils 0.1 10^3/ul (0-0.2); ABS Eosinophils 0.3 10^3/ul (0-0.6); ABS Monocytes 0.8 10^3/ul (0-0.8); ABS Neutrophils 8.9 10^3/ul (1.5-7.7); ABS Nucleated RBC 0 10^3/ul; Eosinophil % 2.5 % (0-6); Hematocrit 42 % (42-52); Hemoglobin 14.1 g/dl (14.0-18.0); Mean Corpuscular HGB Conc 34 g/dl (31-36); Mean Corpuscular Hemoglobin 30 pg (27-31); Mean Corpuscular Volume 89 fL (80-94); Mean Platelet Volume 7.6 um3 (7.4-10.4); Nucleated Red Blood Cells % 0; Platelet Count 311 10^3/ul (150-450); Red Blood Count 4.71 10^6/ul (4.00-5.40); Red Cell Distribution Width 14 % (10.5-15); White Blood Count 13.1 10^3/ul (3.5-10.8)
[2017-09-28 17:28] LABS: EGFR Non-African American 145.9 (>60)
[2017-09-28 18:22] VITALS: BP 129/80
== END 2017-09-28 18:21 | disposition home or self-care (01) ==
LOC: ED 15:44
DX: K64.9 Unspecified hemorrhoids (principal); K62.5 Hemorrhage of anus and rectum; K59.00 Constipation, unspecified; N50.819 Testicular pain, unspecified; R10.9 Unspecified abdominal pain
CPT/HCPCS: 36415; 74019; 80053; 82272; 83690; 85025; 86140; 96360; 99283

== ENCOUNTER 2017-10-12 07:57 | Inpatient (IN) | payer OTHER ==
[~2017-10-12 07:57] MED LIST: Acetaminophen TAB* 325 MG PO ONE; Buffered Lidocaine 0.9% SYRIN* 5 ML/SYR SYRINGE INTRADERM ONE; Famotidine IV* 10 MG/ML 2 ML (20 mg) IV ONE
[2017-10-12] MEDS ORDERED: Midazolam* 1 MG/ML 2 ML VIAL (2 MG) ONE ×2 (08:19→09:45)
[2017-10-12] MEDS ORDERED: Rocuronium* 10 MG/ML VIAL ONE (08:19)
[2017-10-12] MEDS ORDERED: fentaNYL* 50 MCG/ML 5 ML VIAL (250 MCG VIAL) ONE (08:19)
[2017-10-12] MEDS ORDERED: Famotidine IV* 10 MG/ML 2 ML (20 mg) ONE (08:20)
[2017-10-12] MEDS ORDERED: Lidocaine 2% PF * 5 ML VIAL ONE (08:20)
[2017-10-12] MEDS ORDERED: Propofol* 10 MG/ML 20 ML BTL IV PUSH ONE (08:20)
[2017-10-12] MEDS ORDERED: Acetaminophen TAB* 325 MG ONE (08:20)
[2017-10-12] MEDS ORDERED: Clindamycin 900 MG IVPREMIX(* 900 MG/50 ML SDV IV ONE (08:20)
[2017-10-12] MEDS ORDERED: Bacitracin IV* 50,000 UNITS INJ ONE (09:32)
[2017-10-12] MEDS ORDERED: Lidocain 1% EPI 1:100,000 * 30 ML MDV ONE (09:32)
[2017-10-12] MEDS ORDERED: Thrombin 5,000 UNITS* 1 APPLIC KIT - topical use - TOPICAL ONE (09:32)
[2017-10-12] MEDS ORDERED: Scopolamine 1.5 mg* PATCH ONE (09:41)
[2017-10-12] MEDS ORDERED: Scopolamine 1.5 mg* PATCH TRANSDERM SCH (10:00)
[2017-10-12] MEDS ORDERED: HYDROmorphone INJ* 0.5 MG/0.5 ML SYRINGE ONE ×2 (10:16→11:54)
[2017-10-12] MEDS ORDERED: diPHENhydraMINE IV* 50 MG/ML 1 ml VIAL (BENADRYL) ONE (10:20)
[2017-10-12] MEDS ORDERED: HYDROmorphone INJ* 0.5 MG/0.5 ML SYRINGE IV PRN (10:44)
[2017-10-12] MEDS ORDERED: PROCHLORPERAZINE INJ 5 MG/ML 2 ML VIAL IV PRN (10:44)
[2017-10-12] MEDS ORDERED: oxyCODONE/Acetamin 5/325 MG* TAB PO PRN (10:44)
[2017-10-12] MEDS ORDERED: Ondansetron INJ* 2 MG/ML VIAL IV PRN (10:44)
[2017-10-12] MEDS ORDERED: fentaNYL* 50 MCG/ML 2 ML VIAL (100 MCG VIAL) IV PRN (10:44)
[2017-10-12] MEDS ORDERED: Acetaminophen TAB* 325 MG PO PRN ×2 (10:44→11:04)
[2017-10-12] MEDS ORDERED: Naloxone* 0.4 MG/ML 1 ML VIAL IV PRN (10:44)
[2017-10-12] MEDS ORDERED: Ondansetron INJ* 2 MG/ML VIAL ONE (10:51)
[2017-10-12] MEDS ORDERED: SUMAtriptan TAB* 100 MG PO PRN (11:11)
[2017-10-12] MEDS ORDERED: Albuterol HFA INHALER* 8 gm MDI INH PRN (11:11)
[2017-10-12] MEDS ORDERED: HYDROcodone/ACETAMIN 5-325 MG* 1 TAB ONE (12:51)
[2017-10-12] MEDS: HYDROcodone/ACETAMIN 5-325 MG* 1 TAB PO PRN ×2 (12:52→18:59)
--- NOTE | 2017-10-12 12:58 | RAD ---
Indication: L3-L4 LEFT discectomy. Comparison: September 28, 2017 MRI Technique: Prone crosstable lateral lumbar sacral spine 1030 hours Report: Ventral tip of the metallic instrument is at the level of the L3-L4 facet joints. More superficial soft tissue retractor noted. Mild L3-L4 and moderate L5-S1 disc space narrowing. Facet joint osteoarthritis most prominent at L4-L5 and L5-S1. IMPRESSION: #. Intraoperative control film.
[2017-10-12] MEDS ORDERED: Morphine INJ* 2 MG/ML 1 ML SYRINGE (TWO MG - NEW SYRINGE VERSION) ONE (13:02)
[2017-10-12] MEDS: Ondansetron INJ* 2 MG/ML VIAL IV PRN ×2 (13:03→20:18)
[2017-10-12] MEDS: Morphine INJ* 2 MG/ML 1 ML SYRINGE (TWO MG - NEW SYRINGE VERSION) IV PRN ×2 (16:01→20:10)
[2017-10-12] MEDS: Diazepam TAB(*) 5 MG PO PRN (16:54)
[2017-10-12] MEDS: Gabapentin CAP(*) 300 MG PO SCH (20:11)
[2017-10-12] MEDS: Ibuprofen TAB* 800 MG PO PRN (23:00)
[2017-10-13] MEDS: Morphine INJ* 2 MG/ML 1 ML SYRINGE (TWO MG - NEW SYRINGE VERSION) IV PRN ×3 (00:33→10:27)
[2017-10-13] MEDS ORDERED: PTO: Albuterol HFA INHALER* 8 gm MDI INH PRN (07:43)
[2017-10-13] MEDS: HYDROcodone/ACETAMIN 5-325 MG* 1 TAB PO PRN ×2 (08:04→11:49)
[2017-10-13] MEDS: Gabapentin CAP(*) 300 MG PO SCH ×2 (08:04→21:22)
[2017-10-13] MEDS: Diazepam TAB(*) 5 MG PO PRN ×2 (08:05→16:49)
[2017-10-13] MEDS: Ibuprofen TAB* 800 MG PO PRN ×2 (08:05→19:51)
--- NOTE | 2017-10-13 08:19 | PN ---
Progress Note - Progress Note Date of Service: 10/13/17 SOAP: Subjective: [S/p L3-4 left lumbar discectomy, POD #1. Requests valium and ibuprofen upon entering room. Complains of low back pain constant and leg pain with standing or ambulating. Pain management with [place], Ibuprofen, Morphine IV, Valium. Patient unmotivated to get up out of bed. Ambulates to bathroom. Denies headache and nausea. ] Objective: [ Vital Signs: Temp Pulse Resp BP Pulse Ox 98.2 F 76 16 112/63 95 10/13/17 07:50 10/13/17 07:50 10/13/17 08:05 10/13/17 07:50 10/13/17 07:50 General: Alert and NAD. Neuro: Motor and sensory intact. Incision: Dressing replaced. No swelling, erythema or warmth. ] Assessment: [Stable post op. ] Plan: [1. Physical therapy evaluation today. 2. Possible rehab or discharge home. ]
[2017-10-13] MEDS: HYDROmorphone TAB* 4 MG PO PRN ×2 (13:22→19:52)
[2017-10-13] MEDS ORDERED: diPHENhydraMINE PO* 25 MG PO ONE (13:43)
[2017-10-13] MEDS ORDERED: Methocarbamol TAB* 500 MG ONE (18:38)
[2017-10-13] MEDS: Methocarbamol TAB* 500 MG PO SCH ×2 (18:40→21:25)
--- NOTE | 2017-10-13 20:01 | RAD ---
Indication: Post L3-L4 discectomy October 12, 2017. Severe low back pain extending to the RIGHT side. Comparison: Intraoperative radiograph from October 12, 2017. September 28, 2017 MRI. Technique: Noncontrast CT lumbar sacral spine. Multiplanar reformation. Report: Postsurgical change of LEFT L3 laminotomy. Overlying interstitial edema within the LEFT paraspinal musculature. No loculated soft tissue plane fluid collection evident. Expected small foci of soft tissue gas along the posterior surgical tract and at the epidural space extending as far cephalad as T12 and as far caudally as the sacrum. No appreciable epidural fluid collection evident within limits of noncontrast CT. Negative for vertebral body fracture or spondylolysis at any level. Normal vertebral alignment without spondylolisthesis at any level. T12-L1: Unremarkable disc level for age without acquired spinal stenosis. L1-L2: Unremarkable disc level for age without acquired spinal stenosis. L2-L3: Unremarkable disc level for age without acquired spinal stenosis. L3-L4: Dorsally protruding material most prominent at the LEFT paracentral region similar magnitude to the disc herniation on the recent MRI. The differential includes granulation tissue or persistent or recurrent disc material. Resulting mild to moderate impression on the LEFT anterior margin of the thecal sac. No evidence for LEFT or RIGHT foraminal stenosis. L4-L5: Unremarkable disc level for age without acquired spinal stenosis. L5-S1: Broad posterior disc protrusion as on the prior exam without significant resulting impression on the neural structures. IMPRESSION: #. Postsurgical change of LEFT L3 laminotomy. Overlying interstitial edema within the LEFT paraspinal musculature. No loculated soft tissue plane fluid collection evident. Expected small foci of soft tissue gas along the posterior surgical tract and at the epidural space extending as far cephalad as T12 and as far caudally as the sacrum. No appreciable epidural fluid collection evident within limits of noncontrast CT. #. Dorsally protruding material at the L3-L4 disc level most prominent at the LEFT paracentral region similar magnitude to the disc herniation on the recent MRI. The differential includes granulation tissue or persistent or recurrent disc material. Resulting grossly unchanged mild to moderate impression on the LEFT anterior margin of the thecal sac. No evidence for LEFT or RIGHT foraminal stenosis.
[2017-10-13] MEDS: Ondansetron INJ* 2 MG/ML VIAL IV PRN (20:15)
--- NOTE | 2017-10-14 04:09 | OP ---
DATE OF OPERATION: 10/12/17 - ROOM #333 DATE OF : 87 SURGEON: Raffy Corona MD RESIDENT ASSISTANT CNA: NICHOLAS Xie ANESTHESIA: General. PRE-OP DIAGNOSIS: Herniated nucleus pulposus, L3-4, on the left. POST-OP DIAGNOSIS: Herniated nucleus pulposus, L3-4, on the left. OPERATIVE PROCEDURE: Lumbar diskectomy, L3-4, on the left with microdissection. DESCRIPTION OF PROCEDURE: After satisfactory general anesthesia was obtained, the patient was placed on the operating table in the prone position with the chest supported on the Donn frame and the back slightly flexed. The lumbar region was then clipped, prepped and draped in a sterile manner for lumbar laminectomy and a skin incision outlined from L3 to L4. This incision was infiltrated with 1% Xylocaine with epinephrine after which it was turned down sharply to the level of the lumbar fascia. The fascia was then divided along the spinous processes of L3 and L4 and the paraspinal musculature was stripped away from these posterior elements using the periosteal elevator and monopolar cautery. An intraoperative x-ray was obtained verifying proper interspace localization, after which a partial hemilaminectomy was carried out by removing the inferior aspect of the L3 and the superior aspect of L4 with a combination of the Midax Samuel drill and Kerrison rongeurs. This was carried superiorly until the attachment of ligamentum flavum was taken down. Ligamentum flavum was then removed with the Kerrison as well. At this point of the procedure, the operating microscope was brought into the field and the remainder of the procedure was done under microscopic visualization. Projecting beneath the L4 nerve root, there was noted to be subcapsular herniation of disk material. An opening was made in the posterior longitudinal ligament and multiple fragments of disk material removed from beneath the dural sac. The disk space itself was then cleared of any loose disk material using pituitary forceps and curettes. It was felt that a satisfactory decompression had been achieved. After assuring adequate hemostasis, the wound was thoroughly irrigated after which a piece of Gelfoam was placed over the laminectomy defect. The fascia was then reapproximated with 0 Vicryl sutures, the subcutaneous tissues closed with 3-0 Vicryl suture, and the skin closed with skin clips. The estimated blood loss was less than 50 cc, and final sponge, padding, and needle counts were correct. The patient was taken to the recovery room, extubated and in stable condition. [id number]/[facility] #: [id number] [facility]
[2017-10-14] MEDS: Gabapentin CAP(*) 300 MG PO SCH (07:09)
[2017-10-14] MEDS: Methocarbamol TAB* 500 MG PO SCH ×2 (07:09→12:54)
[2017-10-14] MEDS: Ibuprofen TAB* 800 MG PO PRN (09:28)
[2017-10-14] MEDS: HYDROmorphone TAB* 4 MG PO PRN (09:46)
[2017-10-14 11:57] VITALS: BP 122/90
--- NOTE | 2017-10-14 23:57 | PN ---
Progress Note - Progress Note Date of Service: 10/14/17 SOAP: Subjective: []Patient was seen earlier this am. No events ON. Tolerates PO well, Voids, Ambulates well per nursing. Ambulates to [facility], Pain much better controlled. Wants to go home. Objective: []VSS Wound s,c,d AAOx3 CN II-XII grossly intact Motor 5/5 all extremities Sensory grossly intact to light touch Assessment: []32 yom sp Lt L3-4 LMD Plan: [] Encourage ambulation DC planning Full instructions were given. Cecile Shah MD
[2017-10-15] MEDS ORDERED: Scopolamine PATCH Remove* 1 NOTE MISC PATCH OFF ONE (09:43)
== END 2017-10-14 13:59 | disposition home health service (06) | DRG 310 ==
LOC: OR 07:57 → SSU 11:08 → OBSVTOIN 10-13 12:41
PROVIDERS: ADMIT Neurological Surgery; ATTEND Neurological Surgery
PROC: 0SB20ZZ Excision of Lumbar Vertebral Disc, Open Approach (ICD-10-PCS; principal; 2017-10-13)
DX: M51.16 Intervertebral disc disorders with radiculopathy, lumbar region (principal); E66.9 Obesity, unspecified; J45.909 Unspecified asthma, uncomplicated; K21.9 Gastro-esophageal reflux disease without esophagitis; F43.10 Post-traumatic stress disorder, unspecified; G89.29 Other chronic pain; F98.8 Other specified behavioral and emotional disorders with onset usually occurring in childhood and adolescence; Z88.0 Allergy status to penicillin; Z88.2 Allergy status to sulfonamides; Z88.8 Allergy status to other drugs, medicaments and biological substances; Z87.891 Personal history of nicotine dependence; Z68.33 Body mass index [BMI] 33.0-33.9, adult
CPT/HCPCS: 72100; 72131; A9270-GY; G0378; G8978-GP-CJ; G8979-GP-CI; J1170; J1200; J2250; J2270; J2405; J2704; J3010

== ENCOUNTER 2018-06-20 09:42 | Emergency (ER) | payer OTHER ==
[2018-06-20 10:03] VITALS: BP 126/90
--- NOTE | 2018-06-20 11:13 | UC ---
Hand/Wrist HPI - HPI Summary HPI Summary: Erythema, edema, tenderness, and increased warmth to the dorsal left hand that does not involve the fingers. ROM to fingers mildly reduced d/t edema. No obvious lesions or gross deformity. Sensation and circulation intact. - History Of Current Complaint Chief Complaint: UCUpperExtremity Stated Complaint: L HAND INJURY Time Seen by Provider: 06/20/18 11:07 Hx Obtained From: Patient Pain Intensity: 7 - Allergies/Home Medications Allergies/Adverse Reactions: Allergies Allergy/AdvReac Type Severity Reaction Status Date / Time balsam vanessa Allergy Severe Hives Verified 03/17/18 12:45 formaldehyde Allergy Severe Hives Verified 06/20/18 10:03 penicillin G Allergy Severe Hives/Diff. Verified 06/20/18 10:03 Breathing/I tching prednisone Allergy Severe Itching Verified 06/20/18 10:03 propylene glycol Allergy Severe Hives Verified 06/20/18 10:03 adhesive Allergy See Comment Verified 06/20/18 10:03 aspirin Allergy Unknown Verified 06/20/18 10:03 Reaction Details doxycycline AdvReac Severe GI Upset Verified 06/20/18 10:03 clindamycin AdvReac Nausea Verified 06/20/18 10:03 isopropamide AdvReac Nausea Verified 06/20/18 10:03 cinnamic aldehyde Allergy Severe Hives Uncoded 06/20/18 10:03 Methyldibromo Glutaronitrite Allergy Severe Hives Uncoded 06/20/18 10:03 Seafood Allergy Intermediate GI Upset Uncoded 06/20/18 10:03 Tomatoes Allergy Intermediate Rash And Uncoded 06/20/18 10:03 Itching rubbing alcohol Allergy Hives Uncoded 06/20/18 10:03 PMH/Surg Hx/FS Hx/Imm Hx Respiratory History: Asthma Neurological History: Migraine, Other - Herniated lumbar disc Psychological History: Anxiety - Surgical History Surgical History: Yes Surgery Procedure, Year, and Place: GALLBLADDER 2012, ORAL X 9, RIGHT KNEE X2,. LSP 10/2017. INJECTIONS IN SPINE - Family History Known Family History: Positive: Diabetes, Other - cancer - Social History Occupation: Unemployed Lives: Alone Alcohol Use: Rare Alcohol Amount: drink on New Years Substance Use Type: Marijuana Substance Use Comment - Amount & Last Used: denies Smoking Status (MU): Never Smoked Tobacco Type: Cigarettes Amount Used/How Often: 1 ppd for 6 years Length of Time of Smoking/Using Tobacco: 6 yrs Have You Smoked in the Last Year: No When Did the Patient Quit Smoking/Using Tobacco: 2013 - Immunization History Most Recent Influenza Vaccination: 2016/2017 season Most Recent Pneumonia Vaccination: none Review of Systems All Other Systems Reviewed And Are Negative: Yes Constitutional: Negative: Fever, Chills Skin: Positive: Other - See HPI Respiratory: Negative: Shortness Of Breath, Cough Cardiovascular: Negative: Palpitations, Chest Pain Gastrointestinal: Negative: Abdominal Pain, Vomiting, Diarrhea, Nausea Genitourinary: Positive: Negative Motor: Negative: Weakness Neurovascular: Negative: Decreased Sensation Musculoskeletal: Positive: Decreased ROM - left hand/fingers due to swelling. Negative: Arthralgia Neurological: Positive: Negative Is Patient Immunocompromised?: No Physical Exam - Summary Physical Exam Summary: GENERAL APPEARANCE: Well developed, well nourished, alert and cooperative, and appears to be in no acute distress. CARDIAC: Normal S1 and S2. No S3, S4 or murmurs. Rhythm is regular. There is no peripheral edema, cyanosis or pallor. Extremities are warm and well perfused. Capillary refill is less than 2 seconds. Peripheral pulses intact. LUNGS: Clear to auscultation without rales, rhonchi, wheezing or diminished breath sounds. ABDOMEN: Positive bowel sounds. Soft, nondistended, nontender. No guarding or rebound. No masses or hepatosplenomegally. MUSKULOSKELETAL: No joint erythema or tenderness. Normal muscular development. Normal gait. EXTREMITIES: Erythema, edema, tenderness, and increased warmth to the dorsal left hand that does not involve the fingers. ROM to fingers mildly reduced d/t edema. No obvious lesions or gross deformity. Sensation and circulation intact. SKIN: Skin normal color, texture and turgor. Triage Information Reviewed: Yes Vital Signs: Initial Vital Signs Temp 97.4 F 06/20/18 09:59 Pulse 79 06/20/18 09:59 Resp 18 06/20/18 09:59 BP 126/90 06/20/18 09:59 Pulse Ox 96 06/20/18 09:59 Vital Signs Reviewed: Yes Diagnostics - Radiology No standard instances Radiology Interpretation Completed By: ED Physician - No acute fracture. Soft tissue swelling., Radiologist Summary of Radiographic Findings: Order Information: HAND - LEFT MINIMUM 3 VIEWS. Accession Number: [id number]. CPT: 22963. INDICATION: Left hand pain and swelling and redness. TECHNIQUE: 4 views of the left hand were obtained. FINDINGS: There is diffuse soft tissue swelling. The bones are normal alignment. Joint. spaces appear maintained. No fracture is seen. No focal osseous abnormality is noted. IMPRESSION: SOFT TISSUE SWELLING. Hand/Wrist Course/Dx - Course Course Of Treatment: 33-year-old male presents with complaints of left hand redness, swelling, and pain. States he noted some pain in his left forearm last evening. This morning he woke up with the redness and swelling over the dorsal left hand. Denies injury, fever, chills, numbness, or tingling. Afebrile. Vital signs stable. Exam remarkable for erythema, edema, tenderness, and increased warmth to the dorsal left hand that does not involve the fingers. ROM to fingers mildly reduced d/t edema. No obvious lesions or gross deformity. Sensation and circulation intact. X-ray of the left hand was negative for fracture. Suspect cellulitis of the left hand. Patient reports multiple allergies to antibiotics including penicillins, doxycycline, and clindamycin therefore we will treat him with Bactrim DS one tablet twice a day for 7 days. He was given the first dose in the clinic. He is to follow-up with his primary care provider in 3-5 days if symptoms do not resolve. Anticipatory guidance and warning symptoms requiring immediate evaluation in the emergency room were reviewed with the patient. Verbalizes understanding and agrees with plan of care. - Differential Dx/Diagnosis Differential Diagnosis/HQI/PQRI: Cellulitis, Gout, Sprain, Tendonitis Provider Diagnosis: Cellulitis of left hand Discharge - Sign-Out/Discharge Documenting (check all that apply): Patient Departure All imaging exams completed and their final reports reviewed: Yes - Discharge Plan Condition: Stable Disposition: HOME Prescriptions: Sulfamethox/Trimethoprim DS* [Bactrim DS 800/160 TAB*] 1 tab PO BID #13 tab Patient Education Materials: Cellulitis (ED) Referrals: Noe Meyer MD [Primary Care Provider] - 3 Days (If no improvement.) Additional Instructions: Your symptoms appear to be an infection of the skin called cellulitis. We will treat you with an antibiotic for the infection. Take Bactrim DS 1 tab every twice a day for 7 days. We gave you the first dose in the clinic. Use your pain medication as directed as needed for pain. Follow up with your primary care provider in 3-5 days if symptoms do not resolve. Seek immediate medical attention in the emergency room if you develop fever greater than 100.5 F, have severe pain not managed with pain medication, the redness and swelling continue to worsen, you develop numbness or tingling in the hand or finger, or any worsening of symptoms. - Billing Disposition and Condition Condition: STABLE Disposition: Home - Attestation Statements Provider Attestation: Per institutional requirements, I have reviewed the chart, however, I was not consulted specifically or made aware of this patient by the midlevel provider. I did not personally evaluate, interact with , or disposition this patient.
[2018-06-20] MEDS ORDERED: Sulfamethox/Trimethoprim DS 800/160* TAB PO ONE (11:18)
== END 2018-06-20 12:02 | disposition home or self-care (01) ==
LOC: UCEAST 09:42
DX: L03.114 Cellulitis of left upper limb (principal); J45.909 Unspecified asthma, uncomplicated; G43.909 Migraine, unspecified, not intractable, without status migrainosus; F41.9 Anxiety disorder, unspecified; Z88.6 Allergy status to analgesic agent; Z88.1 Allergy status to other antibiotic agents; Z88.0 Allergy status to penicillin; Z91.013 Allergy to seafood; Z88.8 Allergy status to other drugs, medicaments and biological substances; Z91.018 Allergy to other foods; Z91.048 Other nonmedicinal substance allergy status; Z87.891 Personal history of nicotine dependence
CPT/HCPCS: 99212; A9270-GY; G0463

== ENCOUNTER 2018-06-22 16:32 | Inpatient (IN) | payer OTHER ==
--- NOTE | 2018-06-22 17:59 | ED ---
HPI Febrile Illness - HPI Summary HPI Summary: This is a 33-year-old man who presents to the emergency department on the advice of his primary care doctor for a worsening suspected cellulitis involving the left hand. He says he first noticed trouble with a small abrasion on the dorsal aspect of the left hand Wednesday evening and then by Wednesday morning he developed diffuse swelling and erythema and pain about the entire dorsum of the hand. He went to see his doctor on Wednesday, 2 days ago, and was prescribed Bactrim which she has been taking since then. Despite that he continues to have redness and swelling involving most of the hand, and today he noticed a area of swelling in the upper arm, just proximal to the elbow overlying the distal tricep. All of these areas are described as itchy and somewhat painful. He has not had any high fevers, but has had some shaking chills over the last couple days. He denies any other symptoms, such as cough, abdominal pain, urinary problems, or other focus of infection. - History of Current Complaint Chief Complaint: EDGeneral Time Seen by Provider: 06/22/18 17:48 Pain Intensity: 0 - Allergy/Home Medications Allergies/Adverse Reactions: Allergies Allergy/AdvReac Type Severity Reaction Status Date / Time balsam vanessa Allergy Severe Hives Verified 06/22/18 16:44 formaldehyde Allergy Severe Hives Verified 06/22/18 16:44 penicillin G Allergy Severe Hives/Diff. Verified 06/22/18 16:44 Breathing/I tching prednisone Allergy Severe Itching Verified 06/22/18 16:44 propylene glycol Allergy Severe Hives Verified 06/22/18 16:44 aspirin Allergy Mild Unknown Verified 06/22/18 20:04 Reaction Details adhesive Allergy See Comment Verified 06/22/18 16:44 tomato Allergy Rash Verified 06/23/18 08:05 doxycycline AdvReac Severe GI Upset Verified 06/22/18 16:44 clindamycin AdvReac Nausea Verified 06/22/18 16:44 isopropamide AdvReac Nausea Verified 06/22/18 16:44 cinnamic aldehyde Allergy Severe Hives Uncoded 06/22/18 16:44 Methyldibromo Glutaronitrite Allergy Severe Hives Uncoded 06/22/18 16:44 Seafood Allergy Intermediate GI Upset Uncoded 06/22/18 16:44 rubbing alcohol Allergy Hives Uncoded 06/22/18 16:44 Home Medications: Home Medications Prozac 20 mg PO DAILY 06/22/18 [History Confirmed 06/22/18] Valium 5 mg PO BID 06/22/18 [History Confirmed 06/22/18] PMH/Surg Hx/FS Hx/Imm Hx Endocrine/Hematology History: Denies: Hx Diabetes, Hx Sickle Cell Disease, Hx Thyroid Disease Cardiovascular History: Denies: Hx Hypertension, Hx Pacemaker/ICD, Other Cardiovascular Problems/ Disorders Respiratory History: Reports: Hx Asthma - HAS INHALER, Other Respiratory Problems/Disorders - History of pneumonia 02/21 Denies: Hx Chronic Obstructive Pulmonary Disease (COPD) GI History: Reports: Hx Gastroesophageal Reflux Disease - PT TAKES TUMS WHEN NEEDED, Hx Irritable Bowel - MILD SINCE REMOVAL OF GALLBLADDER, Hx Jaundice - jaundiced at Denies: Hx Ulcer, Other GI Disorders History: Reports: Hx Kidney Stones - ON AND OFF Denies: Hx Renal Disease, Other Problems/Disorders Musculoskeletal History: Reports: Hx Arthritis - Arthritis, knees and spine Denies: Hx Scoliosis, Other Musculoskeletal History Sensory History: Reports: Hx Contacts or Glasses - GLASSES Denies: Hx Hearing Aid Opthamlomology History: Reports: Hx Contacts or Glasses - GLASSES Neurological History: Reports: Hx Migraine Denies: Hx Headaches, Other Neuro Impairments/Disorders Psychiatric History: Reports: Hx Anxiety, Hx Depression, Hx Panic Disorder, Hx Post Traumatic Stress Disorder, Hx Inpatient Treatment, Hx Suicide Attempt - States not in last 5 years Denies: Other Psychiatric Issues/Disorders - Surgical History Surgery Procedure, Year, and Place: GALLBLADDER 2012, ORAL X 9, RIGHT KNEE X2,. LSP 10/2017. INJECTIONS IN SPINE Hx Anesthesia Reactions: No - SLEEPS ALONG TIME AFTER Infectious Disease History: No Infectious Disease History: Denies: Hx Hepatitis, Hx Human Immunodeficiency Virus (HIV), History Other Infectious Disease, Traveled Outside the [place] in Last 30 Days - Family History Known Family History: Positive: Diabetes, Other - cancer - Social History Alcohol Use: Rare Alcohol Amount: drink on New Years Substance Use Type: Reports: Marijuana Substance Use Comment - Amount & Last Used: denies Smoking Status (MU): Never Smoked Tobacco Type: Cigarettes Amount Used/How Often: 1 ppd for 6 years Length of Time of Smoking/Using Tobacco: 6 yrs Have You Smoked in the Last Year: No Review of Systems Positive: Fever - Subjective and low-grade, MAXIMUM TEMPERATURE is 99.6 which the patient says is "high for him", Chills. Negative: Fatigue Eyes: Negative ENT: Negative Cardiovascular: Negative Respiratory: Negative Positive: Vomiting - The patient has chronic nausea and vomiting related to his underlying psychiatric illness. All Other Systems Reviewed And Are Negative: Yes Physical Exam - Summary Physical Exam Summary: General: This is a well-developed, well- nourished middle-aged man lying on the stretcher in no apparent distress. The patient does not appear ill or toxic. Vital signs are noted to be normal HEENT:Extraocular movements are intact. Conjunctiva are normal without pallor. Pharynx is clear without exudate or swelling. Dentition is unremarkable. There is no sign of head trauma. Neck: Supple, no adenopathy noted. Lungs: Lungs are clear to auscultation. There are no signs of respiratory distress. Coronary: Peripheral perfusion is good. Heart sounds are regular, a normal S1 and S2 were auscultated. There is no gallop rhythm, nor any pathological sounded murmurs. Abdomen: The abdomen appears normal and is nondistended. Normoactive bowel sounds are present. On palpation, there is no significant tenderness, nor any guarding or rebound. There is no hepatosplenomegaly, nor any masses. Genitourinary: Deferred Back: Good range of motion is observed. There are no surface abnormalities nor any scoliosis. Extremities: Good range of motion was observed in all 4 extremities. There is no sign of any trauma to the extremities. Neurologic: The patient is awake and alert, speech is fluent in conversation is appropriate. There are no focal motor abnormalities. Cranial nerves are grossly intact. Deep tendon reflexes are 2+ and symmetric. There is no ataxia observed. Psychiatric. The patients affect is felt to be normal and appropriate. There is no sign of any hallucinations or delusions, or any other signs of psychosis Skin: There is an area of swelling involving mostly the dorsal aspect of the left hand with some associated mild erythema which extends just past the wrist. There is no lymphangitic streaking. Proximal to this, just proximal to the elbow overlying the distal triceps there is an oval area of erythema without induration with some central clearing. This measures approximately 8 x 6 cm. There is a small skin abrasion central to this lesion. However this does not appear to be abscessed and it is not draining. None of these skin lesions are indurated nor fluctuant. There is no adenopathy in the left axilla. Vital Signs On Initial Exam: Initial Vitals Temp Pulse Resp BP Pulse Ox 36.9 C 102 17 114/80 96 06/22/18 16:40 06/22/18 16:40 06/22/18 16:40 06/22/18 16:40 06/22/18 16:40 Diagnostics - Vital Signs Vital Signs Temp Pulse Resp BP Pulse Ox 06/22/18 16:40 36.9 C 102 17 114/80 96 - Laboratory Result Diagrams: 06/23/18 05:31 06/23/18 05:31 Lab Statement: Any lab studies that have been ordered have been reviewed, and results considered in the medical decision making process. Course/Dx - Diagnoses Provider Diagnoses: Cellulitis - Provider Notifications Discussed Care Of Patient With: Garrett Negrete - hospitalist Time Discussed With Above Provider: 18:50 Instructed by Provider To: MD Will See In ED - and admit Discharge - Sign-Out/Discharge Documenting (check all that apply): Patient Departure - ADMIT Patient Received Moderate/Deep Sedation with Procedure: No - Discharge Plan Condition: Improved Disposition: ADMITTED TO [facility] - Billing Disposition and Condition Condition: IMPROVED Disposition: Admitted to [facility] - Attestation Statements Document Initiated by Fred: Yes Documenting Scribe: Suni Lo Provider For Whom Scribe is Documenting (Include Credential): Dr. Sergei Talamantes MD Scribe Attestation: Suni Cruz scribed for Dr. Sergei Talamantes MD on 06/25/18 at 0636. Scribe Documentation Reviewed: Yes Provider Attestation: The documentation as recorded by the Suni ashley accurately reflects the service I personally performed and the decisions made by me, Dr. Sergei Talamantes MD Status of Scribe Document: Viewed
[2018-06-22 18:23] LABS: ABS Basophils 0.1 10^3/ul (0-0.2); ABS Eosinophils 0.4 10^3/ul (0-0.6); ABS Neutrophils 10.6 10^3/ul (1.5-7.7); ABS Nucleated RBC 0 10^3/ul; Eosinophil % 2.8 %; Hematocrit 44 % (36-46); Hemoglobin 14.4 g/dL (14.0-18.0); Lymphocyte % 24.9 %; Mean Corpuscular HGB Conc 33 g/dL (31-36); Mean Corpuscular Hemoglobin 30 pg (27-31); Mean Corpuscular Volume 90 fL (80-94); Mean Platelet Volume 7.5 fL (7.4-10.4); Nucleated Red Blood Cells % 0; Platelet Count 315 10^3/uL (150-450); Red Blood Count 4.83 10^6 /uL (4.18-5.48); Red Cell Distribution Width 13 % (10.5-15); White Blood Count 16.2 10^3/uL (3.5-10.8)
[2018-06-22 18:37] LABS: Albumin 4.3 g/dL (3.2-5.2); Albumin/Globulin Ratio 1.4 (1-3); BUN/Creatinine Ratio 27.1 (8-20); Calcium 9.4 mg/dL (8.6-10.3); EGFR African American 126.4 (>60); EGFR Non-African American 104.5 (>60); Potassium 3.8 mmol/L (3.5-5.0); Total Bilirubin 0.3 mg/dL (0.2-1.0); Total Protein 7.3 g/dL (6.4-8.9)
[2018-06-22] MEDS ORDERED: Magnesium Hydroxide LIQ* 30 ML UDC PO PRN (20:14)
[2018-06-22] MEDS ORDERED: Al Hydrox/Mg Hydrox/Simet LIQ* 30 ML UDC PO PRN (20:14)
[2018-06-22] MEDS ORDERED: Albuterol HFA INHALER* 8 gm MDI INH PRN (20:19)
[2018-06-22] MEDS ORDERED: Vancomycin(*) 1,000 MG in NS 0.9% 250 ML* 250 ML IVPB ONE (20:20)
[2018-06-22] MEDS ORDERED: NS 0.9% IV ONE (20:20)
[2018-06-22] MEDS ORDERED: NS 0.9% 250 ML* 250 ML ONE (20:43)
[2018-06-22] MEDS ORDERED: Vancomycin(*) 1,000 MG BAG/ADDV IVPB ONE (20:44)
[2018-06-22 20:58] LABS: Urine Appearance Cloudy; Urine Bilirubin Negative (Negative); Urine Blood Negative (Negative); Urine Color Yellow; Urine Glucose Negative (Negative); Urine Ketones Negative (Negative); Urine Nitrite Negative (Negative); Urine Protein Negative (Negative); Urine Specific Gravity 1.026 (1.010-1.030); Urine Urobilinogen Negative (Negative)
[2018-06-22 21:07] LABS: C Reactive Protein 7.31 mg/L (<8.01)
[2018-06-22] MEDS: Hydrocodone/Acetamin 10/325 1 TAB PO PRN (22:44)
--- NOTE | 2018-06-22 23:29 | HP ---
CC: Dr. Noe Meyer * HISTORY AND PHYSICAL: DATE OF ADMISSION: 06/22/18 PRIMARY CARE PROVIDER: Dr. Noe Meyer. ATTENDING PHYSICIAN: Onur Reddy MD * (dictated by Topher Burleson NP.) CHIEF COMPLAINT: Left hand erythema and warmth. HISTORY OF PRESENT ILLNESS/HOSPITAL COURSE: Mr. Tillman is a 33-year-old male with past medical history significant for chronic pain and depression, PTSD; who presents to the emergency room today by the advise of his primary care provider due to worsening suspected cellulitis of left hand. [facility] he reached into a cardboard box, felt a scrape on the dorsal aspect of his left hand, did not think much of it until about 20 to 30 minutes later he felt swelling and warmth in the area. He said he woke up Wednesday morning and symptoms were much worse. Therefore, he saw went to Urgent Care and he was prescribed Bactrim. He started Bactrim on Wednesday. The patient reports symptoms have slowly worsened, and today, he noticed redness going up his arm and some redness on his elbow. He reports this area is itchy and somewhat painful. He denies any fevers but reports he had a low-grade temp of 99.6. He reports that he did have some shaking and chills over the past couple of days. He also reports pain to his left anterior chest near the axilla and in axilla area to palpation. While in the emergency department, the patient had labs, which revealed leukocytosis of 16.2. He was also noted to be slightly tachycardic at 102 on admission. Given the fact the patient has failed outpatient antibiotics and has worsening symptoms, hospitalist was consulted for admission. The patient will be admitted to Medical. PAST MEDICAL HISTORY: 1. Chronic pain to his knees, back, neck, teeth. 2. Migraines. 3. Depression. 4. PTSD. 5. Anxiety. 6. Panic disorder. PAST SURGICAL HISTORY: 1. Cholecystectomy. 2. Multiple oral surgeries. 3. Right knee surgery. 4. Lumbar spine surgery. HOME MEDICATIONS: 1. Sumatriptan 100 mg p.o. p.r.n. 2. Medical marijuana 1 unit p.o. q.4 hours p.r.n. 3. [place] 10/325 p.o. t.i.d. p.r.n. 4. Albuterol inhaler 1 puff inhalation q.4 hours p.r.n. ALLERGIES: 1. BALSAM PAM. 2. FORMALDEHYDE. 3. PENICILLIN. 4. PREDNISONE. 5. PROPYLENE GLYCOL. 6. ASPIRIN. 7. ADHESIVES. 8. DOXYCYCLINE. 9. CLINDAMYCIN. 10. ISOPROPAMIDE. 11. CINNAMIC ALDEHYDE. 12. METHYLDIBROMO GLUTARONITRILE. 13. SEAFOOD. 14. TOMATOES. 15. RUBBING ALCOHOL. FAMILY HISTORY: The patient's family history is positive for diabetes. The patient's family history is negative for CAD or cancer. SOCIAL HISTORY: The patient reports daily medical marijuana use. Denies other drug use. The patient denies alcohol and tobacco use. The patient does not work. The patient is not . The patient does not have kids. The patient lives alone. REVIEW OF SYSTEMS: Constitutional: The patient reports low-grade fever of 99.6 , no anorexia, no abnormal weight loss. Cardiac: No chest pain, no edema, no palpitations. Respiratory: No cough, no hemoptysis, no shortness of breath. GI: No nausea or vomiting. No diarrhea, no abdominal pain. : No gross hematuria or dysuria. Neuro: No focal weakness or sensory loss. Eyes: No visual complaints. ENT: No dysphagia. Musculoskeletal: The patient reports multiple arthralgias due to arthritis and chronic pain. Skin: The patient reports redness to left hand, arm, and elbow. The patient denies any open areas or lesions. Psych: The patient reports anxiety, depression, PTSD, panic disorder. PHYSICAL EXAMINATION GENERAL: Mr. Tillman is a 33-year-old male who is sitting on the bed, appears to be in no acute distress. Appears stated age. VITAL SIGNS: Temp 98.5, HR 80, RR 16, BP 118/80, O2 saturation 95% on room air. HEENT: PERRLA. EOMs intact. Oral mucosa is moist without lesion. Posterior pharynx is clear. NECK: No lymphadenopathy. Supple. Full range of motion. RESPIRATORY: Symmetrical chest expansion. No accessory muscle use. Lungs are clear to auscultation. CARDIAC: S1, S2 present. Regular rate and rhythm. No murmurs, rubs, or gallops. ABDOMEN: Soft, nontender to palpation. Bowel sounds x4. EXTREMITIES: No edema. No clubbing or cyanosis. Pedal pulses 2+ bilaterally. [id number] swelling of the left hand and wrist. Slight redness to dorsal side of forearm and posterior side of elbow. Warmth also noted to these areas. MUSCULOSKELETAL: Full range of motion. Mild pain with movement of left shoulder. NEURO: Awake, alert, and oriented x4. Motor strength 5/5 in upper and lower extremities. SKIN: Grossly intact without lesions. DIAGNOSTIC STUDIES/LAB DATA: WBC 16.2, hemoglobin 14.4, hematocrit 44, platelets 315. Sodium 135, potassium 3.8, chloride 105, carbon dioxide 23, BUN 23, creatinine 0.85. Lactic acid 0.8. CRP pending. ASSESSMENT AND PLAN: Mr. Tillman is a 33-year-old male with a past medical history significant for chronic pain, migraines, depression, anxiety, posttraumatic stress disorder; who presents to the emergency department today with complaints of left hand swelling and redness and was found to have possible cellulitis and failed outpatient treatment. The patient will be admitted OBV. 1. Left hand cellulitis: There are no open areas or abscesses palpated. The patient failed Bactrim outpatient. The patient has multiple allergies including penicillin, clindamycin, doxycycline. There is very much limits our antibiotic choices. I have chosen to start with vanco and we can narrow accordingly. The nurses will farrukh the area to monitor redness. 2. Sepsis: The patient met sepsis criteria on admission with an elevated heart rate and elevated WBC and suspected source of infection. I have ordered the patient vancomycin. He has been pancultured, and he will receive an IV fluid bolus. We will also repeat his lactic acid. 3. Chronic pain: The patient reports chronic pain to bilateral knees, back, neck, teeth. The patient is on [place] at home. I will reorder this while the patient is inpatient. 4. Migraines: I will order the patient Imitrex as needed. 5. Depression: I will resume the patient's Prozac. 6. Left shoulder pain: The patient reports pain in the left axilla area and left chest near the axilla. No lymphadenopathy is palpated. I will order an x- ray for further evaluation. 7. FEN: The patient will receive regular diet. 8. Code status: The patient is a full code. 9. DVT prophylaxis: Based on the DVT risk assessment, the patient is a low risk. I will order SCDs and ambulation. 10. Surrogate decision maker: The patient reports his mother Jazmyn Quiles , who can reached at [phone], will be his surrogate decision maker in the case he cannot make his own decisions. TIME SPENT: Approximately 60 minutes were spent on this admission, greater than half the time was spent with the patient obtaining my history, performing physical exam, and reviewing my plan of care. This case has been reviewed with my attending Dr. Reddy, who is in agreement with my plan. Reviewed by TOPHER BURLESON NP 07/01/18 1031 [id number]/[facility] #: [id number] HAILEE
[2018-06-22] MEDS: Diazepam TAB(*) 5 MG PO SCH (23:48)
[2018-06-23 05:54] LABS: ABS Basophils 0.1 10^3/ul (0-0.2); ABS Eosinophils 0.4 10^3/ul (0-0.6); ABS Lymphocytes 3.7 10^3/ul (1.0-4.8); ABS Monocytes 0.8 10^3/ul (0-0.8); ABS Neutrophils 5.6 10^3/ul (1.5-7.7); ABS Nucleated RBC 0 10^3/ul; Eosinophil % 3.4 %; Hematocrit 43 % (36-46); Hemoglobin 14.5 g/dL (14.0-18.0); Lymphocyte % 34.9 %; Mean Corpuscular HGB Conc 34 g/dL (31-36); Mean Corpuscular Hemoglobin 30 pg (27-31); Mean Corpuscular Volume 90 fL (80-94); Mean Platelet Volume 7.4 fL (7.4-10.4); Nucleated Red Blood Cells % 0; Platelet Count 291 10^3/uL (150-450); Red Blood Count 4.81 10^6 /uL (4.18-5.48); Red Cell Distribution Width 13 % (10.5-15); White Blood Count 10.6 10^3/uL (3.5-10.8)
[2018-06-23 06:22] LABS: BUN/Creatinine Ratio 27.1 (8-20); Calcium 8.7 mg/dL (8.6-10.3); EGFR African American 192.6 (>60); EGFR Non-African American 159.2 (>60); Potassium 4.1 mmol/L (3.5-5.0)
[2018-06-23] MEDS: Hydrocodone/Acetamin 10/325 1 TAB PO PRN ×2 (08:03→16:35)
[2018-06-23] MEDS: FLUoxetine CAP* 20 MG PO SCH (08:03)
[2018-06-23] MEDS: Diazepam TAB(*) 5 MG PO SCH ×2 (08:03→20:19)
[2018-06-23] MEDS ORDERED: SUMAtriptan TAB* 100 MG PO PRN (09:00)
[2018-06-23] MEDS ORDERED: Diazepam TAB(*) 5 MG PO SCH (09:00)
[2018-06-23] MEDS: diPHENhydraMINE PO* 50 MG PO PRN ×2 (10:43→20:19)
[2018-06-23] MEDS ORDERED: Vancomycin per Pharmacy* NOTE FOLLOW UP PRN (16:12)
[2018-06-23] MEDS ORDERED: Vancomycin(*) 1,000 MG in NS 0.9% 250 ML* 250 ML IVPB SCH (16:30)
[2018-06-23] MEDS ORDERED: Vancomycin per Pharmacy* NOTE FOLLOW UP SCH (17:00)
[2018-06-23] MEDS ORDERED: Vancomycin(*) 1,500 MG in NS 0.9% 250 ML* 250 ML IVPB ONE (17:00)
--- NOTE | 2018-06-23 18:42 | PN ---
Subjective Date of Service: 06/23/18 Interval History: Patient has less redness in LT hand and elbow, and less pain. There is pruritis in the back of the hand. Worried that infection will spread in eye because he "rubs his eye when asleep. " No history of similar infections Family History: Unchanged from Admission Social History: Unchanged from Admission Past Medical History: Unchanged from Admission Objective Active Medications: Hydrocodone Bitart/Acetaminophen ([place] 10/325 (Nf)) 1 tab PO TID PRN PRN Reason: PAIN Last Admin: 06/23/18 16:35 Dose: 1 tab Al Hydrox/Mg Hydrox/Simethicone (Maalox Plus*) 30 ml PO Q6H PRN PRN Reason: INDIGESTION Albuterol (Ventolin Hfa Inhaler*) 1 puff INH Q4H PRN PRN Reason: SOB/WHEEZING Diazepam (Valium Tab(*)) 5 mg PO BID ZACH Last Admin: 06/23/18 08:03 Dose: 5 mg Diphenhydramine HCl (Benadryl Po*) 50 mg PO Q6H PRN PRN Reason: PRURITIS Last Admin: 06/23/18 10:43 Dose: 50 mg Fluoxetine HCl (Prozac Cap*) 20 mg PO DAILY ZACH Last Admin: 06/23/18 08:03 Dose: 20 mg Vancomycin HCl 1,000 mg/ (Sodium Chloride) 250 mls @ 166.667 mls/hr IVPB Q6H ZACH Magnesium Hydroxide (Milk Of Magnesia Liq*) 30 ml PO Q4H PRN PRN Reason: CONSTIPATION Sumatriptan Succinate (Imitrex Tab*) 100 mg PO DAILY PRN PRN Reason: MIGRAINE HEADACHE Last Admin: 06/23/18 08:07 Dose: 100 mg Vital Signs - 8 hr 06/23/18 06/23/18 06/23/18 10:43 12:02 12:43 Temperature 36.7 C Pulse Rate 63 Respiratory 16 17 14 Rate Blood Pressure 100/65 (mmHg) O2 Sat by Pulse 97 Oximetry 06/23/18 06/23/18 14:33 16:35 Temperature 36.7 C Pulse Rate 69 Respiratory 20 14 Rate Blood Pressure 107/75 (mmHg) O2 Sat by Pulse 95 Oximetry Oxygen Devices in Use Now: None Appearance: alert, talkative Neck: NL Appearance and Movements; NL JVP Respiratory: Clear to Auscultation Cardiovascular: NL Sounds; No Murmurs; No JVD, RRR Skin: - - area of mild erythema, warmth, tenderness dorsum LT hand and separately LT elbow, FROM elbow, edema mild, few acneiform lesions dorsum LT hand Neurological: Alert and Oriented x 3 Lines/Tubes/Other Access: Clean, Dry and Intact Peripheral IV Nutrition: Taking PO's Result Diagrams: 06/23/18 05:31 06/23/18 05:31 Microbiology and Other Data: Microbiology 06/22/18 18:06 Aerobic Blood Culture - Preliminary Blood Venous No Growth Day 1 Anaerobic Blood Culture - Preliminary No Growth Day 1 06/22/18 18:06 Aerobic Blood Culture - Preliminary Blood Venous No Growth Day 1 Anaerobic Blood Culture - Preliminary No Growth Day 1 Assess/Plan/Problems-Billing Assessment: 33 yo man admitted with LT hand and elbow cellulitis that failed to respond to outpatient treatment. - Patient Problems (1) Cellulitis of left hand excluding fingers and thumb Current Visit: Yes Status: Acute Priority: High Code(s): L03.114 - CELLULITIS OF LEFT UPPER LIMB SNOMED Code(s): 492588323 Comment: -Appears to be clinically responding to vanco -Will add cefazolin, as bactrim may have had poor tissue penetration -continue to elevate LT limb -Likely can go home tomorrow on oral cefazolin (2) DVT prophylaxis Current Visit: Yes Status: Acute Priority: Low Code(s): PNZ7576 - SNOMED Code(s): 934137804 Comment: early ambulation (3) Post traumatic stress disorder (PTSD) Current Visit: Yes Status: Acute Priority: Low Code(s): F43.10 - POST- TRAUMATIC STRESS DISORDER, UNSPECIFIED SNOMED Code(s): 72952840 Comment: -stable -continue prozac and prn valium
[2018-06-23] MEDS: ceFAZolin 1 GM ADVAN(*) 1 GM in NS 0.9% 50 ML* 50 ML IVPB SCH (19:25)
[2018-06-24] MEDS: ceFAZolin 1 GM ADVAN(*) 1 GM in NS 0.9% 50 ML* 50 ML IVPB SCH ×2 (00:35→06:16)
[2018-06-24] MEDS: Vancomycin(*) 1,000 MG in NS 0.9% 250 ML* 250 ML IVPB SCH ×2 (01:10→08:08)
[2018-06-24] MEDS: FLUoxetine CAP* 20 MG PO SCH (08:05)
[2018-06-24] MEDS: Diazepam TAB(*) 5 MG PO SCH (08:06)
[2018-06-24] MEDS: Hydrocodone/Acetamin 10/325 1 TAB PO PRN (08:07)
[2018-06-24 08:31] VITALS: BP 139/77
--- NOTE | 2018-06-24 08:35 | PN ---
Progress Note - Progress Note Date of Service: 06/24/18 Note: Time spent on discharge including exam of patient, discussion with nurse, patient, CM, review of EMR and preparation of discharge documents 35 minutes.
[2018-06-24] MEDS ORDERED: Cephalexin CAP* 500 MG PO SCH (09:00)
[2018-06-24] MEDS ORDERED: Vancomycin Trough Check NOTE FOLLOW UP ONE ×2 (10:30→14:00)
--- NOTE | 2018-06-24 10:52 | DS ---
CC: Dr. Meyer* DISCHARGE SUMMARY: DATE OF ADMISSION: 06/23/18 DATE OF DISCHARGE: 06/24/18 HISTORY OF PRESENT ILLNESS: This 33-year-old man presented with left hand erythema and warmth. The patient was in his usual state of health until . He reached into cardboard box and felt a scrape on his hand. Twenty to thirty minutes later, he felt swelling and warmth in the area. On 06/20/18, his symptoms were much worse. He went to Urgent Care and was prescribed Bactrim. This did not have any benefit and redness was going up in the arm and had redness on his elbow. In the emergency room, his temperature was 99.6, his white count was 16.2. I note also his CRP level was 7.31, which is in the normal range. The patient was started on vancomycin, later cephazolin was added, he received 3 doses of cefazolin IV in the hospital. The patient seemed very anxious about his symptoms. He said there was some itching. He pointed some tiny red papules, perhaps 1 to 2 mm in diameter. He has these pretty much over his body. I note he is quite fair complexion and has numerous areas of erythema and tiny red papules scattered on his trunk and extremities. He thought his left hand was somewhat swollen and left finger might have been a little numb. His handgrip was normal. There was minimal to 1 + swelling of the left hand. There was no fluid collection in the elbow. I really could not see any evidence of cellulitis at this time. There were ink markings around the elbow and hand, but no real signs of cellulitis on either side of the ink markings. He remained afebrile, in fact temperature is below 99 degrees throughout his hospital stay and repeat white blood count on 06/23/18 was 10.6. Blood cultures 2 sets were drawn on 06/22/18 and no growth at the time of this dictation. The patient will take 7 days of cephalexin 500 mg 4 times a day at home. He will use diphenhydramine p.r.n. for itching. FINAL DIAGNOSES: 1. Cellulitis. 2. Post-traumatic stress disorder. 3. Anxiety. 4. Migraines. 5. Panic disorder. 6. Chronic pain. DISCHARGE MEDICATIONS: 1. Cephalexin 500 mg 4 times a day for 7 days. 2. Diphenhydramine 50 mg every 6 hours p.r.n. itching. 3. Sumatriptan 100 mg as directed. 4. Hydrocodone/acetaminophen 10/325 as directed. 5. Medical marijuana. 6. Albuterol inhaler 1 puff every 4 hours p.r.n. 7. Fluoxetine 20 mg daily. 8. Diazepam 5 mg b.i.d. CONDITION ON DISCHARGE: Improved. DISPOSITION ON DISCHARGE: Discharged home. [id number]/[facility] #: [id number] MTDD
== END 2018-06-24 10:45 | disposition home or self-care (01) | DRG 720 ==
LOC: ED 16:32 → MED 21:55 → OBSVTOIN 06-23 14:00
PROVIDERS: ADMIT Student in an Organized Health Care Education/Training Program; ATTEND Internal Medicine
DX: A41.9 Sepsis, unspecified organism (principal); L03.114 Cellulitis of left upper limb; K21.9 Gastro-esophageal reflux disease without esophagitis; K58.9 Irritable bowel syndrome, unspecified; M17.0 Bilateral primary osteoarthritis of knee; M46.90 Unspecified inflammatory spondylopathy, site unspecified; G43.909 Migraine, unspecified, not intractable, without status migrainosus; F41.0 Panic disorder [episodic paroxysmal anxiety]; F32.9 Major depressive disorder, single episode, unspecified; F43.10 Post-traumatic stress disorder, unspecified; G89.29 Other chronic pain; M54.9 Dorsalgia, unspecified; K08.89 Other specified disorders of teeth and supporting structures; M54.2 Cervicalgia; S60.222A Contusion of left hand, initial encounter; X58.XXXA Exposure to other specified factors, initial encounter; Z90.49 Acquired absence of other specified parts of digestive tract; Z83.3 Family history of diabetes mellitus; Y92.009 Unspecified place in unspecified non-institutional (private) residence as the place of occurrence of the external cause; Z88.8 Allergy status to other drugs, medicaments and biological substances; Z88.1 Allergy status to other antibiotic agents; Z88.0 Allergy status to penicillin; Z91.013 Allergy to seafood
CPT/HCPCS: 36415; 80048; 80053; 80202; 81003; 83605; 85025; 86140; 86618; 87040; 99283; A9270-GY; J0690; J3370

== ENCOUNTER 2019-01-01 14:10 | Emergency (ER) | payer OTHER ==
[2019-01-01] MEDS ORDERED: Metoclopramide IV* 5 MG/ML 2 ML VIAL IV SLOW PU ONE (14:24)
[2019-01-01] MEDS ORDERED: diPHENhydraMINE PO* 25 MG PO ONE (14:24)
[2019-01-01] MEDS ORDERED: NS 0.9% 1000 ML** 1,000 ML IV ONE (14:24)
[2019-01-01] MEDS ORDERED: Magnesium Sulfate 2 GM IV* 2 GM/50 ML BAG IVPB ONE (14:24)
[2019-01-01] MEDS ORDERED: Ketorolac INJ* 30 MG/ML 1 ML VIAL IV ONE (14:24)
--- OUTSIDE RECORDS SUMMARY | 2019-01-01 14:25 | XMS REPORT | Continuity of Care Document ---
:1985 External Reference #:[id number] Author Name Gilson Olivares NP (transmitted by agent of provider Gracia Dyer) Address [address] [facility], [place] [address] Care Team Providers Name Role Phone Noe Meyer MD - Family Medicine Care Team Information Agricultural Lender Toi Dodson MD - Sports Care Team Information Agricultural Lender [phone] Medicine Paramjit Ventura DO - Interventional Care Team Information Agricultural Lender Pain Medicine Problems Active Problems Provider Date Chondromalacia of patella Osorio Gill M.D. Onset: 08/27/2014 Lumbar radiculopathy Raffy Corona M.D. Onset: 09/27/2015 Migraine without aura, not refractory Demi Robb M.D. Onset: 2016 Convalescence after surgery Raffy Corona M.D. Onset: 10/25/2017 Displacement of lumbar intervertebral disc Raffy Corona M.D. Onset: 2017 without myelopathy Social History Type Date Description Comments Sex Unknown ETOH Use Rarely consumes alcohol Recreational Drug Use Denies Drug Use Tobacco Use Start: Unknown End: Patient is a former smoker Unknown Smoking Status Reviewed: 11/15/18 Patient is a former smoker Exercise Type/Frequency Does not exercise Allergies, Adverse Reactions, Alerts Active Allergies Reaction Severity Comments Date Penicillins Hives, Itching, swelling 04/04/2013 Aspirin childhood reaction 09/20/2013 Amoxicillin Hives, Itching, swelling 08/27/2014 Clindamycin Hives 08/27/2014 Alcohol rubbing skin gets dry and scaley 06/28/2017 Doxycycline vomiting 07/22/2018 Tomatoes Hives Moderate 11/15/2018 Medications Active Medications SIG Qnty Indications Ordering Provider Date Medrol take as directed 21tabs Cory Zuniga, 05/20/2018 4mg per Dosepak M.D. Tablets instructions Sumatriptan 1/2-1 tab by mouth 12tabs G43.009 Isaías Walker, 07/16/2016 Succinate as needed N.P. 100mg Tablets Hydrocodone-Acetam 1 by mouth every Unknown inophen 4-6 hours prn. 10-325mg Tablets Valium 1-1 /2 as needed Unknown 5mg anxiety Tablets Proair HFA 2 puffs by mouth Unknown every 4 hours as 108(90Base) needed mcg/Act Aerosol Gaviscon Extra as needed with Unknown Strength meals ( helps with nausea , heartburn 254-237.5mg/5ML ) Suspension Zyrtec Allergy one tab by mouth Unknown everyday 20mg Capsules Multi Adult 1 by mouth every Unknown Gummies day Chewtabs Aleve 1-2 by mouth twice Unknown 220mg a day as needed Capsules Prozac one by mouth twice Unknown 20mg a day on 08/26/17, Capsules states he is currently taking 60 MG daily Minipress at night as needed Unknown 1mg Capsules Riboflavin 1 by mouth every Cory Zuniga, 400mg day M.D. Tablets Co Q 10 1 by mouth twice a Unknown 100mg day Capsules Immunizations Description No Information Available Vital Signs Date Vital Result Comment 11/15/2018 11:23am Height 74 inches 6'2" Weight 244.00 lb Heart Rate 86 /min BP Systolic 142 mmHg BP Diastolic 88 mmHg BMI (Body Mass Index) 31.3 kg/m2 08/15/2018 10:56am Height 74 inches 6'2" Weight 247.12 lb Heart Rate 86 /min BP Systolic 120 mmHg BP Diastolic 88 mmHg BMI (Body Mass Index) 31.7 kg/m2 Results Description No Information Available Procedures Description No Information Available Medical Devices Description No Information Available Encounters Type Date Location Provider Dx Diagnosis Office Visit 08/15/2018 [facility] Cory Zuniga, G43.009 Migraine w/o aura, 11:00a [facility] Jia not intractable, w/o status migrainosus M54.5 Low back pain Office Visit 07/22/2018 [facility] Dinh Howe L23.9 Allergic contact 9:10a Infectious Jia Byrne dermatitis, Diseases unspecified cause Office Visit 07/15/2018 [facility] Neto Coronel, L23.9 Allergic contact 10:00a dermatitis, unspecified cause Office Visit 06/24/2018 [facility] Zhou Jauregui, L03.114 Cellulitis of 9:09a nish Mortensen M.D. left upper limb Hospitalists Office Visit 06/23/2018 [facility] Garrett Howe L03.114 Cellulitis of 9:08a nish Mortensen M.D.,FACP left upper limb Hospitalists Office Visit 06/22/2018 [facility] L03.114 Cellulitis of 9:07a nish Mortensen NP left upper limb Hospitalists Assessments Date Code Description Provider 08/15/2018 G43.009 Migraine without aura, not Cory Zuniga M.D. intractable, without status migra 08/15/2018 M54.5 Low back pain Cory Zuniga M.D. 07/22/2018 L23.9 Allergic contact dermatitis, Dinh Byrne M.D. unspecified cause 07/15/2018 L23.9 Allergic contact dermatitis, Neto Coronel MD unspecified cause 06/24/2018 L03.114 Cellulitis of left upper limb Zhou Jauregui M.D. 06/23/2018 L03.114 Cellulitis of left upper limb Garrett Negrete M.D., FACP 06/22/2018 L03.114 Cellulitis of left upper limb Lucila Elder NP Plan of Treatment Future Appointment(s):02/13/2019 10:45 am - Cory Zuniga M.D. at [facility] Functional Status Description No Information Available Mental Status Description No Information Available Referrals Refer to Reason for Referral Status Appt Date Luis Manuel Salvador MD Created [address] [place], [place] [id number] [phone]
--- NOTE | 2019-01-01 14:48 | ED ---
Headache - HPI Summary HPI Summary: This patient is a 33 year old M presenting to [facility] accompanied by mother with a chief complaint of migraines since 1100 this morning 01/01/19. Pt reports hx migraines (3-4 yrs) but current migraine is more painful than normal which he thinks is aggravated by his dental pain. Dr. Zuniga is neurologist. Pt reports occipital nerve block about 3 wks ago which did not alleviate symptoms. Patient reports teeth pain due to broken teeth in mouth which he is supposed to get a root canal in the left lower molar for tomorrow. Pt reports usual intake of 5mg Reglan, 100mg Sumatriptan, and of Vicodin which he took last at 1200 this afternoon but reports symptoms were not alleviated. Pt reports he feels hot but is not aware of any fevers. MHx Asthma, back problems, PTSD, general anxiety. - History Of Current Complaint Chief Complaint: EDHeadache Stated Complaint: HEADACHE PER EMS Time Seen by Provider: 01/01/19 14:12 Hx Obtained From: Patient Onset/Duration: Started hours ago, Still Present Timing: Constant Character: Migraine Aggravating Factor: Nothing Allevating Factors: Nothing Associated Signs And Symptoms: Other (Noted In Comments) - dental pain - Allergies/Home Medications Allergies/Adverse Reactions: Allergies Allergy/AdvReac Type Severity Reaction Status Date / Time balsam vanessa Allergy Severe Hives Verified 01/01/19 14:18 formaldehyde Allergy Severe Hives Verified 01/01/19 14:18 penicillin G Allergy Severe Hives/Diff. Verified 01/01/19 14:18 Breathing/I tching prednisone Allergy Severe Itching Verified 01/01/19 14:18 propylene glycol Allergy Severe Hives Verified 01/01/19 14:18 aspirin Allergy Mild Unknown Verified 01/01/19 14:18 Reaction Details adhesive Allergy See Comment Verified 01/01/19 14:18 tomato Allergy Rash Verified 01/01/19 14:18 doxycycline AdvReac Severe GI Upset Verified 01/01/19 14:18 clindamycin AdvReac Nausea Verified 01/01/19 14:18 isopropamide AdvReac Nausea Verified 01/01/19 14:18 cinnamic aldehyde Allergy Severe Hives Uncoded 01/01/19 14:18 Methyldibromo Glutaronitrite Allergy Severe Hives Uncoded 01/01/19 14:18 Seafood Allergy Intermediate GI Upset Uncoded 01/01/19 14:18 rubbing alcohol Allergy Hives Uncoded 01/01/19 14:18 PMH/Surg Hx/FS Hx/Imm Hx Endocrine/Hematology History: Reports: Hx Blood Transfusions Denies: Hx Diabetes, Hx Sickle Cell Disease, Hx Thyroid Disease Cardiovascular History: Denies: Hx Hypertension, Hx Pacemaker/ICD, Other Cardiovascular Problems/ Disorders Respiratory History: Reports: Hx Asthma - HAS INHALER, Hx Chronic Bronchitis, Hx Pneumonia, Other Respiratory Problems/Disorders - History of pneumonia 02/21 Denies: Hx Chronic Obstructive Pulmonary Disease (COPD) GI History: Reports: Hx Gastroesophageal Reflux Disease - PT TAKES TUMS WHEN NEEDED, Hx Irritable Bowel - MILD SINCE REMOVAL OF GALLBLADDER, Hx Jaundice - jaundiced at Denies: Hx Ulcer, Other GI Disorders History: Reports: Hx Kidney Stones - ON AND OFF Denies: Hx Renal Disease, Other Problems/Disorders Musculoskeletal History: Reports: Hx Arthritis - Arthritis, knees and spine, Hx Back Problems Denies: Hx Scoliosis, Other Musculoskeletal History Sensory History: Reports: Hx Contacts or Glasses - GLASSES Denies: Hx Hearing Aid Opthamlomology History: Reports: Hx Contacts or Glasses - GLASSES Neurological History: Reports: Hx Migraine Denies: Hx Headaches, Other Neuro Impairments/Disorders Psychiatric History: Reports: Hx Anxiety, Hx Depression, Hx Panic Disorder, Hx Post Traumatic Stress Disorder, Hx Inpatient Treatment, Hx Suicide Attempt - States not in last 5 years Denies: Other Psychiatric Issues/Disorders - Surgical History Surgery Procedure, Year, and Place: GALLBLADDER 2012, ORAL X 9, RIGHT KNEE X2,. LSP 10/2017. INJECTIONS IN SPINE Hx Anesthesia Reactions: No - SLEEPS ALONG TIME AFTER Infectious Disease History: No Infectious Disease History: Denies: Hx Hepatitis, Hx Human Immunodeficiency Virus (HIV), History Other Infectious Disease, Traveled Outside the [place] in Last 30 Days - Family History Known Family History: Positive: Diabetes, Other - cancer - Social History Alcohol Use: Rare Alcohol Amount: 3-4 times yearly Substance Use Type: Reports: Marijuana Substance Use Comment - Amount & Last Used: has rx Smoking Status (MU): Never Smoked Tobacco Type: Cigarettes Amount Used/How Often: 1 ppd for 6 years Length of Time of Smoking/Using Tobacco: 6 yrs Have You Smoked in the Last Year: No Review of Systems Positive: Dental Pain Positive: Headache - migraine All Other Systems Reviewed And Are Negative: Yes Physical Exam - Summary Physical Exam Summary: Constitutional: Anxious, intermittent crying Skin: Warm, Dry HENT: dental carries of the bilateral lower 2nd molars, no periapical abscess Eyes: Conjunctiva normal Neck: Musculoskeletal ROM normal neck. (-) JVD, (-) Stridor, (-) Nuchal rigidity Cardio: Rhythm regular, rate normal, Heart sounds normal; Intact distal pulses; Radial pulses are 2+ and symmetric. (-) Murmur Pulmonary/Chest wall: Effort normal. (-) Respiratory distress, (-) Wheezes, (-) Rales Abd: Soft, (-) tenderness, (-) Distension, (-) Guarding, (-) Rebound Musculoskeletal: (-) Edema Lymph: (-) Cervical adenopathy Neuro: Alert, Oriented x3 Psych: Anxious Triage Information Reviewed: Yes Vital Signs On Initial Exam: Initial Vitals Temp Pulse Resp BP Pulse Ox 98.0 F 74 26 140/84 97 01/01/19 14:10 01/01/19 14:10 01/01/19 14:10 01/01/19 14:10 01/01/19 14:10 Vital Signs Reviewed: Yes Procedures - Sedation Patient Received Moderate/Deep Sedation with Procedure: No Diagnostics - Vital Signs Vital Signs Temp Pulse Resp BP Pulse Ox 01/01/19 14:10 98.0 F 74 26 140/84 97 - Laboratory Lab Statement: Any lab studies that have been ordered have been reviewed, and results considered in the medical decision making process. Re-Evaluation - Re-Evaluation First Eval Re-Evaluation Time: 15:00 Change: Improved - Patient resting at this time no acute distress Second Eval Re-Evaluation Time: 15:50 Change: Improved - Patient states his headache has resolved, he would like to go home. Headache Course/Dx - Course Course Of Treatment: 33 y/o male with a history of migraines, dental pain and depression and anxiety presents with migraine. On arrival to ED, patient very anxious and crying, will give medications including Reglan, Toradol, IV fluids and reassess. No e/o dental infection on exam. This is a patient who presents with headache. History of headaches of similar type. This is not the worst headache patient has had, and no additional features today to suggest need for further workup on a truly emergent basis (imaging, LP, etc). - Diagnoses Differential Diagnosis/HQI/PQRI: Migraine Provider Diagnoses: Migraine, Pain, dental Discharge ED - Sign-Out/Discharge Documenting (check all that apply): Patient Departure - discharge - Discharge Plan Condition: Stable Disposition: HOME Patient Education Materials: Migraine Headache (ED) Referrals: Noe Meyer MD [Primary Care Provider] - If Needed Additional Instructions: You seen the emergency department for headache. Please follow up with your neurologist. Please return for worsening headaches, fevers, neck pain or stiffness, inability to eat or drink or if you're concerned - Billing Disposition and Condition Condition: STABLE Disposition: Home - Attestation Statements Document Initiated by Fred: Yes Documenting Scribe: Mere Whitmore Provider For Whom Fred is Documenting (Include Credential): Dr. Jen Walker MD Scribe Attestation: Mere Cruz, scribed for Dr. Jen Walker MD on 01/01/19 at 2355. Scribe Documentation Reviewed: Yes Provider Attestation: The documentation as recorded by the Mere ashley accurately reflects the service I personally performed and the decisions made by me, Dr. Jen Walker MD Status of Scribe Document: Viewed
[2019-01-01 16:12] VITALS: BP 111/74
== END 2019-01-01 16:12 | disposition home or self-care (01) ==
LOC: ED 14:10
DX: G43.909 Migraine, unspecified, not intractable, without status migrainosus (principal); K08.89 Other specified disorders of teeth and supporting structures; K03.81 Cracked tooth; K02.9 Dental caries, unspecified; J45.909 Unspecified asthma, uncomplicated; K21.9 Gastro-esophageal reflux disease without esophagitis; Z88.6 Allergy status to analgesic agent; Z88.1 Allergy status to other antibiotic agents; Z88.0 Allergy status to penicillin; Z88.8 Allergy status to other drugs, medicaments and biological substances; Z91.018 Allergy to other foods; Z91.048 Other nonmedicinal substance allergy status; Z87.891 Personal history of nicotine dependence
CPT/HCPCS: 96361; 96365; 96375; 99282; A9270-GY; J1885; J2765; J3475

== ENCOUNTER 2019-02-17 16:13 | Emergency (ER) | payer OTHER ==
[2019-02-17 16:19] VITALS: BP 140/115
--- OUTSIDE RECORDS SUMMARY | 2019-02-17 16:42 | XMS REPORT | Continuity of Care Document ---
:1985 External Reference #:[id number] Author Name Isaías Walker N.P. (transmitted by agent of provider Keily Alba) Address [address] [facility], [place] [address] Care Team Providers Name Role Phone Noe Meyer MD - Family Medicine Care Team Information Feed Project Engineer [phone] Toi Dodson MD - Sports Care Team Information Feed Project Engineer [phone] Medicine Paramjit Ventura DO - Interventional Care Team Information Feed Project Engineer [phone] Pain Medicine Problems Active Problems Provider Date Chondromalacia of patella Osorio Gill M.D. Onset: 08/27/2014 Lumbar radiculopathy Raffy Corona M.D. Onset: 09/27/2015 Migraine without aura, not refractory Demi Robb M.D. Onset: 2016 Displacement of lumbar intervertebral disc Raffy Corona M.D. Onset: 2017 without myelopathy Convalescence after surgery Raffy Corona M.D. Onset: 10/25/2017 Social History Type Date Description Comments Sex Unknown ETOH Use Rarely consumes alcohol Recreational Drug Use Denies Drug Use Tobacco Use Start: Unknown End: Patient is a former smoker Unknown Smoking Status Reviewed: 02/09/19 Patient is a former smoker Exercise Type/Frequency Does not exercise Allergies, Adverse Reactions, Alerts Active Allergies Reaction Severity Comments Date Penicillins Hives, Itching, swelling 04/04/2013 Aspirin childhood reaction 09/20/2013 Amoxicillin Hives, Itching, swelling 08/27/2014 Clindamycin Hives 08/27/2014 Alcohol rubbing skin gets dry and scaley 06/28/2017 Doxycycline vomiting 07/22/2018 Tomatoes Hives Moderate 11/15/2018 Medications Active Medications SIG Qnty Indications Ordering Provider Date Pregabalin 1 tablet twice a 30caps G50.1 Isaíasgali Walker, 02/09/2019 25mg day N.P. Capsules Metoclopramide HCL Take one tab po 9tabs Raffy Davis, 11/15/2018 5mg every 8 hours, M.DCharis Tablets as needed for nausea for 3 days. Sumatriptan Succinate 1/2-1 tab by 12tabs G43.009 Isaíasgali Walker, 2016 mouth as needed N.P. 100mg Tablets Hydrocodone-Acetamino 1 by mouth every Unknown phen 4-6 hours prn. 10-325mg Tablets Valium 1-1 /2 as Unknown 5mg Tablets needed anxiety Proair HFA 2 puffs by mouth Unknown 108(90Base) every 4 hours as mcg/Act Aerosol needed Gaviscon Extra as needed with Unknown Strength meals ( helps with nausea , 254-237.5mg/5ML heartburn ) Suspension Zyrtec Allergy one tab by mouth Unknown 20mg everyday Capsules Multi Adult Gummies 1 by mouth every Unknown day Chewtabs Aleve 1-2 by mouth Unknown 220mg Capsules twice a day as needed Prozac one by mouth Unknown 20mg Capsules twice a day on 08/26/17, states he is currently taking 60 MG daily Riboflavin 1 by mouth every [facility], 400mg day M.D. Tablets Co Q 10 1 by mouth twice Unknown 100mg Capsules a day Hydromorphone HCL Unknown 2mg Tablets Medications Administered in Office Medication SIG Qnty Indications Ordering Date Provider Methylprednisolone Acetate Inject 0.5 mL 1ml G43.Janis Kilpatrick 11/15/2018 into the right Jia Davis 40mg/ml Suspension and left inion between the mid occipital and mastoid process. Immunizations Description No Information Available Vital Signs Date Vital Result Comment 02/09/2019 11:34am Height 74 inches 6'2" Weight 248.50 lb Heart Rate 88 /min BP Systolic Sitting 132 mmHg BP Diastolic Sitting 94 mmHg Respiratory Rate 20 /min BMI (Body Mass Index) 31.9 kg/m2 02/09/2019 11:28am Height 74 inches 6'2" Weight 248.50 lb BMI (Body Mass Index) 31.9 kg/m2 Results Description No Information Available Procedures Date Code Description Status 11/15/2018 28184 Injection For Nerve Block, Greater Occipital Nerve Completed Medical Devices Description No Information Available Encounters Type Date Location Provider Dx Diagnosis Office Visit 08/15/2018 [facility] Cory Zuniga, G43.009 Migraine w/o aura, 11:00a [facility] not intractable, w/o status migrainosus M54.5 Low back pain Assessments Date Code Description Provider 02/09/2019 G43.009 Migraine without aura, not intractable, Isaías Walker, N.P. without status migra 02/09/2019 G50.1 Atypical facial pain Isaías Walker N.P. 02/09/2019 M54.5 Low back pain Isaías Walker N.P. 11/15/2018 G43.009 Migraine without aura, not intractable, Gilson Olivares NP without status migra 08/15/2018 G43.009 Migraine without aura, not intractable, Cory Zuniga M.D. without status migra 08/15/2018 M54.5 Low back pain Cory Zuniga M.D. Plan of Treatment Future Appointment(s):04/27/2019 10:00 am - [facility]/09/2019 - Isaías Walker N.P.G43.009 Migraine without aura, not intractable, without status [id number] Atypical facial painNew Medication:Pregabalin 25 mg - 1 tablet twice a dayNew Xrays:MRI Brain W/ Wo, Ordered: 02/09/19Follow up:8 [id number] Low back pain Functional Status Description No Information Available Mental Status Description No Information Available Referrals Refer to Reason for Referral Status Appt Luis Manuel Sandy MD Created [address] [place] [phone]
== END 2019-02-17 19:49 | disposition left against medical advice (07) ==
LOC: ED 16:13
DX: R51 Headache (principal); Z53.21 Procedure and treatment not carried out due to patient leaving prior to being seen by health care provider
CPT/HCPCS: 99281